=== PATIENT | female | born 1950 | race Caucasian/White ===

== ENCOUNTER → 2016-06-07 | Outpatient (REF) | payer MEDICAID ==
[~2016-06-07] MED LIST: ACCU40TA PO; ALBU17IN INH; CITA20TA4 PO; CITA40TA4 PO; Dulera INH; MEGE40TA PO; MONT10TA2 PO; MOTR200T44 PO; MULTCAP PO; SIMV40TA2 PO; THEO1CAP4 PO; VALI2TAB PO; VICO5TAB16 PO; albuterol sulfate NEB
[2016-06-07 18:20] LABS: ALBUMIN 3.8 GM/DL (3.2-5.2); ALBUMIN/GLOBULIN RATIO 1.23 (1.00-1.93); ALKALINE PHOSPHATASE 75 U/L (45-117); ALT/SGPT 24 U/L (12-78); ANION GAP 5 MEQ/L (8-16); AST/SGOT 16 U/L (15-37); BILIRUBIN,TOTAL 0.3 MG/DL (0.2-1.0); BLOOD UREA NITROGEN 14 MG/DL (7-18); CALCIUM LEVEL 9.6 MG/DL (8.8-10.2); CARBON DIOXIDE LEVEL 35 MEQ/L (21-32); CHLORIDE LEVEL 105 MEQ/L (98-107); CHOLESTEROL LEVEL 211 MG/DL (<200); CREATININE FOR GFR 0.91 MG/DL (0.55-1.02); GLOMERULAR FILTRATION RATE > 60.0 (>45); GLUCOSE, FASTING 103 MG/DL (80-110); POTASSIUM SERUM 4.5 MEQ/L (3.5-5.1); SODIUM LEVEL 145 MEQ/L (136-145); THEOPHYLLINE LEVEL 3.1 UG/ML (10.0-20.0); TOTAL PROTEIN 6.9 GM/DL (6.4-8.2); TRIGLYCERIDES LEVEL 190 MG/DL (<150)
[2016-06-07 19:03] LABS: BASO # 0.1 K/mm3 (0.0-0.2); EOS # 0.3 K/mm3 (0.0-0.50); EOS % 5.1 % (0.0-3.0); LARGE UNSTAINED CELL # 0.1 K/mm3 (0.0-0.4); LARGE UNSTAINED CELL % 2.1 % (0.0-4.0); LYMPH # 1.6 K/mm3 (1.5-4.5); LYMPH % 25.9 % (24.0-44.0); MEAN CORPUSCULAR HGB CONC 30.6 g/dl (32.0-36.5); MEAN CORPUSCULAR VOLUME 91.5 fl (80.0-96.0); MONO # 0.3 K/mm3 (0.0-0.8); MONO % 4.5 % (0.0-5.0); NEUTROPHILS # 3.7 K/mm3 (1.8-7.7); NEUTROPHILS % 61.4 % (36.0-66.0); PLATELET COUNT, AUTOMATED 232 k/mm3 (150-450); RED CELL DISTRIBUTION WIDTH 13.3 % (11.5-14.5)
== END ==
LOC: M LAB REF 16:41
PROVIDERS: ATTEND Nurse Practitioner Adult Health
DX: J45.909 Unspecified asthma, uncomplicated (principal); E78.00 Pure hypercholesterolemia, unspecified; E11.9 Type 2 diabetes mellitus without complications; I10 Essential (primary) hypertension

== ENCOUNTER → 2016-10-06 | Outpatient (REF) | payer MEDICARE, MEDICAID ==
[~2016-10-06] MED LIST changes: -MEGE40TA PO; +MEGE40TA18 PO
== END ==
LOC: M LAB REF 10:32
PROVIDERS: ATTEND Physician Assistant
DX: N39.0 Urinary tract infection, site not specified (principal)

== ENCOUNTER → 2017-04-07 | Outpatient (REF) | payer MEDICARE ==
[2017-04-07 15:44] LABS: THEOPHYLLINE LEVEL 13.3 UG/ML (10.0-20.0)
== END ==
LOC: M LAB REF 15:17
DX: J45.909 Unspecified asthma, uncomplicated (principal)
CPT/HCPCS: 80198

== ENCOUNTER 2017-10-07 11:36 | Emergency (ER) | payer MEDICARE, MEDICAID ==
[2017-10-07 15:05] LABS: BASO # 0.1 10^3/uL (0.0-0.2); BASO % 0.8 % (0.0-1.0); EOS # 0.3 10^3/uL (0.0-0.50); EOS % 4.9 % (0.0-3.0); HEMATOCRIT 39.9 % (36.0-47.0); HEMOGLOBIN 11.7 g/dl (12.0-15.5); IMMATURE GRANULOCYTE % 0.3 % (0-3.0); LYMPH # 1.4 10^3/uL (1.5-4.5); LYMPH % 22.5 % (24.0-44.0); MEAN CORPUSCULAR HGB CONC 29.3 g/dl (32.0-36.5); MEAN CORPUSCULAR VOLUME 88.7 fl (80.0-96.0); MONO # 0.6 10^3/uL (0.0-0.8); MONO % 9.5 % (0.0-5.0); NEUTROPHILS # 3.8 10^3/uL (1.8-7.7); PLATELET COUNT, AUTOMATED 245 10^3/uL (150-450); RED CELL DISTRIBUTION WIDTH 16.4 % (11.5-14.5); WHITE BLOOD COUNT 6.1 10^3/uL (4.0-10.0)
[2017-10-07 15:14] LABS: INR 0.98; PROTHROMBIN TIME 13.1 SECONDS (12.1-14.4)
[2017-10-07 15:15] LABS: PARTIAL THROMBOPLASTIN TIME 23.9 SECONDS (25.4-37.6)
[2017-10-07 15:22] LABS: ANION GAP 5 MEQ/L (8-16); BLOOD UREA NITROGEN 11 MG/DL (7-18); CALCIUM LEVEL 9.5 MG/DL (8.8-10.2); CARBON DIOXIDE LEVEL 32 MEQ/L (21-32); CHLORIDE LEVEL 107 MEQ/L (98-107); CREATININE FOR GFR 1.37 MG/DL (0.55-1.30); GLOMERULAR FILTRATION RATE 41.3 (>45); GLUCOSE, FASTING 83 MG/DL (70-100); POTASSIUM SERUM 3.7 MEQ/L (3.5-5.1); SODIUM LEVEL 144 MEQ/L (136-145)
[2017-10-07] MEDS: APIXABAN 5 MG TAB (ELIQUIS) PO (16:44)
== END 2017-10-07 16:46 | disposition home or self-care (01) ==
LOC: M ED 11:36
DX: I82.432 Acute embolism and thrombosis of left popliteal vein (principal); W10.8XXA Fall (on) (from) other stairs and steps, initial encounter; Y92.098 Other place in other non-institutional residence as the place of occurrence of the external cause; R51 Headache; M51.37 Other intervertebral disc degeneration, lumbosacral region; M16.11 Unilateral primary osteoarthritis, right hip; M85.851 Other specified disorders of bone density and structure, right thigh; I10 Essential (primary) hypertension; J45.909 Unspecified asthma, uncomplicated; E11.9 Type 2 diabetes mellitus without complications; H26.9 Unspecified cataract; F41.9 Anxiety disorder, unspecified; F32.9 Major depressive disorder, single episode, unspecified
CPT/HCPCS: 72110

== ENCOUNTER → 2018-02-01 | Outpatient (REF) | payer MEDICARE ==
[2018-02-01 18:36] LABS: THEOPHYLLINE LEVEL 14.4 UG/ML (10.0-20.0)
== END ==
LOC: M LAB REF 15:47
DX: J45.909 Unspecified asthma, uncomplicated (principal)
CPT/HCPCS: 80198

== ENCOUNTER → 2018-08-23 | Outpatient (REF) | payer OTHER ==
[~2018-08-23] MED LIST changes: +AMBI5TAB PO; -CITA20TA4 PO; +CITA20TA6 PO; +CLON0.5T8 PO; +ELIQ5TAB PO; +FURO40TA2 PO; +METO1TAB7 PO; +TRAM50TA2 PO; +TRAZ-163 PO; -VICO5TAB16 PO; +VICO5TAB17 PO; +VITA1TAB23 PO; +[UNRECOGNIZED DRUG - OTHER] PO
== END ==
LOC: M LAB REF 17:33
PROVIDERS: ATTEND Nurse Practitioner Adult Health
DX: J45.909 Unspecified asthma, uncomplicated (principal)

== ENCOUNTER → 2019-01-17 | Outpatient (REF) | payer OTHER ==
[2019-01-17 17:32] LABS: APPEARANCE, URINE CLOUDY (CLEAR); BACTERIA, URINE AUTO 1+ (NEGATIVE); BILIRUBIN, URINE AUTO NEGATIVE (NEGATIVE); BLOOD, URINE BLOOD 1+ (NEGATIVE); CALCIUM OXALATE CRYSTALS MODERATE; COLOR, URINE YELLOW (YELLOW); GLUCOSE, URINE (UA) AUTO NEGATIVE (NEGATIVE); KETONE, URINE AUTO NEGATIVE (NEGATIVE); LEUKOCYTE ESTERASE, URINE AUTO 3+ (NEGATIVE); NITRITE, URINE AUTO POSITIVE (NEGATIVE); PROTEIN, URINE AUTO 2+ mg/dL (NEGATIVE); RBC, URINE AUTO 38 /HPF (0-3); SPECIFIC GRAVITY URINE AUTO 1.015 (1.002-1.035); SQUAMOUS EPITHELIAL CELL UR AU 3 /HPF (0-6); UROBILINOGEN, URINE AUTO 0.2 mg/dL (0.0-2.0); WBC, URINE AUTO TNTC /HPF (0-3)
== END ==
LOC: M LAB REF 16:37
PROVIDERS: ATTEND Obstetrics & Gynecology
DX: B37.2 Candidiasis of skin and nail (principal); N32.81 Overactive bladder; N39.41 Urge incontinence

== ENCOUNTER → 2019-01-31 | Outpatient (REF) | payer OTHER, MEDICARE ==
[2019-01-31 13:40] LABS: THEOPHYLLINE LEVEL < 2.0 UG/ML (10.0-20.0)
[2019-01-31 14:06] LABS: ALBUMIN 3.4 GM/DL (3.2-5.2); ALT/SGPT 29 U/L (12-78); BILIRUBIN,TOTAL 0.3 MG/DL (0.2-1.0); BLOOD UREA NITROGEN 25 MG/DL (7-18); CALCIUM LEVEL 9.9 MG/DL (8.8-10.2); CARBON DIOXIDE LEVEL 34 MEQ/L (21-32); CHLORIDE LEVEL 106 MEQ/L (98-107); CHOLESTEROL LEVEL 187 MG/DL (<200); CHOLESTEROL RISK RATIO 3.596 (<5); CREATININE FOR GFR 1.41 MG/DL (0.55-1.30); GLOMERULAR FILTRATION RATE 39.7 (>45); GLUCOSE, FASTING 92 MG/DL (70-100); HDL CHOLESTEROL 52 MG/DL (>40); LDL CHOLESTEROL 83 MG/DL (<100); NON-HDL-C 135 MG/DL; SODIUM LEVEL 143 MEQ/L (136-145); TRIGLYCERIDES LEVEL 258 MG/DL (<150)
== END ==
LOC: M LAB REF 12:24
PROVIDERS: ATTEND Nurse Practitioner Adult Health
DX: J45.909 Unspecified asthma, uncomplicated (principal); E11.9 Type 2 diabetes mellitus without complications; E78.00 Pure hypercholesterolemia, unspecified; I10 Essential (primary) hypertension

== ENCOUNTER 2019-02-25 10:28 | Inpatient (IN) | payer MEDICARE ==
[~2019-02-25] VITALS: Ht 160 cm; Wt 115.9 kg
[~2019-02-25 10:28] MED LIST changes: +CLON0.5T2 PO; -CLON0.5T8 PO; -SIMV40TA2 PO; +SIMV40TA20 PO
[2019-02-25] MEDS ORDERED: ASPI81TA85 PO (10:53)
[2019-02-25] MEDS ORDERED: NS 1,000 ML IV ONE ×2 (11:15→13:00)
[2019-02-25] MEDS ORDERED: ONDANSETRON 4MG/2ML VIAL (J2405) IV ONE (11:15)
[2019-02-25 11:28] LABS: BASO % 0.1 % (0.0-1.0); EOS % 0.3 % (0.0-3.0); HEMATOCRIT 37.2 % (36.0-47.0); HEMOGLOBIN 11.5 g/dl (12.0-15.5); LYMPH # 0.3 10^3/uL (1.5-5.0); LYMPH % 3.9 % (24.0-44.0); MEAN CORPUSCULAR HEMOGLOBIN 27.1 pg (27.0-33.0); MEAN CORPUSCULAR HGB CONC 30.9 g/dl (32.0-36.5); MEAN CORPUSCULAR VOLUME 87.7 fl (80.0-96.0); MONO # 0.7 10^3/uL (0.0-0.8); MONO % 9.4 % (0.0-5.0); NEUTROPHILS # 5.9 10^3/uL (1.5-8.5); NEUTROPHILS % 85.7 % (36.0-66.0); PLATELET COUNT, AUTOMATED 160 10^3/uL (150-450); RED BLOOD COUNT 4.24 10^6/uL (4.00-5.40); WHITE BLOOD COUNT 6.9 10^3/uL (4.0-10.0)
[2019-02-25 12:04] LABS: ALBUMIN 2.4 GM/DL (3.2-5.2); BILIRUBIN,DIRECT 0.3 MG/DL (0.0-0.2); BILIRUBIN,TOTAL 0.6 MG/DL (0.2-1.0); CALCIUM LEVEL 9.1 MG/DL (8.8-10.2); CREATININE FOR GFR 7.33 MG/DL (0.55-1.30); GLOMERULAR FILTRATION RATE 5.9 (>45); POTASSIUM SERUM 4.9 MEQ/L (3.5-5.1); TOTAL PROTEIN 6.5 GM/DL (6.4-8.2)
[2019-02-25] MEDS ORDERED: MYRB25TA PO (12:45)
[2019-02-25] MEDS ORDERED: FLUO40CA PO (12:45)
[2019-02-25] MEDS ORDERED: ANOR1AER INH (12:45)
[2019-02-25] MEDS ORDERED: BUPR1TAB52 PO (12:45)
[2019-02-25] MEDS ORDERED: ALB2.5NEB INH (12:45)
[2019-02-25] MEDS ORDERED: VENTAER INH (12:45)
[2019-02-25 13:01] LABS: INR 1.24; PARTIAL THROMBOPLASTIN TIME 27.6 SECONDS (25.0-38.4); PROTHROMBIN TIME 15.3 SECONDS (11.8-14.0)
[2019-02-25] MEDS ORDERED: LIDOCAINE 2% 5ML JELLY UROJET TOP ONE (13:45)
[2019-02-25] MEDS ORDERED: cefTRIAXone SOD 1 GM in D5W MINI-BAG PLUS 50 ML IV ONE (13:45)
--- NOTE | 2019-02-25 14:03 | REP ---
REASON: Renal failure. The technique utilized in obtaining the radiograph has magnified the cardiac silhouette and accentuated the interstitial markings. There is cardiomegaly accentuated by technique. The lung deutsch are unchanged from 03/25/2014. No new abnormal opacities are suspected on this markedly limited portable examination. Electronically Signed by Melo Felix DO 02/25/2019 02:17 P
--- NOTE | 2019-02-25 14:07 | REP ---
REASON: Vomiting. Limited evaluation of the solid intra-abdominal organs show no gross abnormalities. Limited evaluation of the pancreas and adrenal glands show no gross abnormalities. There are surgical clips in the gallbladder fossa from previous cholecystectomy. There is mild right-sided hydronephrosis and periureteral edema. In the right renal collecting system at the UP junction, there is a 1.1 cm sized calculus. There is mild left-sided hydronephrosis and hydroureter. In the distal left ureter, there is a 9 mm sized calculus. There is a ventral hernia through which a loop of small bowel resides. There is no intestinal obstruction. There is no free fluid or free air in the abdomen or pelvis. There are no urinary bladder calcifications. There are chronic changes seen involving the imaged osseous structures. IMPRESSION: Bilateral collecting system calculi with resultant findings as described above. Small ventral hernia. Other findings as described above. Electronically Signed by Melo Felix DO 02/25/2019 02:17 P
[2019-02-25] MEDS ORDERED: ALBUTEROL SULFATE 2.5 MG/0.5 ML INH NEB SOLN INH PRN (14:45)
[2019-02-25] MEDS ORDERED: clonazePAM 0.5 MG TAB PO PRN (14:45)
--- NOTE | 2019-02-25 15:07 | HPEPDOC ---
[facility] Medical History & Physical Date of Admission Feb 25, 2019 Date of Service: Feb 25, 2019 Attending Physician: MARCO A LEON MD History and Physical CHIEF COMPLAINT: Vomiting and diarrhea HISTORY OF PRESENT ILLNESS: 68-year-old female with past medical history of asthma, hypertension and hyperlipidemia presents with vomiting, abdominal pain or diarrhea for the past 3 days. She reports feeling well up until the symptoms started 3 days ago with vomiting and diarrhea along with right and left flank pain. She also reports associated fever, chills or night sweats. She has never had similar symptoms in the past, denies any sick contacts. In the ED she was found to have acute kidney injury along with bilateral hydronephrosis with obstructive uropathy. Urology was consulted by emergency department, plan for possible surgical intervention later today/tomorrow. Patient denies any chest pain, shortness of breath, headache or joint pain at this time. 10 point review of system is negative except for above PAST MEDICAL HISTORY: 1. Asthma. 2. Hypertension. 3. Hyperlipidemia. PAST SURGICAL HISTORY: 1. 3. 2. Cholecystectomy. SOCIAL HISTORY: Never smoker. Social alcohol use. Denies drug use FAMILY HISTORY: Mother with ovarian cancer Father with [place] ALLERGIES: Please see below. HOME MEDICATIONS: Please see below. PHYSICAL EXAMINATION: VITAL SIGNS: Please see below. GENERAL: No distress HEENT: Normocephalic, atraumatic, moist mucous membranes NECK: Supple CARDIOVASCULAR EXAMINATION: S1, S2, no murmurs RESPIRATORY EXAMINATION: Diminished, Clear to auscultation, no wheezing ABDOMINAL EXAMINATION: Soft, mild tenderness palpation in the right and left lower quadrants, nondistended, positive bowel sounds EXTREMITIES: Range of motion intact SKIN: No rash NEUROLOGICAL EXAMINATION: Alert and oriented 3, no focal deficits PSYCHIATRIC EXAMINATION: Calm and cooperative LABORATORY DATA: See below. IMAGING: CT abdomen and pelvis with bilateral hydronephrosis with obstructive uropathy MICROBIOLOGY: Please see below. ASSESSMENT: 68 year old female with past medical history of asthma, hypertension, hyperlipidemia, peak admitted for acute kidney injury secondary to bilateral obstructive uropathy and hydronephrosis. PLAN: 1. Acute kidney injury. Creatinine greater than 7, was 1.5 one month ago, imaging with bilateral hydronephrosis and obstructive uropathy, urology consulted by emergency department, plan for possible surgical intervention later today/tomorrow. Patient is at low risk for this low to moderate risk procedure, medically cleared for surgery, no need for additional workup prior to surgery. UTI Ceftriaxone, IV fluids, urine and blood cultures pending, pain control. 2. Hypertension. Continue home metoprolol 3. Hyperlipidemia. Continue home simvastatin 4. Asthma. Stable, continue home Anoro Ellipta, Singulair and albuterol when necessary DVT prophylaxis: Heparin subcutaneous GI prophylaxis: Not needed Vital Signs Vital Signs Date Time Temp Pulse Resp B/P (MAP) Pulse Ox O2 Delivery O2 Flow Rate FiO2 02/25/19 13:03 64 18 136/63 (87) 97 Room Air 02/25/19 10:39 99.6 Laboratory Data Labs 24H Laboratory Tests 2 02/25/19 11:14: Immature Granulocyte % (Auto) 0.6, Neutrophils (%) (Auto) 85.7H, Lymphocytes (%) (Auto) 3.9L, Monocytes (%) (Auto) 9.4H, Eosinophils (%) (Auto) 0.3, Basophils (%) (Auto) 0.1, Neutrophils # (Auto) 5.9, Lymphocytes # (Auto) 0.3L, Monocytes # (Auto) 0.7, Eosinophils # (Auto) 0.0, Basophils # (Auto) 0.0, Nucleated Red Blood Cells % (auto) 0.0, Anion Gap 11, Glomerular Filtration Rate 5.9L, Lactic Acid Level 1.1, Calcium Level 9.1, Total Bilirubin 0.6, Direct Bilirubin 0.3H, Aspartate Amino Transf (AST/SGOT) 29, Alanine Aminotransferase (ALT/SGPT) 39, Alkaline Phosphatase 116, Total Protein 6.5, Albumin 2.4L, Albumin/Globulin Ratio 0.59L, Amylase Level 19L, Lipase 79 02/25/19 12:31: Prothrombin Time 15.3H, Prothromb Time International Ratio 1.24, Activated Partial Thromboplast Time 27.6 02/25/19 12:59: Urine Color YELLOW, Urine Appearance CLEAR, Urine pH 7.0, Urine Specific [place] 1.008, Urine Protein 1+H, Urine Glucose (UA) NEGATIVE, Urine Ketones NEGATIVE, Urine Blood 2+H, Urine Nitrite NEGATIVE, Urine Bilirubin NEGATIVE, Urine Urobilinogen 0.2, Urine Leukocyte Esterase 3+H, Urine WBC (Auto) 40H, Urine RBC (Auto) 4H, Urine Hyaline Casts (Auto) 0, Urine Bacteria (Auto) NEGATIVE, Urine Squamous Epithelial Cells 0, Urine Sperm (Auto) CBC/BMP Laboratory Tests 02/25/19 11:14 Microbiology Microbiology 02/25/19 Urine Culture, Received Pending 02/25/19 Blood Culture, Received Pending 02/25/19 Blood Culture, Received Pending Home Medications Scheduled Ascorbic Acid (Vitamin C) 250 Mg Tab, 250 MG PO DAILY Aspirin (Aspir 81) 81 Mg Tablet.dr, 81 MG PO DAILY Bupropion HCl (Bupropion HCl Sr) 100 Mg Tab.sr.12h, 100 MG PO BID Fluoxetine Hcl (Fluoxetine HCl) 40 Mg Capsule, 80 MG PO DAILY Metoprolol Succinate (Metoprolol Succinate) 50 Mg Tab, 50 MG PO DAILY Mirabegron (Myrbetriq) 25 Mg Tab.er.24h, 25 MG PO DAILY Montelukast Sodium (Montelukast Sodium) 10 Mg Tab, 10 MG PO QHS Multivitamin (Multivitamins) 1 Cap Cap, 1 CAP PO DAILY Simvastatin (Simvastatin) 40 Mg Tab, 40 MG PO QHS Theophylline Anhydrous (Elías-24) 300 Mg Cap, 300 MG PO BID Trazodone HCl (Trazodone HCl) 100 Mg Tab, 50 MG PO QPM Scheduled PRN Albuterol Sulfate (Albuterol Sulfate) 2.5 Mg/0.5 Ml Vial.neb, 2.5 MG INH Q4H PRN for SOB/WHEEZING Albuterol Sulfate (Ventolin Hfa) 18 Gm Hfa.aer.ad, 2 PUFF INH Q4-6HP PRN for wheezing Clonazepam (Clonazepam) 0.5 Mg Tab, 0.5 MG PO BID PRN for anxiety Tramadol HCl (Tramadol HCl) 50 Mg Tab, 50 MG PO TID PRN for pain Umeclidinium Brm/Vilanterol Tr (Anoro Ellipta 62.5-25 Mcg INH) 1 Each Blst.w.dev, 1 PUFF INH DAILY PRN for SHORTNESS OF BREATH Allergies Coded Allergies: No Known Drug Allergies (Verified Allergy, Unknown, 02/25/19) A-FIB/CHADSVASC A-FIB History Current/History of A-Fib/PAF?: No MARCO A LEON MD Feb 25, 2019 15:07
--- NOTE | 2019-02-25 15:59 | SMCUROLCON ---
Urology Consultation General Date of Consultation 02/25/19 Reason For Consultation This patient is seen for Acute Renal Failure Hydronephrititis Uti. History of Present Illness Patient is a 68-year-old female with past medical history of asthma, hypertension and hyperlipidemia presents with vomiting, abdominal pain or diarrhea for the past 3 days. She reports feeling well up until the symptoms started 3 days ago with vomiting and diarrhea along with right and left flank pain. She also reports associated fever, chills or night sweats. She has never had similar symptoms in the past, denies any sick contacts. In the ED she was found to have acute kidney injury along with bilateral hydronephrosis with obstructive uropathy. Patient denies any chest pain, shortness of breath, headache or joint pain at this time. Past Medical History Medical History Past history significant with asthma, hypertension and hyperlipidemia Surgical Hstory Past surgical history significant for 3 and cholecystectomy Social History * Smoker: non-smoker Alcohol: occationally Drugs: denies Medications Current Medications Current Medications Medications (Trade) Dose Ordered Sig/Kendal Route PRN Reason Start Time Stop Time Status Last Admin Dose Admin Albuterol Sulfate (Proventil Neb) 2.5 mg RQ4H PRN INH SOB/WHEEZING 02/25/19 14:45 Ascorbic Acid (Vitamin C) 250 mg DAILY PO 02/26/19 09:00 Aspirin (Ecotrin) 81 mg DAILY PO 02/26/19 09:00 Bupropion HCl (Wellbutrin Sr) 100 mg BID PO 02/25/19 21:00 Ceftriaxone Sodium 1 gm/ Dextrose 50 ml @ 100 mls/hr Q24H IV 02/26/19 14:00 Clonazepam (KlonoPIN) 0.5 mg BID PRN PO anxiety 02/25/19 14:45 Fluoxetine HCl (PROzac) 80 mg DAILY PO 02/26/19 09:00 Heparin Sodium (Porcine) (Heparin) 5,000 units Q8H SC 02/25/19 22:00 Hold Home Med (Med Rec Complete!) ASDIRECTED XX 02/25/19 13:00 02/25/19 12:51 DC Metoprolol Succinate (TopROL XL) 50 mg DAILY PO 02/26/19 09:00 Montelukast Sodium (Singulair) 10 mg QHS PO 02/25/19 21:00 Non-Formulary Medication 1 ea DAILY INH 02/26/19 09:00 UNV Patient Own Medication (Patient'S Own Med) Anoro Ellipta 62.5... DAILY INH 02/26/19 09:00 UNV Simvastatin (Zocor) 40 mg QHS PO 02/25/19 21:00 Sodium Chloride 1,000 ml @ 125 mls/hr Q8H IV 02/25/19 16:00 Theophylline (Elías-24) 300 mg BID PO 02/25/19 21:00 Tramadol HCl (Ultram) 50 mg TID PRN PO pain 02/25/19 14:45 Trazodone HCl (Desyrel) 50 mg QPM PO 02/25/19 21:00 Allergies Allergies: Coded Allergies: No Known Drug Allergies (Verified Allergy, Unknown, 02/25/19) Review of Systems General: Denies: ROS Unobtainable, Chills, Night Sweats, Fatigue, Malaise, Normal Appetite, Other Symptoms Constitutional: Reports: Chills; Denies: Fever, Sweats, Weakness, Malaise, Other Eyes: Denies: Pain, Vision change, Conjunctivae inflammation, Eyelid inflammation, Redness, Other ENT: Denies: Head Aches, Ear Pain, Dysphagia, Sinus Congestion, Post Nasal Drip, Sore Throat, Epistaxis, Other Symptoms Skin: Denies: Rash, Lesions, Jaundice, Bruising, Itching, Dry, Breakdown, Nail Changes, Other Pulmonary: Denies: Dyspnea, Cough, Pleuritic Chest Pain, Other Symptoms Cardiovascular: Denies Chest Pain, Denies Palpitations, Denies Orthopnea, Denies Paroxysmal Noc. Dyspnea, Denies Edema, Denies Lt Headedness, Denies Other Symptoms Gastrointestinal: Denies: Nausea, Vomiting, Abdominal Pain, Diarrhea, Constipation, Melena, Hematochezia, Other Symptoms Genitourinary: Reports: Incontinence, Other Symptoms (urgency and urge incontinence) Hematologic: Denies: Bruising, Bleeding Excessively, Petecchia, Purpura, Enlarged Lymph Nodes, Other Hematologic Endocrine: Denies: Polydipsia, Polyphagia, Polyuria, Heat Intolerance, Cold Intolerance, Other Endocrine Sx Musculoskeletal: Denies: Neck Pain, Back Pain, Shoulder Pain, Arm Pain, Hand Pain, Leg Pain, Foot Pain, Joint Pain, Muscle Pain, Spasms, Other Symptoms Neurological: Denies: Weakness, Numbness, Incoordination, Change in Speech, Confusion, Seizures, Other Symptoms Psych: Denies: Mood Normal, Anxiety, Depression, Memory Issues, Thoughts of Self Harm, Anger, Thoughts of harming Other, Other Psych Physical Examination General Exam: Cooperative, No Acute Distress EYE EXAM: PERRLA, Conjunctiva & lids normal, EOMI, Sclera icteric, Ptosis, Other Eye Symptoms ENT EXAM: No: Atraumatic, Mucous membr. moist/pink, Pharynx Normal, Tongue Midline, Pharyngeal Edema, Nares Patent, Tympanic Membranes Normal, Ext Auditory Canal Nml, Pinna Normal, Other ENT Neck Exam: No: Supple, JVD, thyromegaly, +2 carotid pulse wo bruit, Lymphadenopathy, Other Chest Exam: Clear to auscultation Heart Exam: Rate Normal Abdomen Exam: Normal Bowel Sounds Extremity Exam: No: Clubbing, Cyanosis, Edema, Normal Pulses, Tenderness, Swelling, Other Skin Exam: No: Nl turgor and temperature, Rash, Breakdown, Lesion, Pruritus, Other skin issue Neuro Exam: Normal Speech, Strength at 5/5 X4 ext Psych Exam: Mental status NL Vital Signs/I&O Vital Signs Date Time Temp Pulse Resp B/P (MAP) Pulse Ox O2 Delivery O2 Flow Rate FiO2 02/25/19 13:03 64 18 136/63 (87) 97 Room Air 02/25/19 10:39 99.6 Laboratory Data 24H Labs Laboratory Tests 2 02/25/19 11:14: Immature Granulocyte % (Auto) 0.6, Neutrophils (%) (Auto) 85.7H, Lymphocytes (%) (Auto) 3.9L, Monocytes (%) (Auto) 9.4H, Eosinophils (%) (Auto) 0.3, Basophils (%) (Auto) 0.1, Neutrophils # (Auto) 5.9, Lymphocytes # (Auto) 0.3L, Monocytes # (Auto) 0.7, Eosinophils # (Auto) 0.0, Basophils # (Auto) 0.0, Nucleated Red Blood Cells % (auto) 0.0, Anion Gap 11, Glomerular Filtration Rate 5.9L, Lactic Acid Level 1.1, Calcium Level 9.1, Total Bilirubin 0.6, Direct Bilirubin 0.3H, Aspartate Amino Transf (AST/SGOT) 29, Alanine Aminotransferase (ALT/SGPT) 39, Alkaline Phosphatase 116, Total Protein 6.5, Albumin 2.4L, Albumin/Globulin Ratio 0.59L, Amylase Level 19L, Lipase 79 02/25/19 12:31: Prothrombin Time 15.3H, Prothromb Time International Ratio 1.24, Activated Partial Thromboplast Time 27.6 02/25/19 12:59: Urine Color YELLOW, Urine Appearance CLEAR, Urine pH 7.0, Urine Specific [place] 1.008, Urine Protein 1+H, Urine Glucose (UA) NEGATIVE, Urine Ketones NEGATIVE, Urine Blood 2+H, Urine Nitrite NEGATIVE, Urine Bilirubin NEGATIVE, Urine Urobilinogen 0.2, Urine Leukocyte Esterase 3+H, Urine WBC (Auto) 40H, Urine RBC (Auto) 4H, Urine Hyaline Casts (Auto) 0, Urine Bacteria (Auto) NEGATIVE, Urine Squamous Epithelial Cells 0, Urine Sperm (Auto) CBC/BMP Laboratory Tests 02/25/19 11:14 Microbiology Microbiology 02/25/19 Urine Culture, Received Pending 02/25/19 Blood Culture, Received Pending 02/25/19 Blood Culture, Received Pending Assessment X-Ray obtained in the ED 02/25/2019: Patient with a chest x-ray obtained emergency room which states there is cardiomegaly accentuated by technique. Lung deutsch are unchanged from 03/25/2014. No new abnormal opacities are suspected on this markedly limited portable exam. CT scan obtained emergency room bilateral collecting system calculi with resultant finding of mild right hydronephrosis and periureteral edema. In the right renal collecting system at the UPJ there is a 1.1 cm size stone. There is mild left sided hydronephrosis with hydroureter. In the distal left ureter there is a 9 mm size calculus. Patient was significantly elevated BUN/creatinine associated with bilateral renal calculus. Most likely elevated BUN/creatinine is prerenal secondary to days of GI symptoms. However, bilateral obstruction in this patient is concerning she will need surgical intervention. Plan Operating room has been contacted and patient has been made nothing by mouth. Procedure bilateral ureteral stent placement with retrograde pyelograms were discussed with the patient and significant other. All questions were answered to their satisfaction. Time Spent on Consult: Time Spent / Consult (Minutes): 40 CRISTINA TAPIA MD Feb 25, 2019 15:59
[2019-02-25] MEDS: NS 1,000 ML IV SCH ×2 (16:27→23:47)
[2019-02-25] MEDS ORDERED: CONRAY-60 60% 50ML VIAL (Q9961) As Ordered ONE (18:05)
[2019-02-25] MEDS ORDERED: PROPOFOL 200 MG/20 ML VIAL As Ordered ONE ×2 (18:16→19:12)
[2019-02-25] MEDS ORDERED: LIDOCAINE 2% INJ 100 MG/5 ML SDV (FOR ANES.) As Ordered ONE (18:16)
[2019-02-25] MEDS ORDERED: fentaNYL 100 MCG/2 ML INJECTION (J3010) As Ordered ONE (18:16)
[2019-02-25] MEDS ORDERED: MIDAZOLAM INJ 2 MG/2 ML VIAL (J2250) As Ordered ONE (18:17)
[2019-02-25] MEDS ORDERED: LIDOCAINE 2% 5ML JELLY UROJET As Ordered ONE (18:48)
[2019-02-25] MEDS ORDERED: KETAMINE HCL 200 MG/20 ML VIAL As Ordered ONE (18:53)
--- NOTE | 2019-02-25 19:18 | ECGEPIP ---
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
[2019-02-25] MEDS ORDERED: LR 1,000 ML IV SCH (20:15)
[2019-02-25] MEDS ORDERED: METOCLOPRAMIDE INJ 10MG/2ML VIAL (J2765) IV PRN (20:15)
[2019-02-25] MEDS ORDERED: ONDANSETRON 4MG/2ML VIAL (J2405) IV PRN (20:15)
[2019-02-25] MEDS ORDERED: fentaNYL 100 MCG/2 ML INJECTION (J3010) IV PRN (20:15)
[2019-02-25 20:34] VITALS: BP 106/57
[2019-02-25 21:04] VITALS: BP 110/59
[2019-02-25] MEDS: MONTELUKAST 10 MG TAB PO SCH (22:04)
[2019-02-25] MEDS: SIMVASTATIN 40 MG TAB PO SCH (22:04)
[2019-02-25] MEDS: THEOPHYLLINE (THEO-24) 100MG SR **CAPSULE PO SCH (22:04)
[2019-02-25] MEDS: buPROPion (WELLBUTRIN SR) 100 MG SR TAB PO SCH (22:04)
[2019-02-25] MEDS: traZODone 50 MG TAB PO SCH (22:05)
[2019-02-25] MEDS: traMADol 50 MG TAB PO PRN (22:06)
[2019-02-25 22:34] VITALS: BP 108/59
[2019-02-25 23:34] VITALS: BP 112/58
[2019-02-26] VITALS (8 sets, daily range): BP systolic 101–150; BP diastolic 57–65
[2019-02-26] MEDS ORDERED: traMADol 50 MG TAB PO ONE (04:15)
[2019-02-26] MEDS: HEPARIN SOD (PORCINE) 5000 UNITS/ML VIAL SC SCH ×3 (05:45→22:01)
[2019-02-26 08:06] LABS: ALBUMIN 2.1 GM/DL (3.2-5.2); BILIRUBIN,TOTAL 0.4 MG/DL (0.2-1.0); CALCIUM LEVEL 8.8 MG/DL (8.8-10.2); CREATININE FOR GFR 5.9 MG/DL (0.55-1.30); GLOMERULAR FILTRATION RATE 7.6 (>45); POTASSIUM SERUM 4.6 MEQ/L (3.5-5.1); TOTAL PROTEIN 5.8 GM/DL (6.4-8.2)
[2019-02-26] MEDS: ASPIRIN 81 MG ENTERIC TAB PO SCH (08:32)
[2019-02-26] MEDS: METOPROLOL SUCC (TopROL XL) 50MG **XL** TAB PO SCH (08:33)
[2019-02-26] MEDS: buPROPion (WELLBUTRIN SR) 100 MG SR TAB PO SCH ×2 (08:33→22:02)
[2019-02-26] MEDS: FLUoxetine 20 MG CAP PO SCH (08:33)
[2019-02-26] MEDS: ASCORBIC ACID 250 MG TAB PO SCH (08:33)
[2019-02-26] MEDS: NS 1,000 ML IV SCH ×2 (08:37→18:48)
[2019-02-26 08:55] LABS: HEMATOCRIT 33.9 % (36.0-47.0); HEMOGLOBIN 10.2 g/dl (12.0-15.5); MEAN CORPUSCULAR HEMOGLOBIN 26.8 pg (27.0-33.0); MEAN CORPUSCULAR HGB CONC 30.1 g/dl (32.0-36.5); MEAN CORPUSCULAR VOLUME 89.2 fl (80.0-96.0); PLATELET COUNT, AUTOMATED 164 10^3/uL (150-450); WHITE BLOOD COUNT 5.5 10^3/uL (4.0-10.0)
[2019-02-26] MEDS ORDERED: ANORO ELLIPTA (PATIENT'S OWN MED) INH SCH (09:00)
[2019-02-26] MEDS ORDERED: NON-FORMULARY 1 EA EA INH SCH (09:00)
--- NOTE | 2019-02-26 09:43 | REP ---
RETROGRADE URETEROGRAM: THREE VIEWS. HISTORY: Bilateral retrogrades. 38 seconds of fluoroscopy time is reported. FINDINGS: A sequence of three last image hold fluoroscopically obtained spot radiographs of the abdomen document bilateral ureteral cannulation, contrast injection, and stent positioning. Electronically Signed by Mac Lofton MD 02/26/2019 09:55 A
[2019-02-26] MEDS: THEOPHYLLINE (THEO-24) 100MG SR **CAPSULE PO SCH ×2 (11:27→22:01)
[2019-02-26] MEDS: cefTRIAXone SOD 1 GM in D5W MINI-BAG PLUS 50 ML IV SCH (13:33)
--- NOTE | 2019-02-26 21:09 | ECGEPIP ---
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
--- NOTE | 2019-02-26 21:38 | IPNPDOC ---
Subjective Review oF Systems Chief Complaint The patient is a 68-year-old female admitted with a reason for visit of Acute Renal Failure Hydronephrititis Uti. General: Denies: ROS Unobtainable, Chills, Night Sweats, Fatigue, Malaise, Normal Appetite, Other Symptoms Constitutional: Denies: Fever, Chills, Sweats, Weakness, Malaise, Other Eyes: Denies: Pain, Vision change, Conjunctivae inflammation, Eyelid inflammation, Redness, Other ENT: Denies: Head Aches, Ear Pain, Dysphagia, Sinus Congestion, Post Nasal Drip, Sore Throat, Epistaxis, Other Symptoms Skin: Denies: Rash, Lesions, Jaundice, Bruising, Itching, Dry, Breakdown, Nail Changes, Other Pulmonary: Denies: Dyspnea, Cough, Pleuritic Chest Pain, Other Symptoms Cardiovascular: Denies Chest Pain, Denies Palpitations, Denies Orthopnea, Baltazar es Paroxysmal Noc. Dyspnea, Denies Edema, Denies Lt Headedness, Denies Other Symptoms Gastrointestinal: Denies: Nausea, Vomiting, Abdominal Pain, Diarrhea, Constipation, Melena, Hematochezia, Other Symptoms Genitourinary: Denies: Dysuria, Frequency, Incontinence, Hematuria, Retention, Other Symptoms Hematologic: Denies: Bruising, Bleeding Excessively, Petecchia, Purpura, Enlarged Lymph Nodes, Other Hematologic Endocrine: Denies: Polydipsia, Polyphagia, Polyuria, Heat Intolerance, Cold Intolerance, Other Endocrine Sx Musculoskeletal: Denies: Neck Pain, Back Pain, Shoulder Pain, Arm Pain, Hand Pain, Leg Pain, Foot Pain, Joint Pain, Muscle Pain, Spasms, Other Symptoms Neurological: Denies: Weakness, Numbness, Incoordination, Change in Speech, Confusion, Seizures, Other Symptoms Psych: Denies: Mood Normal, Anxiety, Depression, Memory Issues, Thoughts of Self Harm, Anger, Thoughts of harming Other, Other Psych Objective Physical Examination General Exam: Cooperative, No Acute Distress Eye Exam: PERRLA, Conjunctiva & lids normal ABDOMEN EXAM: Normal bowel sounds, Soft; No: BS Hyperactive, BS Hypoactive, Tenderness, Hepatospenomegaly, Mass, He rnia, Other Extremity Exam: No: Clubbing, Cyanosis, Edema, Normal pulses, Tenderness, Swelling, Other Skin Exam: No: Nl turgor and temperature, Rash, Breakdown, Lesion, Pruritus, Other skin issue Psych Exam: Mental status NL, Mood NL, Oriented x 3; No: Anxiety, Memory Intact, Other Vital Signs/I&O Vital Signs Date Time Temp Pulse Resp B/P (MAP) Pulse Ox O2 Delivery O2 Flow Rate FiO2 02/26/19 18:00 98.0 65 19 150/65 (93) 98 Room Air I&O- Last 24 Hours up to 6 AM 02/26/19 06:00 Intake Total 3000 ml Output Total 2125 ml Balance 875 ml Laboratory Data Labs 24H Laboratory Tests 2 02/26/19 06:11: Nucleated Red Blood Cells % (auto) 0.0, Anion Gap 11, Glomerular Filtration Rate 7.6L, Calcium Level 8.8, Magnesium Level 2.0, Total Bilirubin 0.4, Aspartate Amino Transf (AST/SGOT) 88H, Alanine Aminotransferase (ALT/SGPT) 79H, Alkaline Phosphatase 207H, Total Protein 5.8L, Albumin 2.1L, Albumin/Globulin Ratio 0.57L CBC/BMP Laboratory Tests 02/26/19 06:11 Microbiology Microbiology 02/25/19 Urine Culture, Received Pending 02/25/19 Urine Culture, Received Pending 02/25/19 Urine Culture, Received Pending 02/25/19 Blood Culture - Preliminary, Resulted No growth after 24 hours . All specim... 02/25/19 Blood Culture - Preliminary, Resulted No growth after 24 hours . All specim... Assessment/Plan Date Seen The patient was seen on 02/26/19. Patient Summary Patient stable. Afebrile being a creatinine decreased slightly. Patient has good urinary output and urine is clear Plan/VTE VTE Prophylaxis Ordered?: Yes Plan/Urinary Catheter Urinary Catheter: D/C Dupree Plan Continue to monitor patient be renal renal function. Dupree catheter able to be DC'd if no longer needed by the medicine team. Patient be discharged per the medicine team when they feel that the renal function is stabilized. Follow-up with Dr. Mccullough's office to manage renal stones. CRISTINA TAPIA MD Feb 26, 2019 21:38
--- NOTE | 2019-02-26 21:50 | ROOPDOC ---
[facility] [place] Report of Operation DATE OF PROCEDURE: 02/25/19 PREPROCEDURE DIAGNOSES: Bilateral obstructing renal calculus. POSTPROCEDURE DIAGNOSES: Same. PROCEDURE: Cystoscopy, retrograde pyelogram, bilateral ureteral stent placement. SURGEON: MD Reno PURCHASING ENGINEER: MD Ame ANESTHESIA: Mac. ESTIMATED BLOOD LOSS: Approximately minimal mL. COMPLICATIONS: None. REMARKS: . PROCEDURE NOTE: Patient 70-year-old female who was evaluated emergency room to have bilateral renal BUNs 78, creatinine 7.53. DESCRIPTION OF PROCEDURE: Risks, benefits and Complications were discussed with the patient prior to procedure. Procedure was discussed in detail patient signed the consent to approve the procedure. Patient was brought in the operating room, given Mac anesthesia. Wrapped and draped in a standard surgical fashion place in lithotomy position. 21 Hungarian cystoscope was placed in the urethra. Bladder was inspected. No abnormalities were noted. The left ureteral orifice identified FlexTip wire was used to cannulate the ureter. A Pollack catheter was placed over the wire. Wire was removed. Retrograde pyelogram was performed. Distal ureter obstruction was noted on the left side. Wire was placed through the Pollack catheter and was able to be cannulated up to the renal pelvis. Pollack catheter was then placed over the wire into the renal collecting system. Retrograde pyelogram was performed. Wire was replaced. Pollack catheter was removed. A 7 Hungarian ureteral stent was placed over the wire and under direct vision urine fluoroscopic guidance and cystoscopic guidance. The stent was passed into the renal collecting system and approximately end coiled in the collecting system. The kidney was immediately draining. Prior to placing the stent while the Pollack catheter is in place. A urine sample was obtained on the left side. We then turned to the right side process was repeated a UPJ stone was noted. Purulent urine immediately drained from the right collecting system. A sample was obtained and sent for culture. A quick retrograde pyelogram was obtained to identify the renal collecting system and assure proper stent placement. A 7 Hungarian double-J stent was placed over the wire into the renal collecting system under fluoroscopic and cystoscopic guidance. At the procedure. Both stents were coiled in the renal collecting systems and the bladder and we draining appropriately. Bladder was drained and refilled and irrigated. Dupree catheter was placed into the bladder and was draining appropriately and the balloon was inflated to 10 mL patient was awakened from anesthesia properly washed off, taken to recovery room and tolerated procedure CRISTINA Hill MD Feb 26, 2019 21:50
[2019-02-26] MEDS: traZODone 50 MG TAB PO SCH (22:01)
[2019-02-26] MEDS: SIMVASTATIN 40 MG TAB PO SCH (22:01)
[2019-02-26] MEDS: MONTELUKAST 10 MG TAB PO SCH (22:02)
[2019-02-26] MEDS: traMADol 50 MG TAB PO PRN (22:43)
[2019-02-27] MEDS: NS 1,000 ML IV SCH ×3 (04:30→13:59)
[2019-02-27] MEDS: HEPARIN SOD (PORCINE) 5000 UNITS/ML VIAL SC SCH ×3 (05:09→21:19)
[2019-02-27 06:00] VITALS: BP 140/55
[2019-02-27 06:27] LABS: HEMATOCRIT 34.9 % (36.0-47.0); HEMOGLOBIN 10.3 g/dl (12.0-15.5); MEAN CORPUSCULAR HEMOGLOBIN 26.6 pg (27.0-33.0); MEAN CORPUSCULAR HGB CONC 29.5 g/dl (32.0-36.5); MEAN CORPUSCULAR VOLUME 90.2 fl (80.0-96.0); PLATELET COUNT, AUTOMATED 191 10^3/uL (150-450); RED BLOOD COUNT 3.87 10^6/uL (4.00-5.40); WHITE BLOOD COUNT 5.6 10^3/uL (4.0-10.0)
[2019-02-27 06:50] LABS: BILIRUBIN,TOTAL 0.2 MG/DL (0.2-1.0); CALCIUM LEVEL 8.9 MG/DL (8.8-10.2); CREATININE FOR GFR 4.02 MG/DL (0.55-1.30); GLOMERULAR FILTRATION RATE 11.9 (>45); MAGNESIUM LEVEL 1.9 MG/DL (1.8-2.4); PHOSPHORUS LEVEL 3.2 MG/DL (2.5-4.9); POTASSIUM SERUM 4.5 MEQ/L (3.5-5.1); TOTAL PROTEIN 6.1 GM/DL (6.4-8.2)
--- NOTE | 2019-02-27 08:00 | IPNPDOC ---
Date Seen The patient was seen on 02/26/19. Progress Note HISTORY OF PRESENT ILLNESS: 68-year-old female with past medical history of asthma, hypertension and hyperlipidemia presents with vomiting, abdominal pain or diarrhea for the past 3 days. She reports feeling well up until the symptoms started 3 days ago with vomiting and diarrhea along with right and left flank pain. She also reports associated fever, chills or night sweats. She has never had similar symptoms in the past, denies any sick contacts. In the ED she was found to have acute kidney injury along with bilateral hydronephrosis with obstructive uropathy. Urology was consulted by emergency department, plan for possible surgical intervention later today/tomorrow. Patient denies any chest pain, shortness of breath, headache or joint pain at this time. 02/26/2019 Patient without complaints, underwent bilateral ureteral stent placement by urology, renal function improving, good urine output, tolerating diet. 10 point review of system is negative except for above HOME MEDICATIONS: Please see below. PHYSICAL EXAMINATION: VITAL SIGNS: Please see below. GENERAL: No distress HEENT: Normocephalic, atraumatic, moist mucous membranes NECK: Supple CARDIOVASCULAR EXAMINATION: S1, S2, no murmurs RESPIRATORY EXAMINATION: Diminished, Clear to auscultation, no wheezing ABDOMINAL EXAMINATION: Soft, nontender, nondistended, positive bowel sounds EXTREMITIES: Range of motion intact SKIN: No rash NEUROLOGICAL EXAMINATION: Alert and oriented 3, no focal deficits PSYCHIATRIC EXAMINATION: Calm and cooperative LABORATORY DATA: See below. IMAGING: CT abdomen and pelvis with bilateral hydronephrosis with obstructive uropathy MICROBIOLOGY: Please see below. ASSESSMENT: 68 year old female with past medical history of asthma, hypertension, hyperlipidemia, peak admitted for acute kidney injury secondary to bilateral obstructive uropathy and hydronephrosis. PLAN: 1. Acute kidney injury. Secondary to bilateral hydronephrosis due to obstructive uropathy, status post bilateral ureteral stent placement, renal function improving, continue IV hydration, good urine output, tolerating oral intake. UTI Ceftriaxone, Intra-Op cultures pending. 2. Hypertension. Continue home metoprolol 3. Hyperlipidemia. Continue home simvastatin 4. Asthma. Stable, continue home Anoro Ellipta, Singulair and albuterol when necessary DVT prophylaxis: Heparin subcutaneous GI prophylaxis: Not needed VS, I&O, 24H, Fishbone Vital Signs/I&O Vital Signs Date Time Temp Pulse Resp B/P (MAP) Pulse Ox O2 Delivery O2 Flow Rate FiO2 02/26/19 18:00 98.0 65 19 150/65 (93) 98 Room Air I&O- Last 24 Hours up to 6 AM 02/26/19 06:00 Intake Total 3000 ml Output Total 2125 ml Balance 875 ml Laboratory Data 24H LABS Laboratory Tests 2 02/26/19 06:11: Nucleated Red Blood Cells % (auto) 0.0, Anion Gap 11, Glomerular Filtration Rate 7.6L, Calcium Level 8.8, Magnesium Level 2.0, Total Bilirubin 0.4, Aspartate Amino Transf (AST/SGOT) 88H, Alanine Aminotransferase (ALT/SGPT) 79H, Alkaline Phosphatase 207H, Total Protein 5.8L, Albumin 2.1L, Albumin/Globulin Ratio 0.57L CBC/BMP Laboratory Tests 02/26/19 06:11 Microbiology Microbiology 02/25/19 Urine Culture, Received Pending 02/25/19 Urine Culture, Received Pending 02/25/19 Urine Culture, Received Pending 02/25/19 Blood Culture - Preliminary, Resulted No growth after 24 hours . All specim... 02/25/19 Blood Culture - Preliminary, Resulted No growth after 24 hours . All specim... MARCO A LEON MD Feb 26, 2019 20:39
[2019-02-27] MEDS: ASCORBIC ACID 250 MG TAB PO SCH (08:20)
[2019-02-27] MEDS: ASPIRIN 81 MG ENTERIC TAB PO SCH (08:20)
[2019-02-27] MEDS: buPROPion (WELLBUTRIN SR) 100 MG SR TAB PO SCH ×2 (08:21→21:19)
[2019-02-27] MEDS: FLUoxetine 20 MG CAP PO SCH (08:21)
[2019-02-27] MEDS: THEOPHYLLINE (THEO-24) 100MG SR **CAPSULE PO SCH ×2 (08:21→21:18)
[2019-02-27] MEDS: METOPROLOL SUCC (TopROL XL) 50MG **XL** TAB PO SCH (08:21)
[2019-02-27] MEDS: cefTRIAXone SOD 1 GM in D5W MINI-BAG PLUS 50 ML IV SCH (13:59)
[2019-02-27 14:00] VITALS: BP 135/54
[2019-02-27] MEDS ORDERED: PANTOPRAZOLE 40MG TAB (PROTONIX) PO ONE (17:00)
[2019-02-27] MEDS: traMADol 50 MG TAB PO PRN (17:18)
--- NOTE | 2019-02-27 19:00 | IPNPDOC ---
Date Seen The patient was seen on 02/27/19. Progress Note HISTORY OF PRESENT ILLNESS: 68-year-old female with past medical history of asthma, hypertension and hyperlipidemia presents with vomiting, abdominal pain or diarrhea for the past 3 days. She reports feeling well up until the symptoms started 3 days ago with vomiting and diarrhea along with right and left flank pain. She also reports associated fever, chills or night sweats. She has never had similar symptoms in the past, denies any sick contacts. In the ED she was found to have acute kidney injury along with bilateral hydronephrosis with obstructive uropathy. Urology was consulted by emergency department, plan for possible surgical intervention later today/tomorrow. Patient denies any chest pain, shortness of breath, headache or joint pain at this time. 02/26/2019 Patient without complaints, underwent bilateral ureteral stent placement by urology, renal function improving, good urine output, tolerating diet. 02/27/2019 Patient seen in the morning, comfortable in chair, reports improvement in abdominal/flank pain, tolerating diet, no other complaints at this time. 10 point review of system is negative except for above HOME MEDICATIONS: Please see below. PHYSICAL EXAMINATION: VITAL SIGNS: Please see below. GENERAL: No distress HEENT: Normocephalic, atraumatic, moist mucous membranes NECK: Supple CARDIOVASCULAR EXAMINATION: S1, S2, no murmurs RESPIRATORY EXAMINATION: Diminished, Clear to auscultation, no wheezing ABDOMINAL EXAMINATION: Soft, nontender, nondistended, positive bowel sounds EXTREMITIES: Range of motion intact SKIN: No rash NEUROLOGICAL EXAMINATION: Alert and oriented 3, no focal deficits PSYCHIATRIC EXAMINATION: Calm and cooperative LABORATORY DATA: See below. IMAGING: CT abdomen and pelvis with bilateral hydronephrosis with obstructive uropathy MICROBIOLOGY: Please see below. ASSESSMENT: 68 year old female with past medical history of asthma, hypertension, hyperlipidemia, peak admitted for acute kidney injury secondary to bilateral obstructive uropathy and hydronephrosis. PLAN: 1. Acute kidney injury. Secondary to bilateral hydronephrosis due to obstructive uropathy, status post bilateral ureteral stent placement, renal function improving, continue IV hydration, good urine output, tolerating oral intake. UTI Ceftriaxone, cultures grew pansensitive Escherichia coli. 2. Hypertension. Continue home metoprolol 3. Hyperlipidemia. Continue home simvastatin 4. Asthma. Stable, continue home Singulair and albuterol when necessary DVT prophylaxis: Heparin subcutaneous GI prophylaxis: Protonix VS, I&O, 24H, Fishbone Vital Signs/I&O Vital Signs Date Time Temp Pulse Resp B/P (MAP) Pulse Ox O2 Delivery O2 Flow Rate FiO2 02/27/19 18:37 18 02/27/19 14:00 97.8 63 135/54 (81) 98 Room Air I&O- Last 24 Hours up to 6 AM 02/27/19 06:00 Intake Total 4395 ml Output Total 5050 ml Balance -655 ml Laboratory Data 24H LABS Laboratory Tests 2 02/27/19 05:28: Nucleated Red Blood Cells % (auto) 0.0, Anion Gap 7L, Glomerular Filtration Rate 11.9L, Calcium Level 8.9, Phosphorus Level 3.2, Magnesium Level 1.9, Total Bilirubin 0.2, Aspartate Amino Transf (AST/SGOT) 28, Alanine Aminotransferase (ALT/SGPT) 58, Alkaline Phosphatase 186H, Total Protein 6.1L, Albumin 2.0L, Albumin/Globulin Ratio 0.49L CBC/BMP Laboratory Tests 02/27/19 05:28 Microbiology Microbiology 02/25/19 Urine Culture - Final, Complete Escherichia Coli 02/25/19 Urine Culture - Final, Complete 02/25/19 Urine Culture - Final, Complete Escherichia Coli 02/25/19 Blood Culture - Preliminary, Resulted No Growth after 48 hours. All Specime... 02/25/19 Blood Culture - Preliminary, Resulted No Growth after 48 hours. All Specime... MARCO A LEON MD Feb 27, 2019 19:00
[2019-02-27] MEDS: SIMVASTATIN 40 MG TAB PO SCH (21:18)
[2019-02-27] MEDS: traZODone 50 MG TAB PO SCH (21:18)
[2019-02-27] MEDS: MONTELUKAST 10 MG TAB PO SCH (21:18)
[2019-02-27 22:00] VITALS: BP 146/60
[2019-02-28] MEDS ORDERED: ACETAMINOPHEN TAB 650MG DOSE (2X325MG) PO PRN (01:00)
[2019-02-28] MEDS: traMADol 50 MG TAB PO PRN ×2 (01:29→16:38)
[2019-02-28] MEDS: NS 1,000 ML IV SCH (02:47)
[2019-02-28 05:37] LABS: HEMATOCRIT 34.6 % (36.0-47.0); HEMOGLOBIN 10.4 g/dl (12.0-15.5); MEAN CORPUSCULAR HEMOGLOBIN 27.1 pg (27.0-33.0); MEAN CORPUSCULAR HGB CONC 30.1 g/dl (32.0-36.5); MEAN CORPUSCULAR VOLUME 90.1 fl (80.0-96.0); PLATELET COUNT, AUTOMATED 215 10^3/uL (150-450); RED BLOOD COUNT 3.84 10^6/uL (4.00-5.40); WHITE BLOOD COUNT 6.2 10^3/uL (4.0-10.0)
[2019-02-28] MEDS: HEPARIN SOD (PORCINE) 5000 UNITS/ML VIAL SC SCH ×3 (05:59→21:07)
[2019-02-28 06:00] VITALS: BP 129/63
[2019-02-28 06:09] LABS: ALBUMIN 2.1 GM/DL (3.2-5.2); BILIRUBIN,TOTAL 0.2 MG/DL (0.2-1.0); CALCIUM LEVEL 8.7 MG/DL (8.8-10.2); CREATININE FOR GFR 2.62 MG/DL (0.55-1.30); GLOMERULAR FILTRATION RATE 19.4 (>45); MAGNESIUM LEVEL 1.6 MG/DL (1.8-2.4); PHOSPHORUS LEVEL 2.9 MG/DL (2.5-4.9); POTASSIUM SERUM 4.9 MEQ/L (3.5-5.1); TOTAL PROTEIN 5.9 GM/DL (6.4-8.2)
[2019-02-28] MEDS: PANTOPRAZOLE 40MG INJ (PROTONIX) (C9113) IV SCH (09:52)
[2019-02-28] MEDS: THEOPHYLLINE (THEO-24) 100MG SR **CAPSULE PO SCH ×2 (09:53→21:07)
[2019-02-28] MEDS: FLUoxetine 20 MG CAP PO SCH (09:53)
[2019-02-28] MEDS: buPROPion (WELLBUTRIN SR) 100 MG SR TAB PO SCH ×2 (09:53→21:07)
[2019-02-28] MEDS: ASCORBIC ACID 250 MG TAB PO SCH (09:54)
[2019-02-28] MEDS: METOPROLOL SUCC (TopROL XL) 50MG **XL** TAB PO SCH (09:54)
[2019-02-28] MEDS: ASPIRIN 81 MG ENTERIC TAB PO SCH (09:54)
[2019-02-28] MEDS: MAG SULF 1GM/100ML (MAG RUN) 1 GM in IV 1 EA IV SCH ×4 (09:55→15:09)
[2019-02-28 14:00] VITALS: BP 162/66
--- NOTE | 2019-02-28 14:31 | IPNPDOC ---
Date Seen The patient was seen on 02/28/19. Progress Note HISTORY OF PRESENT ILLNESS: 68-year-old female with past medical history of asthma, hypertension and hyperlipidemia presents with vomiting, abdominal pain or diarrhea for the past 3 days. She reports feeling well up until the symptoms started 3 days ago with vomiting and diarrhea along with right and left flank pain. She also reports associated fever, chills or night sweats. She has never had similar symptoms in the past, denies any sick contacts. In the ED she was found to have acute kidney injury along with bilateral hydronephrosis with obstructive uropathy. Urology was consulted by emergency department, plan for possible surgical intervention later today/tomorrow. Patient denies any chest pain, shortness of breath, headache or joint pain at this time. 02/26/2019 Patient without complaints, underwent bilateral ureteral stent placement by urology, renal function improving, good urine output, tolerating diet. 02/27/2019 Patient seen in the morning, comfortable in chair, reports improvement in abdominal/flank pain, tolerating diet, no other complaints at this time. 02/28/2019 Patient comfortable in chair, reports slight pain/discomfort with urination, likely related to trauma from pulling out Dupree, no other complaints. 10 point review of system is negative except for above HOME MEDICATIONS: Please see below. PHYSICAL EXAMINATION: VITAL SIGNS: Please see below. GENERAL: No distress HEENT: Normocephalic, atraumatic, moist mucous membranes NECK: Supple CARDIOVASCULAR EXAMINATION: S1, S2, no murmurs RESPIRATORY EXAMINATION: Diminished, Clear to auscultation, no wheezing ABDOMINAL EXAMINATION: Soft, nontender, nondistended, positive bowel sounds EXTREMITIES: Range of motion intact SKIN: No rash NEUROLOGICAL EXAMINATION: Alert and oriented 3, no focal deficits PSYCHIATRIC EXAMINATION: Calm and cooperative LABORATORY DATA: See below. IMAGING: CT abdomen and pelvis with bilateral hydronephrosis with obstructive uropathy MICROBIOLOGY: Please see below. ASSESSMENT: 68 year old female with past medical history of asthma, hypertension, hyperlipidemia, peak admitted for acute kidney injury secondary to bilateral obstructive uropathy and hydronephrosis. PLAN: 1. Acute kidney injury. Secondary to bilateral hydronephrosis due to obstructive uropathy, status post bilateral ureteral stent placement, renal function improving, discontinued IV fluids, good urine output, tolerating oral intake. UTI Ceftriaxone, cultures grew pansensitive Escherichia coli. 2. Hypertension. Continue home metoprolol 3. Hyperlipidemia. Continue home simvastatin 4. Asthma. Stable, continue home Singulair and albuterol when necessary DVT prophylaxis: Heparin subcutaneous GI prophylaxis: Protonix VS, I&O, 24H, Fishbone Vital Signs/I&O Vital Signs Date Time Temp Pulse Resp B/P (MAP) Pulse Ox O2 Delivery O2 Flow Rate FiO2 02/28/19 06:00 98.1 61 18 129/63 (85) 99 Room Air I&O- Last 24 Hours up to 6 AM 02/28/19 06:00 Intake Total 3450 ml Output Total 2725 ml Balance 725 ml Laboratory Data 24H LABS Laboratory Tests 2 02/28/19 05:15: Nucleated Red Blood Cells % (auto) 0.0, Anion Gap 3L, Glomerular Filtration Rate 19.4L, Calcium Level 8.7L, Phosphorus Level 2.9, Magnesium Level 1.6L, Total Bilirubin 0.2, Aspartate Amino Transf (AST/SGOT) 20, Alanine Aminotransferase (ALT/SGPT) 43, Alkaline Phosphatase 141H, Total Protein 5.9L, Albumin 2.1L, Albumin/Globulin Ratio 0.55L CBC/BMP Laboratory Tests 02/28/19 05:15 Microbiology Microbiology 02/25/19 Urine Culture - Final, Complete Escherichia Coli 02/25/19 Urine Culture - Final, Complete 02/25/19 Urine Culture - Final, Complete Escherichia Coli 02/25/19 Blood Culture - Preliminary, Resulted No Growth after 72 hours. All specime... 02/25/19 Blood Culture - Preliminary, Resulted No Growth after 72 hours. All specime... MRACO A LEON MD Feb 28, 2019 14:31
[2019-02-28] MEDS: cefTRIAXone SOD 1 GM in D5W MINI-BAG PLUS 50 ML IV SCH (16:24)
[2019-02-28] MEDS: traZODone 50 MG TAB PO SCH (21:07)
[2019-02-28] MEDS: SIMVASTATIN 40 MG TAB PO SCH (21:07)
[2019-02-28] MEDS: MONTELUKAST 10 MG TAB PO SCH (21:07)
[2019-02-28 22:00] VITALS: BP 115/64
[2019-03-01] MEDS: HEPARIN SOD (PORCINE) 5000 UNITS/ML VIAL SC SCH ×3 (05:51→20:44)
[2019-03-01 06:00] VITALS: BP 135/80
[2019-03-01 06:17] LABS: HEMATOCRIT 35.5 % (36.0-47.0); HEMOGLOBIN 10.6 g/dl (12.0-15.5); MEAN CORPUSCULAR HEMOGLOBIN 27.1 pg (27.0-33.0); MEAN CORPUSCULAR HGB CONC 29.9 g/dl (32.0-36.5); MEAN CORPUSCULAR VOLUME 90.8 fl (80.0-96.0); PLATELET COUNT, AUTOMATED 273 10^3/uL (150-450); RED BLOOD COUNT 3.91 10^6/uL (4.00-5.40); WHITE BLOOD COUNT 7.4 10^3/uL (4.0-10.0)
[2019-03-01 06:42] LABS: CALCIUM LEVEL 9.1 MG/DL (8.8-10.2); CREATININE FOR GFR 2.08 MG/DL (0.55-1.30); GLOMERULAR FILTRATION RATE 25.4 (>45); MAGNESIUM LEVEL 2.2 MG/DL (1.8-2.4); POTASSIUM SERUM 4.7 MEQ/L (3.5-5.1)
[2019-03-01] MEDS: FLUoxetine 20 MG CAP PO SCH (09:24)
[2019-03-01] MEDS: ASPIRIN 81 MG ENTERIC TAB PO SCH (09:24)
[2019-03-01] MEDS: PANTOPRAZOLE 40MG INJ (PROTONIX) (C9113) IV SCH (09:24)
[2019-03-01] MEDS: ASCORBIC ACID 250 MG TAB PO SCH (09:24)
[2019-03-01] MEDS: THEOPHYLLINE (THEO-24) 100MG SR **CAPSULE PO SCH ×2 (09:24→20:39)
[2019-03-01] MEDS: buPROPion (WELLBUTRIN SR) 100 MG SR TAB PO SCH ×2 (09:24→20:44)
[2019-03-01] MEDS: METOPROLOL SUCC (TopROL XL) 50MG **XL** TAB PO SCH (09:28)
[2019-03-01] MEDS: traMADol 50 MG TAB PO PRN ×2 (09:35→20:40)
--- NOTE | 2019-03-01 09:41 | IPNPDOC ---
Date Seen The patient was seen on 03/01/19. Progress Note HISTORY OF PRESENT ILLNESS: 68-year-old female with past medical history of asthma, hypertension and hyperlipidemia presents with vomiting, abdominal pain or diarrhea for the past 3 days. She reports feeling well up until the symptoms started 3 days ago with vomiting and diarrhea along with right and left flank pain. She also reports associated fever, chills or night sweats. She has never had similar symptoms in the past, denies any sick contacts. In the ED she was found to have acute kidney injury along with bilateral hydronephrosis with obstructive uropathy. Urology was consulted by emergency department, plan for possible surgical intervention later today/tomorrow. Patient denies any chest pain, shortness of breath, headache or joint pain at this time. 02/26/2019 Patient without complaints, underwent bilateral ureteral stent placement by urology, renal function improving, good urine output, tolerating diet. 02/27/2019 Patient seen in the morning, comfortable in chair, reports improvement in abdominal/flank pain, tolerating diet, no other complaints at this time. 02/28/2019 Patient comfortable in chair, reports slight pain/discomfort with urination, likely related to trauma from pulling out Dupree, no other complaints. 03/01/2019 Patient comfortable in chair, without any complains, reports that she has 12 stairs at her daughter's home and is not comfortable with her ability to perform that at this time. She was able to do 6 stairs with physical therapy yesterday, advised to continue working with physical therapy and ambulate with nursing/aide. 10 point review of system is negative except for above HOME MEDICATIONS: Please see below. PHYSICAL EXAMINATION: VITAL SIGNS: Please see below. GENERAL: No distress HEENT: Normocephalic, atraumatic, moist mucous membranes NECK: Supple CARDIOVASCULAR EXAMINATION: S1, S2, no murmurs RESPIRATORY EXAMINATION: Diminished, Clear to auscultation, no wheezing ABDOMINAL EXAMINATION: Soft, nontender, nondistended, positive bowel sounds EXTREMITIES: Range of motion intact SKIN: No rash NEUROLOGICAL EXAMINATION: Alert and oriented 3, no focal deficits PSYCHIATRIC EXAMINATION: Calm and cooperative LABORATORY DATA: See below. IMAGING: CT abdomen and pelvis with bilateral hydronephrosis with obstructive uropathy MICROBIOLOGY: Please see below. ASSESSMENT: 68 year old female with past medical history of asthma, hyp ertension, hyperlipidemia, peak admitted for acute kidney injury secondary to bilateral obstructive uropathy and hydronephrosis. PLAN: 1. Acute kidney injury. Secondary to bilateral hydronephrosis due to obstructive uropathy, status post bilateral ureteral stent placement, renal function improving, discontinued IV fluids, good urine output, tolerating oral intake. UTI Ceftriaxone, cultures grew pansensitive Escherichia coli. Plan for discharge tomorrow 2. Hypertension. Continue home metoprolol 3. Hyperlipidemia. Continue home simvastatin 4. Asthma. Stable, continue home Singulair and albuterol when necessary DVT prophylaxis: Heparin subcutaneous GI prophylaxis: Protonix VS, I&O, 24H, Fishbone Vital Signs/I&O Vital Signs Date Time Temp Pulse Resp B/P (MAP) Pulse Ox O2 Delivery O2 Flow Rate FiO2 03/01/19 09:35 18 03/01/19 09:28 63 154/57 03/01/19 06:00 97.3 94 Room Air I&O- Last 24 Hours up to 6 AM 03/01/19 06:00 Intake Total 1690 ml Output Total 2100 ml Balance -410 ml Laboratory Data 24H LABS Laboratory Tests 2 03/01/19 05:21: Nucleated Red Blood Cells % (auto) 0.0, Anion Gap 5L, Glomerular Filtration Rate 25.4L, Calcium Level 9.1, Phosphorus Level 3.0, Magnesium Level 2.2 CBC/BMP Laboratory Tests 03/01/19 05:21 Microbiology Microbiology 02/25/19 Urine Culture - Final, Complete Escherichia Coli 02/25/19 Urine Culture - Final, Complete 02/25/19 Urine Culture - Final, Complete Escherichia Coli 02/25/19 Blood Culture - Preliminary, Resulted No Growth after 72 hours. All specime... 02/25/19 Blood Culture - Preliminary, Resulted No Growth after 72 hours. All specime... MARCO A LEON MD Mar 01, 2019 09:41
[2019-03-01 14:00] VITALS: BP 130/80
[2019-03-01] MEDS: cefTRIAXone SOD 1 GM in D5W MINI-BAG PLUS 50 ML IV SCH (14:17)
[2019-03-01] MEDS: MONTELUKAST 10 MG TAB PO SCH (20:39)
[2019-03-01] MEDS: traZODone 50 MG TAB PO SCH (20:40)
[2019-03-01] MEDS: SIMVASTATIN 40 MG TAB PO SCH (20:40)
[2019-03-01 22:00] VITALS: BP 160/64
[2019-03-02 06:00] VITALS: BP 114/41
[2019-03-02 06:37] LABS: CALCIUM LEVEL 9.6 MG/DL (8.8-10.2); CREATININE FOR GFR 1.98 MG/DL (0.55-1.30); GLOMERULAR FILTRATION RATE 26.8 (>45); MAGNESIUM LEVEL 1.9 MG/DL (1.8-2.4); PHOSPHORUS LEVEL 3.5 MG/DL (2.5-4.9)
[2019-03-02] MEDS: HEPARIN SOD (PORCINE) 5000 UNITS/ML VIAL SC SCH (06:39)
[2019-03-02] MEDS: ASCORBIC ACID 250 MG TAB PO SCH (09:31)
[2019-03-02] MEDS: THEOPHYLLINE (THEO-24) 100MG SR **CAPSULE PO SCH (09:31)
[2019-03-02] MEDS: FLUoxetine 20 MG CAP PO SCH (09:31)
[2019-03-02] MEDS: PANTOPRAZOLE 40MG INJ (PROTONIX) (C9113) IV SCH (09:31)
[2019-03-02] MEDS: buPROPion (WELLBUTRIN SR) 100 MG SR TAB PO SCH (09:31)
[2019-03-02] MEDS: ASPIRIN 81 MG ENTERIC TAB PO SCH (09:31)
[2019-03-02 09:34] VITALS: BP 118/68
[2019-03-02] MEDS: METOPROLOL SUCC (TopROL XL) 50MG **XL** TAB PO SCH (09:34)
[2019-03-02] MEDS: traMADol 50 MG TAB PO PRN (09:46)
--- NOTE | 2019-03-02 10:02 | DS.PDOC ---
Discharge Summary General Date of Admission Feb 25, 2019 at 14:45 Date of Discharge 03/02/2019 Attending Physician: MARCO A LEON MD Discharge Summary PROCEDURES PERFORMED DURING STAY: None. ADMITTING DIAGNOSES: 1. Acute renal failure, obstructive uropathy. DISCHARGE DIAGNOSES: 1. Acute renal failure, obstructive uropathy, UTI. COMPLICATIONS/CHIEF COMPLAINT: Acute Renal Failure Hydronephrititis Uti. HISTORY OF PRESENT ILLNESS: 68-year-old female with past medical history hypertension, asthma and hyperlipidemia was admitted for acute kidney injury secondary to obstructive uropathy and UTI. Patient underwent bilateral stent placement by urology with subsequent improvement in renal function along with aggressive IV hydration and antibiotics. Patient has had daily improvement in renal function and urine output, has been off of IV fluids for over 48 hours with continued improvement of renal function, tolerating oral intake, treated with ceftriaxone for UTI. Patient currently without any complaints, clinic then he would be stable for discharge with outpatient follow-up with urology, nephrology and PCP. HOSPITAL COURSE: As above. DISCHARGE MEDICATIONS: Please see below. ALLERGIES: Please see below. PHYSICAL EXAMINATION: VITAL SIGNS: Please see below. GENERAL: No distress HEENT: Normocephalic, atraumatic, moist mucous membranes NECK: Supple CARDIOVASCULAR EXAMINATION: S1, S2, no murmurs RESPIRATORY EXAMINATION: Diminished, Clear to auscultation, no wheezing ABDOMINAL EXAMINATION: Soft, nontender, nondistended, positive bowel sounds EXTREMITIES: Range of motion intact SKIN: No rash NEUROLOGICAL EXAMINATION: Alert and oriented 3, no focal deficits PSYCHIATRIC EXAMINATION: Calm and cooperative LABORATORY DATA: Please see below. IMAGING: Bilateral hydronephrosis with obstructive uropathy PROGNOSIS: Fair ACTIVITY: As tolerated. DIET: Cardiac DISCHARGE PLAN: Patient will follow up with urology, nephrology and PCP in 1-2 weeks DISPOSITION: Home. DISCHARGE INSTRUCTIONS: 1. As above. DISCHARGE CONDITION: Stable. TIME SPENT ON DISCHARGE: Greater than 34 minutes. Vital Signs/I&Os Vital Signs Date Time Temp Pulse Resp B/P (MAP) Pulse Ox O2 Delivery O2 Flow Rate FiO2 03/02/19 09:46 18 03/02/19 09:34 64 118/68 03/02/19 06:00 98.0 96 Room Air I&O- Last 24 Hours up to 6 AM 03/02/19 06:00 Intake Total 2380 ml Output Total 3600 ml Balance -1220 ml Laboratory Data Labs 24H Laboratory Tests 2 03/02/19 06:01: Anion Gap 4L, Glomerular Filtration Rate 26.8L, Calcium Level 9.6, Phosphorus Level 3.5, Magnesium Level 1.9 CBC/BMP Laboratory Tests 03/02/19 06:01 Microbiology Microbiology 02/25/19 Urine Culture - Final, Complete Escherichia Coli 02/25/19 Urine Culture - Final, Complete 02/25/19 Urine Culture - Final, Complete Escherichia Coli 02/25/19 Blood Culture - Preliminary, Resulted No Growth after 72 hours. All specime... 02/25/19 Blood Culture - Preliminary, Resulted No Growth after 72 hours. All specime... Discharge Medications Scheduled Ascorbic Acid (Vitamin C) 250 Mg Tab, 250 MG PO DAILY, (Reported) Aspirin (Aspir 81) 81 Mg Tablet.dr, 81 MG PO DAILY, (Reported) Bupropion HCl (Bupropion HCl Sr) 100 Mg Tab.sr.12h, 100 MG PO BID, (Reported) Fluoxetine Hcl (Fluoxetine HCl) 40 Mg Capsule, 80 MG PO DAILY, (Reported) Metoprolol Succinate (Metoprolol Succinate) 50 Mg Tab, 50 MG PO DAILY, (Reported) Mirabegron (Myrbetriq) 25 Mg Tab.er.24h, 25 MG PO DAILY, (Reported) Montelukast Sodium (Montelukast Sodium) 10 Mg Tab, 10 MG PO QHS, (Reported) Multivitamin (Multivitamins) 1 Cap Cap, 1 CAP PO DAILY, (Reported) Simvastatin (Simvastatin) 40 Mg Tab, 40 MG PO QHS, (Reported) Theophylline Anhydrous (Elías-24) 300 Mg Cap, 300 MG PO BID, (Reported) Trazodone HCl (Trazodone HCl) 100 Mg Tab, 50 MG PO QPM, (Reported) Scheduled PRN Albuterol Sulfate (Albuterol Sulfate) 2.5 Mg/0.5 Ml Vial.neb, 2.5 MG INH Q4H PRN for SOB/WHEEZING, (Reported) Albuterol Sulfate (Ventolin Hfa) 18 Gm Hfa.aer.ad, 2 PUFF INH Q4-6HP PRN for wheezing, (Reported) Clonazepam (Clonazepam) 0.5 Mg Tab, 0.5 MG PO BID PRN for anxiety, (Reported) Tramadol HCl (Tramadol HCl) 50 Mg Tab, 50 MG PO TID PRN for pain, (Reported) Umeclidinium Brm/Vilanterol Tr (Anoro Ellipta 62.5-25 Mcg INH) 1 Each Blst.w.dev, 1 PUFF INH DAILY PRN for SHORTNESS OF BREATH, (Reported) Allergies Coded Allergies: No Known Drug Allergies (Verified Allergy, Unknown, 02/25/19) MARCO A LEON MD Mar 02, 2019 10:02
--- NOTE | 2019-03-05 15:09 | RO ---
DATE OF PROCEDURE: 02/25/2019 PREOPERATIVE DIAGNOSIS: Bilateral ureteral stones associated with obstruction. POSTOPERATIVE DIAGNOSIS: Bilateral ureteral stones associated with obstruction. PROCEDURE DONE: Cystoscopy with bilateral retrograde pyelograms and bilateral ureteral stent placement, #7-Tajik placed stent bilaterally. SURGEON: Norbert Bojorquez MD BUS INSPECTOR: ANESTHESIA: Monitored anesthesia care (MAC). COMPLICATIONS: None. FINDINGS: Right system with cloudy urine, significant obstruction. INDICATIONS FOR PROCEDURE: Patient is a 68-year-old female who had history for several days of diarrhea, nausea and vomiting, poor food intake with some fluid intake. Having gotten better last night, this morning though has fever, chills, and abdominal discomfort, she was brought to the emergency room. Received a CT scan, noted to have bilateral ureteral stones, right side 1.1 cm at the ureteropelvic junction (UPJ). On the left side, a distal 9 mm stone. Patient was admitted, evaluated by me. Treatment options were discussed with the patient. Opted for a bilateral ureteral stent placement. DESCRIPTION OF PROCEDURE: Patient was identified. Self consent forms were signed after she fully understood the risks and benefits of the procedure. Patient was brought into the operating room. Prior to giving anesthesia, she went though the phase one check. Patient was given anesthesia, then she went through a second phase check, identified as self, and discussed the procedure. The patient was then placed in lithotomy position, Dupree catheter was removed and properly washed off. Rigid cystoscope, #21-Tajik, was placed through the urethra. Bladder was inspected, all four quadrants, and there were no abnormalities noted. Bilateral ureteral orifices were identified. . A wire was used to cannulate the left side collecting system first. Wire could not pass beyond the distal ureter. Pollack catheter was placed. Contrast was injected. Obstructed system was noted at the distal ureter as the ureter entered into the bladder. Wire was used to navigate around the stone. Pollack catheter was then placed over the flex tip wire and contrast was sent. Retrograde pyelogram was obtained. Wire was placed back in with the tip in the kidney. Pollack catheter was removed. #7-Tajik ureteral stent was placed over wire under direct vision, coiled into the renal collecting system on the left side, fluoroscopy guidance. Wire was then removed. Stent was noted to have coiled in the bladder and in the kidney and was draining. We then drained the bladder and then turned to the right side. Procedure was repeated. Wire was placed, flex tip wire into the kidney. Pollack catheter was placed over the wire. Wire was removed. Contrast was injected. When the wire was replaced, copious amount of cloudy urine came out. Pollack catheter was placed in quick. Contrast was placed in the system to evaluate the system and also to note where the renal pelvis was to ensure that the stent was in the renal pelvis. Wire was placed through the Pollack catheter. Catheter was removed. #7-Tajik ureteral catheter was placed over the wire after being placed in mineral oil. Under direct vision, fluoroscopic guidance, and cystoscopic guidance, the #7-Tajik ureteral catheter was placed and coiled into the kidney. The wire was removed. Ureteral stent noted to have coiled in the collecting system and in the bladder. It was draining a great deal of urine, copious cloudy urine. Bilaterally when the Pollack catheter was replaced in the renal pelvis, urine samples were obtained and sent to the lab. Several pictures using fluoroscopy were obtained. Final film was obtained. Bladder was irrigated a few times with the cystoscope. A #16-Tajik Dupree catheter was placed in the urethra to drain it. 10 mL was placed in the balloon and was placed to the gravity bag. Patient was awakened from anesthesia, properly washed off, taken out of lithotomy position, placed in the supine position, placed back on a hospital bed after she was awake, and then taken to recovery room without complication. KERRY
== END 2019-03-02 11:07 | disposition home or self-care (01) | DRG 661 ==
LOC: EDBD 10:28 → M ED 10:28 → M ED INP 14:45 → M MSPAV 16:55
PROVIDERS: ADMIT Internal Medicine; ATTEND Internal Medicine
PROC: 0T788DZ Dilation of Bilateral Ureters with Intraluminal Device, Via Natural or Artificial Opening Endoscopic (ICD-10-PCS; principal; 2019-02-25 16:00)
DX: N13.1 Hydronephrosis with ureteral stricture, not elsewhere classified (principal); N17.9 Acute kidney failure, unspecified; N39.0 Urinary tract infection, site not specified; I10 Essential (primary) hypertension; J45.909 Unspecified asthma, uncomplicated; E78.5 Hyperlipidemia, unspecified; Z79.899 Other long term (current) drug therapy; Z79.82 Long term (current) use of aspirin

== ENCOUNTER → 2019-03-16 | Outpatient (REF) | payer MEDICARE, MEDICAID ==
[~2019-03-16] MED LIST changes: +ALB2.5NEB INH; +ANOR1AER INH; +ASPI81TA85 PO; +BUPR1TAB52 PO; +FLUO40CA PO; +MYRB25TA PO; -TRAZ-163 PO; +TRAZ-257 PO; +VENTAER INH
[2019-03-17 17:49] LABS: APPEARANCE, URINE CLOUDY (CLEAR); BACTERIA, URINE AUTO 2+ (NEGATIVE); BILIRUBIN, URINE AUTO NEGATIVE (NEGATIVE); BLOOD, URINE BLOOD 2+ (NEGATIVE); COLOR, URINE YELLOW (YELLOW); GLUCOSE, URINE (UA) AUTO NEGATIVE (NEGATIVE); KETONE, URINE AUTO NEGATIVE (NEGATIVE); LEUKOCYTE ESTERASE, URINE AUTO 3+ (NEGATIVE); NITRITE, URINE AUTO POSITIVE (NEGATIVE); PROTEIN, URINE AUTO 1+ mg/dL (NEGATIVE); RBC, URINE AUTO 16 /HPF (0-3); SPECIFIC GRAVITY URINE AUTO 1.008 (1.002-1.035); SQUAMOUS EPITHELIAL CELL UR AU 1 /HPF (0-6); TRANSITIONAL EPITHELIAL AUTO <1 /HPF; UROBILINOGEN, URINE AUTO 0.2 mg/dL (0.0-2.0); WBC, URINE AUTO TNTC /HPF (0-3)
== END ==
LOC: M SFHCADAM 15:51
PROVIDERS: ATTEND Nurse Practitioner Family
DX: N20.0 Calculus of kidney (principal)

== ENCOUNTER → 2019-04-06 | Outpatient (REF) | payer MEDICARE, MEDICAID ==
[~2019-04-06] MED LIST changes: +TRAZ-163 PO; -TRAZ-257 PO
[2019-04-06 19:36] LABS: CALCIUM LEVEL 9.4 MG/DL (8.8-10.2); CREATININE FOR GFR 1.63 MG/DL (0.55-1.30); GLOMERULAR FILTRATION RATE 33.6 (>45); POTASSIUM SERUM 4.1 MEQ/L (3.5-5.1)
[2019-04-06 19:46] LABS: HEMATOCRIT 45.8 % (36.0-47.0); HEMOGLOBIN 13.1 g/dl (12.0-15.5); MEAN CORPUSCULAR HEMOGLOBIN 27.1 pg (27.0-33.0); MEAN CORPUSCULAR HGB CONC 28.6 g/dl (32.0-36.5); MEAN CORPUSCULAR VOLUME 94.8 fl (80.0-96.0); PLATELET COUNT, AUTOMATED 242 10^3/uL (150-450); RED BLOOD COUNT 4.83 10^6/uL (4.00-5.40)
[2019-04-06 19:51] LABS: APPEARANCE, URINE HAZY (CLEAR); BACTERIA, URINE AUTO NEGATIVE (NEGATIVE); BILIRUBIN, URINE AUTO NEGATIVE (NEGATIVE); BLOOD, URINE BLOOD 2+ (NEGATIVE); COLOR, URINE YELLOW (YELLOW); GLUCOSE, URINE (UA) AUTO NEGATIVE (NEGATIVE); KETONE, URINE AUTO NEGATIVE (NEGATIVE); LEUKOCYTE ESTERASE, URINE AUTO 3+ (NEGATIVE); MUCUS, URINE SMALL (NEGATIVE); NITRITE, URINE AUTO NEGATIVE (NEGATIVE); PROTEIN, URINE AUTO 1+ mg/dL (NEGATIVE); RBC, URINE AUTO 21 /HPF (0-3); SPECIFIC GRAVITY URINE AUTO 1.011 (1.002-1.035); SQUAMOUS EPITHELIAL CELL UR AU 1 /HPF (0-6); UROBILINOGEN, URINE AUTO 0.2 mg/dL (0.0-2.0); WBC, URINE AUTO 58 /HPF (0-3)
[2019-04-06 19:56] LABS: INR 0.99; PROTHROMBIN TIME 12.8 SECONDS (11.8-14.0)
[2019-04-06 19:57] LABS: PARTIAL THROMBOPLASTIN TIME 25.6 SECONDS (25.0-38.4)
== END ==
LOC: M LABSMT 13:29
PROVIDERS: ATTEND Nurse Practitioner Family
DX: Z01.818 Encounter for other preprocedural examination (principal); N20.0 Calculus of kidney

== ENCOUNTER → 2019-04-12 | Outpatient (REF) | payer MEDICARE, MEDICAID | LOC: M LAB REF 14:19 | PROVIDERS: ATTEND Internal Medicine | DX: N13.2 Hydronephrosis with renal and ureteral calculous obstruction (principal); I82.402 Acute embolism and thrombosis of unspecified deep veins of left lower extremity ==

== ENCOUNTER 2019-04-27 10:04 | Day surgery (SDC) | payer MEDICAID, MEDICARE ==
[~2019-04-27] VITALS: Ht 162.6 cm; Wt 121.0 kg
[~2019-04-27 10:04] MED LIST changes: +LR 1,000 ML IV ONE; +LevoFLOXacin IV 500 MG in IV 1 EA IV ONE; -TRAZ-163 PO; +TRAZ-257 PO
[2019-04-27] MEDS ORDERED: propofoL 200 MG/20 ML VIAL As Ordered ONE (10:41)
[2019-04-27] MEDS ORDERED: ACETAMINOPHEN 1000MG 100ML IV BTL (OFIRMEV) (J0131 PER 10MG) As Ordered ONE (10:41)
[2019-04-27] MEDS ORDERED: ONDANSETRON 4MG/2ML VIAL (J2405) As Ordered ONE (10:41)
[2019-04-27] MEDS ORDERED: fentaNYL 100 MCG/2 ML INJECTION (J3010) As Ordered ONE ×2 (10:41→13:19)
[2019-04-27] MEDS ORDERED: dexameTHASONE 4 MG/ML 1ML VIAL (J1100) As Ordered ONE (10:41)
[2019-04-27] MEDS ORDERED: MIDAZOLAM INJ 2 MG/2 ML VIAL (J2250) As Ordered ONE (10:41)
[2019-04-27] MEDS ORDERED: LIDOCAINE 2% INJ 100 MG/5 ML SDV (FOR ANES.) As Ordered ONE (10:47)
[2019-04-27] MEDS ORDERED: CONRAY-60 60% 50ML VIAL (Q9961) As Ordered ONE (11:25)
[2019-04-27] MEDS ORDERED: ePHEDrine SULFATE 25 MG/5 ML(5MG/ML) SYRINGE As Ordered ONE (11:55)
[2019-04-27] MEDS ORDERED: GLYCOPYRROLATE INJ 0.2 MG/ML 2 ML VIAL As Ordered ONE (11:55)
[2019-04-27] MEDS ORDERED: SUGAMMADEX SODIUM 500 MG/5 ML VIAL (BRIDION) As Ordered ONE (12:12)
[2019-04-27] MEDS ORDERED: ROCURONIUM BROMIDE 50 MG/5 ML VIAL As Ordered ONE (12:13)
[2019-04-27] MEDS ORDERED: oxyCODONE 5MG TAB As Ordered ONE (13:19)
[2019-04-27] MEDS: fentaNYL 100 MCG/2 ML INJECTION (J3010) IV PRN ×2 (13:20→13:35)
--- NOTE | 2019-04-27 13:23 | REP ---
Retrograde pyelogram: A series of three intraoperative fluoroscopic views are performed during the bilateral ureteral stent placement: The final film demonstrates the proximal and distal stent pigtails to be in satisfactory locations. Fluoroscopic exposure time is 27 seconds. Electronically Signed by Cristopher Bailey MD 04/27/2019 01:15 P
[2019-04-27] MEDS ORDERED: PERCOCET 5MG/325MG TAB PO PRN ×2 (13:45→17:45)
[2019-04-27] MEDS ORDERED: LR 1,000 ML IV SCH (13:45)
[2019-04-27] MEDS ORDERED: oxyCODONE 5MG TAB PO PRN (13:45)
[2019-04-27] MEDS ORDERED: ONDANSETRON 4MG/2ML VIAL (J2405) IV PRN ×2 (13:45→15:45)
[2019-04-27] MEDS ORDERED: ACETAMINOPHEN TAB 650MG DOSE (2X325MG) PO PRN (15:45)
[2019-04-27] MEDS ORDERED: clonazePAM 0.5 MG TAB PO PRN (15:45)
[2019-04-27] MEDS ORDERED: ALBUTEROL 90 MCG/ACT 8GM HFA INHALER INH PRN (15:45)
[2019-04-27] MEDS ORDERED: ALBUTEROL SULFATE 2.5 MG/0.5 ML INH NEB SOLN NEB PRN (15:45)
[2019-04-27 17:00] VITALS: BP 133/65
[2019-04-27] MEDS ORDERED: SIMVASTATIN 40 MG TAB PO SCH (21:00)
[2019-04-27] MEDS ORDERED: traZODone 50 MG TAB PO SCH (21:00)
[2019-04-27] MEDS ORDERED: MONTELUKAST 10 MG TAB PO SCH (21:00)
[2019-04-27] MEDS: THEOPHYLLINE (THEO-24) 100MG SR **CAPSULE PO SCH (21:29)
[2019-04-27] MEDS: buPROPion (WELLBUTRIN SR) 100 MG SR TAB PO SCH (21:29)
[2019-04-27 22:00] VITALS: BP 132/57
[2019-04-28 02:00] VITALS: BP 138/60
[2019-04-28 06:00] VITALS: BP 115/53
[2019-04-28 08:33] VITALS: BP 127/59
[2019-04-28] MEDS: buPROPion (WELLBUTRIN SR) 100 MG SR TAB PO SCH (08:33)
[2019-04-28] MEDS: THEOPHYLLINE (THEO-24) 100MG SR **CAPSULE PO SCH (08:34)
[2019-04-28] MEDS ORDERED: ASPIRIN 81 MG ENTERIC TAB PO SCH (09:00)
[2019-04-28] MEDS ORDERED: FLUoxetine 20 MG CAP PO SCH (09:00)
[2019-04-28] MEDS ORDERED: METOPROLOL SUCC (TopROL XL) 50MG **XL** TAB PO SCH (09:00)
[2019-04-28 10:00] VITALS: BP 134/96
--- NOTE | 2019-04-28 10:45 | IPNPDOC ---
Subjective Review oF Systems Chief Complaint The patient is a 68-year-old female admitted with a reason for visit of Nephrolithiasis. Events since Last Encounter No acute events o/n. Patient has mild discomfort from the stents. No SOB or chest pain. No n/v. No f/c/ns. Objective Physical Examination General Exam: Alert, Cooperative ABDOMEN EXAM: Soft; No: Tenderness Neuro Exam: Normal Speech Psych Exam: Mental status NL, Mood NL Vital Signs/I&O Vital Signs Date Time Temp Pulse Resp B/P (MAP) Pulse Ox O2 Delivery O2 Flow Rate FiO2 04/28/19 08:33 60 127/59 04/28/19 06:00 98.2 18 96 Nasal Cannula 1.0 I&O- Last 24 Hours up to 6 AM 04/28/19 05:59 Intake Total 1830 ml Output Total 400 ml Balance 1430 ml Assessment/Plan Date Seen The patient was seen on 04/28/19. Patient Summary This is a 68 y/o F POD1 s/p cysto, b/l ureteroscopy w/ laser lithotripsy and basket extraction of stones, and b/l ureteral stent exchange, kept o/n for MARLENE monitoring. She is doing well. No SOB off of O2 this morning. Plan/VTE VTE Prophylaxis Ordered?: Yes VTE Exclusion Mechanical Proph: N/A:VTE Prophy Ordered Plan - cont home meds - SCDs when in bed - ambulate - regular diet - discharge home today LUCILA HENAO MD Apr 28, 2019 10:45
--- NOTE | 2019-04-28 11:07 | RO ---
DATE OF PROCEDURE: 04/27/2019 PREPROCEDURE DIAGNOSIS: Bilateral kidney and ureteral stones. POSTPROCEDURE DIAGNOSIS: Bilateral kidney and ureteral stones. PROCEDURE: Cystoscopy, bilateral ureteroscopy with laser lithotripsy and basket extraction of stones, bilateral retrograde pyelograms with intraoperative interpreted images, bilateral ureteral stent exchange. SURGEON: Dr. Ruddy Mccullough. [employer]TER: None. ANESTHESIA: General. OPERATIVE INDICATIONS: This is a 68-year-old female who was found to have bilateral obstructing stones with an approximately 8 mm stone in the distal ureter on the left and an approximately 1 cm stone in the proximal ureter on the right. This was found a little over a month ago and she also had a urinary tract infection at the time. She had bilateral ureteral stents placed and is brought back to the operating room today for definitive management of her stones. DESCRIPTION OF PROCEDURE: The patient was brought to the operating room and general anesthesia was induced. Culture specific antibiotics were infused. She was then placed in the dorsal lithotomy position and prepped and draped in the usual sterile fashion. A rigid cystoscope was inserted through the urethral meatus and advanced to the bladder. The previously placed stents were seen. The left ureteral stent was grasped and withdrawn to the distal end of the urethral meatus. I then advanced a guidewire up the stent on the left side and did remove the stent intact. I then went up the left collecting system with a short semirigid ureteroscope and within the distal ureter an 8 mm stone was found to be impacted. There was a lot of tissue around the stone. I was able to loosen the stone and then fragment the stone into smaller pieces with a 200 micron laser fiber. All the fragments were then removed using a basket. I examined the proximal ureter and no additional stones were seen. A retrograde pyelogram was performed and was notable for moderate left hydroureteronephrosis with no extravasation. I then removed the ureteroscope and utilized the wire to advance a 6-Chadian x 22-32 cm JJ ureteral stent into the left collecting system. The wire was removed and there was adequate curl of the stent in the left renal pelvis and in the bladder. At this point, I grasp the right ureteral stent and withdrew it until the distal end was retrieved in the urethral meatus. I advanced a guidewire up the stent on the right side. The stent was then removed intact. I then advanced the ureteral access sheath up the right collecting system. I went up the access sheath with the proximal ureteroscope and within a lower pole jayesh a 1 cm stone was seen. The stone was fragmented into smaller pieces using a laser then all the fragments were removed using a basket. Once done, only very tiny stone fragments remained. A retrograde pyelogram was then performed and notable for mild hydronephrosis and no extravasation. I then removed the ureteroscope and went up the access sheath and no distal stones were seen within the ureter. I then utilized the wire to advanced a 6-Chadian x 22-32 cm JJ ureteral stent into the right collecting system. The wire was removed and there were adequate curls of the stent in the right renal pelvis and in the bladder. The bladder was emptied of all fluids. This marked the conclusion of the procedure. T he patient was taken out of dorsal lithotomy position, awakened from anesthesia and transported to the recovery room in stable condition. ESTIMATED BLOOD LOSS: 5 mL. COMPLICATIONS: None. SPECIMENS: Kidney stone fragments. PLAN: I will leave the patient's stents in for approximately 3-4 weeks specifically given the amount of tissue edema in the left ureter. She will then be brought to the office for stent removal. KERRY
== END 2019-04-28 13:28 | disposition home or self-care (01) ==
LOC: M SDC 10:04 → M MSPAV 16:55 → M SDC 04-28 13:28
PROVIDERS: ATTEND Urology
DX: N20.2 Calculus of kidney with calculus of ureter (principal); I10 Essential (primary) hypertension; E78.5 Hyperlipidemia, unspecified; K21.9 Gastro-esophageal reflux disease without esophagitis; F32.9 Major depressive disorder, single episode, unspecified; F41.9 Anxiety disorder, unspecified; J45.909 Unspecified asthma, uncomplicated; G47.30 Sleep apnea, unspecified; Z79.899 Other long term (current) drug therapy
CPT/HCPCS: 52356; 74420; 82360; 88300; C1769; C2617; J0131; J1100; J1956; J2250; J2405; J3010; Q9961

== ENCOUNTER → 2019-06-04 | Outpatient (REF) | payer MEDICARE ==
[~2019-06-04] MED LIST changes: -LR 1,000 ML IV ONE; -LevoFLOXacin IV 500 MG in IV 1 EA IV ONE; -MONT10TA2 PO; +MONT10TA4 PO
== END ==
LOC: M LAB REF 16:20
PROVIDERS: ATTEND Nurse Practitioner Adult Health
DX: N13.2 Hydronephrosis with renal and ureteral calculous obstruction (principal)

== ENCOUNTER 2020-05-31 18:38 | Emergency (ER) | payer MEDICARE ==
[~2020-05-31] VITALS: Ht 160 cm; Wt 127.3 kg
[~2020-05-31 18:38] MED LIST changes: -ASPI81TA85 PO; +ASPI81TA86 PO; +MONT10TA10 PO; -MONT10TA4 PO; -VITA1TAB23 PO; +VITA250T20 PO
[2020-05-31] MEDS ORDERED: FAMOTIDINE 20 MG TAB PO ONE (19:30)
[2020-05-31] MEDS ORDERED: CYCLOBENZAPRINE 5MG TABLET PO ONE (19:30)
[2020-05-31] MEDS ORDERED: IBUPROFEN 800 MG TAB PO ONE (19:30)
[2020-05-31] MEDS ORDERED: ACETAMINOPHEN TAB 650MG DOSE (2X325MG) PO ONE (19:30)
--- NOTE | 2020-05-31 20:07 | REPVR ---
PROCEDURE INFORMATION: Exam: CT Head Without Contrast Exam date and time: 05/31/2020 7:38 PM Age: 69 years old Clinical indication: Injury or trauma; Fall; Blunt trauma (contusions or hematomas); Additional info: Fall + head trauma TECHNIQUE: Imaging protocol: Computed tomography of the head without contrast. Radiation optimization: All CT scans at this facility use at least one of these dose optimization techniques: automated exposure control; mA and/or kV adjustment per patient size (includes targeted exams where dose is matched to clinical indication); or iterative reconstruction. COMPARISON: CT Head without contrast 10/07/2017 2:26 PM FINDINGS: Brain: There is no CT evidence for an acute large vessel territorial infarct. No acute intracranial hemorrhage is seen. No mass, mass effect, midline shift, or herniation is noted. The cortical gyration pattern, basal ganglia, thalami, brainstem, and cerebellum are normal in appearance. Cerebral ventricles: Normal. No hydrocephalus. Bones/joints: The skull is intact. No suspicious osteolytic or osteoblastic lesion. Incidental note is made of hyperostosis frontalis interna, which is symmetric thickening of the inner table of the frontal bone, which is similar in appearance compared to the prior CT head on 10/07/2017. Paranasal sinuses: The imaged portions of the sinuses are well-aerated. No air-fluid levels are noted in the sinuses. Mastoid air cells: Clear. Clear. Vasculature: There are atherosclerotic calcifications of the intracranial portion of the vertebral arteries and internal carotid arteries. Soft tissues: Unremarkable. IMPRESSION: Intact skull. No acute intracranial hemorrhage or acute intracranial abnormality. Electronically signed by: Zeferino Hernandez On 05/31/2020 20:07:55 PM
--- NOTE | 2020-05-31 20:31 | REPVR ---
PROCEDURE INFORMATION: Exam: XR Left Ribs with PA Chest Exam date and time: 05/31/2020 8:06 PM Age: 69 years old Clinical indication: Injury or trauma; Fall; Rib area, left side; Sprain or strain; Additional info: S/P fall TECHNIQUE: Imaging protocol: XR Left ribs with PA chest. Views: 3 views COMPARISON: 1. CR Chest, 1 view 02/25/2019 1:[address] ANGIO CHEST 03/25/2014 8:03:20 PM FINDINGS: Lungs: Unremarkable. No consolidation. No pulmonary edema. Pleural spaces: Unremarkable. No pleural effusion. No pneumothorax. Heart/Mediastinum: Unremarkable. No cardiomegaly. Vasculature: There are atherosclerotic calcifications of the aorta. Bones/joints: There is no fracture or dislocation of the left ribs. There is ymbm-rp-smdstwfb osteoarthritis of the left acromioclavicular joint. Other findings: There are surgical clips projecting over the right upper quadrant and left side of the abdomen. IMPRESSION: 1. No fracture or dislocation of the left ribs. 2. No radiographic evidence for an acute cardiopulmonary process. Electronically signed by: Zeferino Hernandez On 05/31/2020 20:31:49 PM
--- NOTE | 2020-05-31 20:31 | REPVR ---
PROCEDURE INFORMATION: Exam: XR Left Shoulder Exam date and time: 05/31/2020 8:06 PM Age: 69 years old Clinical indication: Injury or trauma; Fall; Sprain or strain; Arm, upper; Left; Additional info: S/P fall TECHNIQUE: Imaging protocol: XR Left shoulder. Views: 2 or more views. COMPARISON: No relevant prior studies available. FINDINGS: Bones/joints: There is no fracture or dislocation of the left shoulder. The left glenohumeral alignment is maintained. There is [id number]-[id number] osteoarthritis of the left acromioclavicular joint. No widening of the left acromioclavicular joint space or left coracoclavicular space is noted to suggest a left acromioclavicular separation injury. Soft tissues: Unremarkable. No calcific densities are seen in the rotator cuff or subacromial subdeltoid bursa to suggest calcific tendinitis or calcific subacromial subdeltoid bursitis. IMPRESSION: 1. No fracture or dislocation of the left shoulder. 2. Ecfh-qv-[id number] osteoarthritis of the left acromioclavicular joint. Electronically signed by: Zeferino Hernandez On 05/31/2020 20:31:42 PM
--- NOTE | 2020-05-31 20:34 | REPVR ---
PROCEDURE INFORMATION: Exam: XR Left Hip with Pelvis when Performed Exam date and time: 05/31/2020 8:06 PM Age: 69 years old Clinical indication: Injury or trauma; Fall; Sprain or strain; Left; Hip; Additional info: S/P fall TECHNIQUE: Imaging protocol: XR Left hip with pelvis when performed. Views: 2 or 3 views. COMPARISON: CT ABD PELVIS W/O CONTRAST 02/25/2019 1:08 PM FINDINGS: Bones/joints: There is no fracture or dislocation of the bony pelvis or left hip. There is mild osteoarthritis of both hip joints. There are degenerative changes of the lower lumbar spine and both sacroiliac joints. Soft tissues: Unremarkable. Intraperitoneal space: There is a surgical clip in the left lower quadrant of the abdomen. IMPRESSION: No fracture or dislocation of the bony pelvis or left hip. Electronically signed by: Zeferino Hernandez On 05/31/2020 20:35:03 PM
[2020-05-31] MEDS ORDERED: CYCL5TAB PO (22:11)
[2020-05-31] MEDS ORDERED: TYLE650T38 PO (22:11)
[2020-05-31] MEDS ORDERED: CEPH500T PO (22:23)
[2020-05-31 22:25] VITALS: BP 142/92
== END 2020-05-31 22:32 | disposition home or self-care (01) ==
LOC: M ED 18:38
DX: S43.402A Unspecified sprain of left shoulder joint, initial encounter (principal); S09.90XA Unspecified injury of head, initial encounter; S20.212A Contusion of left front wall of thorax, initial encounter; M25.552 Pain in left hip; W07.XXXA Fall from chair, initial encounter; Y92.019 Unspecified place in single-family (private) house as the place of occurrence of the external cause; Y93.9 Activity, unspecified; Y99.9 Unspecified external cause status; M19.012 Primary osteoarthritis, left shoulder; N39.0 Urinary tract infection, site not specified; I10 Essential (primary) hypertension; Z79.899 Other long term (current) drug therapy

== ENCOUNTER → 2020-06-09 | Outpatient (REF) | payer MEDICARE ==
[~2020-06-09] MED LIST changes: +CEPH500T PO; +CYCL5TAB PO; +TYLE650T38 PO
== END ==
LOC: M LAB REF 13:18
PROVIDERS: ATTEND Nurse Practitioner Adult Health
DX: J45.20 Mild intermittent asthma, uncomplicated (principal)

== ENCOUNTER → 2021-02-17 | Outpatient (REF) | payer MEDICARE ==
[~2021-02-17] MED LIST changes: +ACET650T15 PO; +BAYE81TA10 PO; +FLUO20CA20 PO; +FLUO20CA22 PO; +GLIM2TAB4 PO; +ROSU20TA5 PO; +VITMTA PO
== END ==
LOC: M LAB REF 16:25
PROVIDERS: ATTEND Nurse Practitioner Adult Health
DX: N39.46 Mixed incontinence (principal)

== ENCOUNTER 2021-02-24 17:21 | Inpatient (IN) | payer MEDICARE ==
[~2021-02-24] VITALS: Ht 160 cm; Wt 138.0 kg
[~2021-02-24 17:21] MED LIST changes: -ACET650T15 PO; -BAYE81TA10 PO; -CITA40TA4 PO; +CITA40TA7 PO; -FLUO20CA20 PO; -FLUO20CA22 PO; -GLIM2TAB4 PO; -MONT10TA10 PO; +MONT10TA97 PO; -ROSU20TA5 PO; -VITMTA PO
[2021-02-24] MEDS ORDERED: CHARCOAL ACTIVATED LIQUID 25 GM/120 ML BTL PO ONE (17:40)
[2021-02-24] MEDS ORDERED: LABETALOL 100MG/20ML VIAL IV STA (17:49)
[2021-02-24] MEDS ORDERED: METOPROLOL TART 25 MG TABLET PO ONE (17:50)
[2021-02-24 17:59] LABS: BASO # 0.1 10^3/uL (0.0-0.2); BASO % 0.9 % (0.0-1.0); EOS # 0.3 10^3/uL (0.0-0.5); EOS % 4.9 % (0.0-3.0); HEMATOCRIT 49.6 % (36.0-47.0); HEMOGLOBIN 14.7 g/dl (12.0-15.5); LYMPH # 1.7 10^3/uL (1.5-5.0); LYMPH % 26.1 % (24.0-44.0); MEAN CORPUSCULAR HGB CONC 29.6 g/dl (32.0-36.5); MONO # 0.5 10^3/uL (0.0-0.8); MONO % 7.5 % (2.0-8.0); NEUTROPHILS % 60.4 % (36.0-66.0); PLATELET COUNT, AUTOMATED 219 10^3/uL (150-450); RED BLOOD COUNT 5.45 10^6/uL (4.00-5.40); WHITE BLOOD COUNT 6.6 10^3/uL (4.0-10.0)
[2021-02-24] MEDS ORDERED: ROSU20TA5 PO ×2 (18:06→19:27)
[2021-02-24] MEDS ORDERED: FLUO20CA22 PO (18:06)
[2021-02-24 18:29] LABS: ACETAMINOPHEN LEVEL < 2.0 UG/ML (10.0-30.0); ALBUMIN 3.5 GM/DL (3.2-5.2); ALT/SGPT 70 U/L (12-78); BILIRUBIN,DIRECT < 0.1 MG/DL (0.0-0.2); BILIRUBIN,TOTAL 0.4 MG/DL (0.2-1.0); BLOOD UREA NITROGEN 24 MG/DL (7-18); CALCIUM LEVEL 10.1 MG/DL (8.8-10.2); CARBON DIOXIDE LEVEL 30 MEQ/L (21-32); CHLORIDE LEVEL 106 MEQ/L (98-107); CREATININE FOR GFR 1.36 MG/DL (0.55-1.30); ETHYL ALCOHOL (ETHANOL) 0.026 % (0.000-0.010); GLOMERULAR FILTRATION RATE 41.2 (>45); GLUCOSE, FASTING 80 MG/DL (70-100); POTASSIUM SERUM 4.1 MEQ/L (3.5-5.1); SALICYLATE LEVEL < 1.7 MG/DL (5.0-30.0); SODIUM LEVEL 141 MEQ/L (136-145); TOTAL PROTEIN 6.9 GM/DL (6.4-8.2)
[2021-02-24 18:31] LABS: AMPHETAMINES LEVEL URINE NEGATIVE (NEGATIVE); BARBITURATES URINE NEGATIVE (NEGATIVE); BENZODIAZEPINES URINE NEGATIVE (NEGATIVE); CANNABINOIDS URINE NEGATIVE (NEGATIVE); COCAINE METABOLITE URINE NEGATIVE (NEGATIVE); METHADONE URINE NEGATIVE (NEGATIVE); OPIATES URINE NEGATIVE (NEGATIVE); PHENCYCLIDINE URINE NEGATIVE (NEGATIVE)
[2021-02-24 19:17] LABS: RSV AMPLIFICATION NEGATIVE (NEGATIVE)
[2021-02-24] MEDS ORDERED: ACET650T15 PO (19:20)
[2021-02-24] MEDS ORDERED: VITMTA PO (19:25)
[2021-02-24] MEDS ORDERED: FLUO-96 PO (19:25)
[2021-02-24] MEDS ORDERED: MONT10TA97 PO (19:25)
[2021-02-24] MEDS ORDERED: BAYE81TA10 PO (19:25)
[2021-02-24] MEDS ORDERED: GLIM2TAB4 PO (19:27)
[2021-02-24] MEDS ORDERED: THEO1CAP4 PO (19:27)
[2021-02-24] MEDS ORDERED: HOME MED LIST COMPLETE! XX SCH (19:30)
[2021-02-24] MEDS ORDERED: DEXTROSE 50% 50 ML SYRINGE IV PRN (19:35)
[2021-02-24] MEDS ORDERED: LORazepam 2 MG TAB PO PRN (19:35)
[2021-02-24] MEDS ORDERED: GLUCAGON INJ 1MG VIAL SC PRN (19:35)
[2021-02-24] MEDS ORDERED: GLUCOSE 4GM CHEW TABLET PO PRN (19:35)
[2021-02-24 19:39] LABS: THEOPHYLLINE LEVEL 2.8 UG/ML (10.0-20.0)
[2021-02-24] MEDS ORDERED: ALBUTEROL 90 MCG/ACT 8GM HFA INHALER INH PRN (20:20)
[2021-02-24] MEDS ORDERED: ALBUTEROL SULFATE 2.5 MG/0.5 ML INH NEB SOLN INH PRN (20:20)
[2021-02-24] MEDS ORDERED: MOM 30ML SUSPENSION UDC PO PRN (20:20)
[2021-02-24] MEDS: HumaLOG INSULIN (NovoLOG) PER UNIT SC SCH (21:00)
[2021-02-24] MEDS: THIAMINE 100 MG TAB PO SCH (21:10)
[2021-02-24 22:08] LABS: ALBUMIN 3.1 GM/DL (3.2-5.2); BILIRUBIN,TOTAL 0.2 MG/DL (0.2-1.0); CALCIUM LEVEL 9.5 MG/DL (8.8-10.2); CREATININE FOR GFR 1.36 MG/DL (0.55-1.30); GLOMERULAR FILTRATION RATE 41.2 (>45); POTASSIUM SERUM 4.4 MEQ/L (3.5-5.1); THEOPHYLLINE LEVEL 2.2 UG/ML (10.0-20.0); TOTAL PROTEIN 6.2 GM/DL (6.4-8.2)
[2021-02-24 22:14] LABS: HEMOGLOBIN A1c 5.7 %
[2021-02-25] VITALS: BP 126/59
[2021-02-25 02:11] LABS: ALBUMIN 3.1 GM/DL (3.2-5.2); ALT/SGPT 56 U/L (12-78); BILIRUBIN,TOTAL 0.2 MG/DL (0.2-1.0); BLOOD UREA NITROGEN 25 MG/DL (7-18); CALCIUM LEVEL 9.8 MG/DL (8.8-10.2); CARBON DIOXIDE LEVEL 36 MEQ/L (21-32); CHLORIDE LEVEL 106 MEQ/L (98-107); CREATININE FOR GFR 1.33 MG/DL (0.55-1.30); GLOMERULAR FILTRATION RATE 42.2 (>45); GLUCOSE, FASTING 105 MG/DL (70-100); POTASSIUM SERUM 4.8 MEQ/L (3.5-5.1); SODIUM LEVEL 143 MEQ/L (136-145); THEOPHYLLINE LEVEL < 2.0 UG/ML (10.0-20.0); TOTAL PROTEIN 6.1 GM/DL (6.4-8.2)
[2021-02-25 04:00] VITALS: BP 136/60
[2021-02-25 06:03] LABS: HEMATOCRIT 45.9 % (36.0-47.0); HEMOGLOBIN 13.7 g/dl (12.0-15.5); MEAN CORPUSCULAR HEMOGLOBIN 27.1 pg (27.0-33.0); MEAN CORPUSCULAR HGB CONC 29.8 g/dl (32.0-36.5); MEAN CORPUSCULAR VOLUME 90.9 fl (80.0-96.0); PLATELET COUNT, AUTOMATED 186 10^3/uL (150-450); RED BLOOD COUNT 5.05 10^6/uL (4.00-5.40); WHITE BLOOD COUNT 6.9 10^3/uL (4.0-10.0)
[2021-02-25 06:22] LABS: HEMOGLOBIN A1c 5.7 %
[2021-02-25 06:32] LABS: CALCIUM LEVEL 9.4 MG/DL (8.8-10.2); CREATININE FOR GFR 1.28 MG/DL (0.55-1.30); GLOMERULAR FILTRATION RATE 44.1 (>45); POTASSIUM SERUM 4.6 MEQ/L (3.5-5.1)
[2021-02-25 06:38] LABS: ALBUMIN 3.1 GM/DL (3.2-5.2); BILIRUBIN,TOTAL 0.3 MG/DL (0.2-1.0); CREATININE FOR GFR 1.28 MG/DL (0.55-1.30); GLOMERULAR FILTRATION RATE 44.1 (>45); POTASSIUM SERUM 4.5 MEQ/L (3.5-5.1); TOTAL PROTEIN 6.1 GM/DL (6.4-8.2)
[2021-02-25] MEDS: HumaLOG INSULIN (NovoLOG) PER UNIT SC SCH ×4 (07:30→20:13)
[2021-02-25 08:00] VITALS: BP 166/62
[2021-02-25] MEDS: METOPROLOL SUCC (TopROL XL) 50MG **XL** TAB PO SCH (09:00)
[2021-02-25] MEDS: MULTIVITAMINS/MINERALS THERAP 1 TAB PO SCH (10:11)
[2021-02-25] MEDS: FOLIC ACID 1 MG TAB PO SCH (10:11)
[2021-02-25] MEDS: ASPIRIN 81MG ENTERIC TABLET PO SCH (10:11)
[2021-02-25] MEDS: MONTELUKAST 10 MG TAB PO SCH (10:11)
[2021-02-25] MEDS: THIAMINE 100 MG TAB PO SCH ×2 (10:11→20:12)
[2021-02-25] MEDS: ENOXAPARIN 40MG/0.4ML SYRINGE (J1650 PER 10MG) SC SCH (10:11)
[2021-02-25 11:07] LABS: BILIRUBIN,TOTAL 0.4 MG/DL (0.2-1.0); CALCIUM LEVEL 9.7 MG/DL (8.8-10.2); CREATININE FOR GFR 1.39 MG/DL (0.55-1.30); GLOMERULAR FILTRATION RATE 40.1 (>45); POTASSIUM SERUM 4.5 MEQ/L (3.5-5.1)
[2021-02-25 12:00] VITALS: BP 154/72
[2021-02-25 14:21] LABS: ALBUMIN 3.2 GM/DL (3.2-5.2); BILIRUBIN,TOTAL 0.3 MG/DL (0.2-1.0); CALCIUM LEVEL 10.1 MG/DL (8.8-10.2); CREATININE FOR GFR 1.23 MG/DL (0.55-1.30); GLOMERULAR FILTRATION RATE 46.2 (>45); POTASSIUM SERUM 4.8 MEQ/L (3.5-5.1); TOTAL PROTEIN 6.2 GM/DL (6.4-8.2)
[2021-02-25 16:00] VITALS: BP 160/72
[2021-02-25] MEDS ORDERED: CHLORTHALIDONE 25 MG TAB PO ONE (18:00)
[2021-02-25 20:00] VITALS: BP 127/57
[2021-02-26] VITALS: BP 141/63
[2021-02-26] MEDS ORDERED: ACETAMINOPHEN TAB 650MG DOSE (2X325MG) PO PRN (01:50)
[2021-02-26 04:00] VITALS: BP 131/61
[2021-02-26 06:07] LABS: HEMOGLOBIN 13.5 g/dl (12.0-15.5); MEAN CORPUSCULAR HEMOGLOBIN 26.9 pg (27.0-33.0); MEAN CORPUSCULAR HGB CONC 29.3 g/dl (32.0-36.5); MEAN CORPUSCULAR VOLUME 91.8 fl (80.0-96.0); PLATELET COUNT, AUTOMATED 173 10^3/uL (150-450); RED BLOOD COUNT 5.01 10^6/uL (4.00-5.40); WHITE BLOOD COUNT 7.2 10^3/uL (4.0-10.0)
[2021-02-26 06:30] LABS: CALCIUM LEVEL 9.2 MG/DL (8.8-10.2); CREATININE FOR GFR 1.27 MG/DL (0.55-1.30); GLOMERULAR FILTRATION RATE 44.5 (>45); MAGNESIUM LEVEL 2.1 MG/DL (1.8-2.4); POTASSIUM SERUM 4.2 MEQ/L (3.5-5.1)
[2021-02-26 08:00] VITALS: BP 181/73
[2021-02-26] MEDS: HumaLOG INSULIN (NovoLOG) PER UNIT SC SCH ×2 (08:34→12:35)
[2021-02-26] MEDS: ENOXAPARIN 40MG/0.4ML SYRINGE (J1650 PER 10MG) SC SCH (08:34)
[2021-02-26 08:36] VITALS: BP 181/73
[2021-02-26] MEDS: ASPIRIN 81MG ENTERIC TABLET PO SCH (08:36)
[2021-02-26] MEDS: METOPROLOL SUCC (TopROL XL) 50MG **XL** TAB PO SCH (08:36)
[2021-02-26] MEDS: MONTELUKAST 10 MG TAB PO SCH (08:36)
[2021-02-26] MEDS: MULTIVITAMINS/MINERALS THERAP 1 TAB PO SCH (08:36)
[2021-02-26] MEDS: THIAMINE 100 MG TAB PO SCH (08:36)
[2021-02-26] MEDS: FOLIC ACID 1 MG TAB PO SCH (08:36)
[2021-02-26 10:51] VITALS: BP 135/60
== END 2021-02-26 15:20 | DRG 918 ==
LOC: M ED 17:21 → EDBD 17:21 → M ED INP 20:20 → M PCU 02-25 00:15 → M PSY 02-26 15:27 → M PCU 02-26 15:27
PROVIDERS: ADMIT Internal Medicine; ATTEND Family Medicine
DX: T42.4X2A Poisoning by benzodiazepines, intentional self-harm, initial encounter (principal); Z68.43 Body mass index [BMI] 50.0-59.9, adult; E87.1 Hypo-osmolality and hyponatremia; J45.909 Unspecified asthma, uncomplicated; E66.9 Obesity, unspecified; I10 Essential (primary) hypertension; E11.9 Type 2 diabetes mellitus without complications; Z79.82 Long term (current) use of aspirin; Z79.899 Other long term (current) drug therapy; F10.10 Alcohol abuse, uncomplicated; F41.9 Anxiety disorder, unspecified; F32.9 Major depressive disorder, single episode, unspecified

== ENCOUNTER 2021-02-26 09:26 | Inpatient (IN) | payer MEDICARE ==
[~2021-02-26] VITALS: Ht 160 cm; Wt 137.9 kg
[~2021-02-26 09:26] MED LIST changes: +ACET650T15 PO; +BAYE81TA10 PO; +CITA40TA4 PO; -CITA40TA7 PO; +FLUO20CA20 PO; +FLUO20CA22 PO; +GLIM2TAB4 PO; +MONT10TA10 PO; -MONT10TA97 PO; +ROSU20TA5 PO; +VITMTA PO
[2021-02-26] MEDS ORDERED: MAALOX 30 ML SUSP *UDC PO PRN (09:45)
[2021-02-26] MEDS ORDERED: traZODone 50 MG TAB PO PRN (09:45)
[2021-02-26] MEDS ORDERED: MOM 30ML SUSPENSION UDC PO PRN (09:45)
[2021-02-26] MEDS ORDERED: HOME MED LIST COMPLETE! XX SCH (15:45)
[2021-02-26] MEDS: ACETAMINOPHEN TAB 650MG DOSE (2X325MG) PO PRN (16:18)
[2021-02-26] MEDS: LORazepam 0.5 MG TAB PO PRN (20:03)
[2021-02-26] MEDS ORDERED: DEXTROSE 50% 50 ML SYRINGE IV PRN (20:50)
[2021-02-26] MEDS ORDERED: GLUCOSE 4GM CHEW TABLET PO PRN (20:50)
[2021-02-26] MEDS ORDERED: GLUCAGON INJ 1MG VIAL SC PRN (20:50)
[2021-02-26] MEDS: HumaLOG INSULIN (NovoLOG) PER UNIT SC SCH (21:00)
[2021-02-26] MEDS: buPROPion (WELLBUTRIN SR) 100 MG SR TAB PO SCH (21:07)
[2021-02-26] MEDS ORDERED: MONTELUKAST 10 MG TAB PO STA (21:20)
[2021-02-26] MEDS: ROSUVASTATIN 10 MG TAB (CRESTOR) PO SCH (22:16)
[2021-02-26] MEDS: THEOPHYLLINE (THEO-24) 100MG SR **CAPSULE PO SCH (22:17)
[2021-02-26] MEDS: ALBUTEROL 90 MCG/ACT 8GM HFA INHALER INH PRN (22:21)
[2021-02-27 06:27] VITALS: BP 190/84
[2021-02-27] MEDS: HumaLOG INSULIN (NovoLOG) PER UNIT SC SCH ×4 (06:51→20:28)
[2021-02-27] MEDS ORDERED: METOPROLOL SUCC (TopROL XL) 50MG **XL** TAB PO ONE (08:00)
[2021-02-27] MEDS: ASPIRIN 81MG ENTERIC TABLET PO SCH (08:48)
[2021-02-27] MEDS: buPROPion (WELLBUTRIN SR) 100 MG SR TAB PO SCH ×2 (08:48→20:32)
[2021-02-27] MEDS: MONTELUKAST 10 MG TAB PO SCH (08:49)
[2021-02-27] MEDS: amLODIPine 5 MG TAB PO SCH (08:50)
[2021-02-27] MEDS: LORazepam 0.5 MG TAB PO PRN (08:52)
[2021-02-27] MEDS: ACETAMINOPHEN TAB 650MG DOSE (2X325MG) PO PRN ×2 (08:54→20:31)
[2021-02-27] MEDS ORDERED: METOPROLOL SUCC (TopROL XL) 50MG **XL** TAB PO SCH (09:00)
[2021-02-27] MEDS ORDERED: buPROPion **XL** TABLET 150MG (WELLBUTRIN XL) PO SCH (09:00)
[2021-02-27 09:24] LABS: BASO # 0.1 10^3/uL (0.0-0.2); BASO % 0.8 % (0.0-1.0); EOS # 0.4 10^3/uL (0.0-0.5); EOS % 5.4 % (0.0-3.0); HEMATOCRIT 48.4 % (36.0-47.0); HEMOGLOBIN 14.3 g/dl (12.0-15.5); LYMPH # 1.7 10^3/uL (1.5-5.0); LYMPH % 20.9 % (24.0-44.0); MEAN CORPUSCULAR HEMOGLOBIN 27.2 pg (27.0-33.0); MEAN CORPUSCULAR HGB CONC 29.5 g/dl (32.0-36.5); MEAN CORPUSCULAR VOLUME 92.2 fl (80.0-96.0); MONO # 0.6 10^3/uL (0.0-0.8); MONO % 7.4 % (2.0-8.0); NEUTROPHILS # 5.2 10^3/uL (1.5-8.5); NEUTROPHILS % 65.2 % (36.0-66.0); PLATELET COUNT, AUTOMATED 226 10^3/uL (150-450); RED BLOOD COUNT 5.25 10^6/uL (4.00-5.40)
[2021-02-27] MEDS ORDERED: LORazepam 2 MG TAB PO PRN (09:25)
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
[2021-02-27 09:43] LABS: CALCIUM LEVEL 9.3 MG/DL (8.8-10.2); CREATININE FOR GFR 1.42 MG/DL (0.55-1.30); GLOMERULAR FILTRATION RATE 39.2 (>45); POTASSIUM SERUM 4.5 MEQ/L (3.5-5.1)
[2021-02-27] MEDS: FLUoxetine 20 MG CAP PO SCH (09:59)
[2021-02-27] MEDS: MULTIVITAMINS/MINERALS THERAP 1 TAB PO SCH (09:59)
[2021-02-27] MEDS: FOLIC ACID 1 MG TAB PO SCH (09:59)
[2021-02-27] MEDS: THIAMINE 100 MG TAB PO SCH ×2 (09:59→20:32)
[2021-02-27 16:13] VITALS: BP 135/63
--- NOTE | 2021-02-27 17:11 | HPEPDOC ---
[facility] Medical History & Physical Date of Admission Feb 26, 2021 Date of Service: Feb 27, 2021 Other Provider Kt Dallas MD psychiatry Attending Physician: FRANCISCO JAVIER MCMILLAN DO History and Physical CHIEF COMPLAINT: Intentional overdose HISTORY OF PRESENT ILLNESS: Patient is a 70-year-old female who presented to the medical floor on 02/24/2021 after taking 4-5 of her 0.5 mg clonazepam pills around 5 PM on the day of admission and attempted suicide. Patient's apparently in November 2020 and since then she has been dealing with quite a bit of grief. Patient was cleared by poison control after 24 hours of telemetry and a bed was available in the inpatient mental health unit and the patient was discharged to the medical floor on 02/26/2021 admitted to the inpatient mental health unit. Patient states that she is feeling physically well today and does not have any other complaints at this time. PAST MEDICAL HISTORY: 1. Ydl-mdgbzxf-ptrzmzlnz diabetes. 2. Dyslipidemia. 3. Essential hypertension. 4. Class III obesity 5. Anxiety/depression PAST SURGICAL HISTORY: 1. Cholecystectomy. 2. Tonsillectomy. 3. C-sections x3. SOCIAL HISTORY: Patient denies smoking cigarettes drinks a wine cooler day and denies illicit drug use FAMILY HISTORY: Mother had ovarian cancer, father had [place] ALLERGIES: Please see below. REVIEW OF SYSTEMS: General: Patient denies fevers HEENT: Patient denies headaches Cardiovascular: Patient denies chest pain Respiratory: Patient denies shortness of breath, cough GI: Patient denies abdominal pain, nausea, vomiting, diarrhea : Patient denies increased frequency or pain with urination Extremities: Patient denies swelling or pain in extremities Neurological: Patient denies numbness or tingling in legs Skin: Patient denies any new rashes or lesions. Hematologic: Patient denies any easy bruising. Lymphatic: Patient denies any lumps lumps or bumps in neck, axilla, or groin HOME MEDICATIONS: Please see below. PHYSICAL EXAMINATION: VITAL SIGNS: Temperature 98.1, pulse 58, respiratory rate 16, blood pressure 135/631, pulse oximetry 100% on room air. General: Alert and oriented female patient who was sitting in the room when I walked in. Patient did not appear to be in any acute distress. HEENT: Normocephalic, atraumatic, moist mucous membranes. Neck: No lymphadenopathy or thyromegaly Cardiac: Regular rate and rhythm, no murmurs, normal S1, normal S2 Pulm: Clear to auscultation bilaterally. No wheezes, rhonchi, rales Abd: Nondistended, nontender to palpation, normal bowel sounds Ext: No edema bilateral lower extremities Neuro: Patient was able to move all 4 extremities on command and reported equal sensation light touch in all 4 extremities. Skin: Skin of the head, neck, upper and lower extremities was examined did not show any evidence of rash or wounds. LABORATORY DATA: See below. IMAGING: No imaging has been performed MICROBIOLOGY: Please see below. ASSESSMENT: 70-year-old female who initially presented to the medical floor with clonazepam overdose who was admitted to the inpatient mental health unit for ongoing care for suicidal attempt.. . PLAN: 1. Suicide attempt. Patient was cleared medically from poison control. Patient was admitted to inpatient mental health unit we will continue the care from psychiatry. 2. Hypertension. Patient takes metoprolol for hypertension outpatient however, patient's blood pressures have been elevated. Amlodipine 5 mg daily has been added with hold parameters. Patient will need to have her blood pressure closely monitored. 3. Yss-hrlarjn-uajrysdsy diabetes mellitus. Patient can be placed on sliding scale insulin with consistent carbohydrate diet. 4. Hyperlipidemia. Continue rosuvastatin. Disposition: Patient can be discharged from the inpatient mental health unit per psychiatry. Please reconsult hospitalist if the need arises. Thank you for this consult. Vital Signs Vital Signs Date Time Temp Pulse Resp B/P (MAP) Pulse Ox O2 Delivery O2 Flow Rate FiO2 02/27/21 16:13 98.1 58 16 135/63 (87) 100 Room Air Laboratory Data Labs 24H Laboratory Tests 2 02/26/21 21:57: Bedside Glucose (Misc Panel) 116H 02/27/21 06:47: Bedside Glucose (Misc Panel) 118H 02/27/21 08:42: Immature Granulocyte % (Auto) 0.3, Neutrophils (%) (Auto) 65.2, Lymphocytes (%) (Auto) 20.9L, Monocytes (%) (Auto) 7.4, Eosinophils (%) (Auto) 5.4H, Basophils (%) (Auto) 0.8, Neutrophils # (Auto) 5.2, Lymphocytes # (Auto) 1.7, Monocytes # (Auto) 0.6, Eosinophils # (Auto) 0.4, Basophils # (Auto) 0.1, Nucleated Red Blood Cells % (auto) 0.0, Anion Gap 6L, Glomerular Filtration Rate 39.2L, Calcium Level 9.3 02/27/21 12:02: Bedside Glucose (Misc Panel) 87 CBC/BMP Laboratory Tests 02/27/21 08:42 Home Medications Scheduled Aspirin (Low Dose Aspirin EC) 81 Mg Tablet.dr, 81 MG PO DAILY Bupropion HCl (Bupropion HCl Sr) 100 Mg Tab.sr.12h, 100 MG PO BID Glimepiride (Glimepiride) 2 Mg Tablet, 2 MG PO QAM Metoprolol Succinate (Metoprolol Succinate) 50 Mg Tab, 50 MG PO DAILY Montelukast Sodium (Montelukast Sodium) 10 Mg Tablet, 10 MG PO QAM Multivitamins (Thera M Plus Tablet) 1 Each Tablet, 1 TAB PO QAM Rosuvastatin Calcium (Rosuvastatin Calcium) 20 Mg Tablet, 20 MG PO QPM Theophylline Anhydrous (Elías-24) 300 Mg Cap.er.24h, 300 MG PO QHS Scheduled PRN Acetaminophen (Acetaminophen ER) 650 Mg Tablet.er, 650 MG PO Q8H PRN for MILD PAIN (PS 1-4) Albuterol Sulfate (Albuterol Sulfate) 2.5 Mg/0.5 Ml Vial.neb, 2.5 MG INH Q4H PRN for SOB/WHEEZING Albuterol Sulfate (Ventolin Hfa) 18 Gm Hfa.aer.ad, 2 PUFF INH Q4-6HP PRN for wh eezing Allergies Coded Allergies: ENVIRONMENTAL (Verified Allergy, Unknown, 04/27/19) A-FIB/CHADSVASC A-FIB History Current/History of A-Fib/PAF?: No Age/Risk Factor Scoring CHADSVASC: CHADSVASC Response (Comments) Value Age Risk Factor Age < 65 years old 0 Gender Risk Factor Female 1 Hx of CHF No 0 Hx of HTN Yes 1 Hx of Stroke/TIA/or VTE No 0 Hx of Diabetes Yes 1 Hx of Vascular Disease No 0 Total 3 FRANCISCO JAVIER MCMILLAN DO Feb 27, 2021 17:11
[2021-02-27] MEDS: THEOPHYLLINE (THEO-24) 100MG SR **CAPSULE PO SCH (20:31)
[2021-02-27] MEDS: ROSUVASTATIN 10 MG TAB (CRESTOR) PO SCH (20:32)
[2021-02-27 21:17] VITALS: BP 135/63
[2021-02-28 06:37] VITALS: BP 153/68
[2021-02-28] MEDS: HumaLOG INSULIN (NovoLOG) PER UNIT SC SCH ×4 (06:37→21:00)
[2021-02-28] MEDS: MULTIVITAMINS/MINERALS THERAP 1 TAB PO SCH (08:45)
[2021-02-28] MEDS: FOLIC ACID 1 MG TAB PO SCH (08:45)
[2021-02-28] MEDS: ASPIRIN 81MG ENTERIC TABLET PO SCH (08:45)
[2021-02-28] MEDS: THIAMINE 100 MG TAB PO SCH ×2 (08:45→21:34)
[2021-02-28] MEDS: FLUoxetine 20 MG CAP PO SCH (08:46)
[2021-02-28] MEDS: MONTELUKAST 10 MG TAB PO SCH (08:46)
[2021-02-28] MEDS: ACETAMINOPHEN TAB 650MG DOSE (2X325MG) PO PRN (08:46)
[2021-02-28] MEDS: buPROPion (WELLBUTRIN SR) 100 MG SR TAB PO SCH ×2 (08:46→21:34)
[2021-02-28] MEDS: amLODIPine 5 MG TAB PO SCH (08:49)
[2021-02-28] MEDS: METOPROLOL SUCC (TopROL XL) 50MG **XL** TAB PO SCH (08:49)
[2021-02-28] MEDS: ALBUTEROL 90 MCG/ACT 8GM HFA INHALER INH PRN (08:51)
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
[2021-02-28 14:00] VITALS: BP 160/82
[2021-02-28 16:19] VITALS: BP 154/74
[2021-02-28] MEDS: ROSUVASTATIN 10 MG TAB (CRESTOR) PO SCH (21:35)
[2021-02-28] MEDS: THEOPHYLLINE (THEO-24) 100MG SR **CAPSULE PO SCH (21:36)
[2021-02-28 21:44] VITALS: BP 150/74
[2021-03-01 06:23] VITALS: BP 152/70
[2021-03-01] MEDS: HumaLOG INSULIN (NovoLOG) PER UNIT SC SCH ×4 (06:34→21:00)
[2021-03-01] MEDS: ACETAMINOPHEN TAB 650MG DOSE (2X325MG) PO PRN ×2 (06:35→15:35)
[2021-03-01] MEDS: METOPROLOL SUCC (TopROL XL) 50MG **XL** TAB PO SCH (09:04)
[2021-03-01] MEDS: MULTIVITAMINS/MINERALS THERAP 1 TAB PO SCH (09:05)
[2021-03-01] MEDS: buPROPion (WELLBUTRIN SR) 100 MG SR TAB PO SCH ×2 (09:05→21:27)
[2021-03-01] MEDS: FLUoxetine 20 MG CAP PO SCH (09:05)
[2021-03-01] MEDS: ASPIRIN 81MG ENTERIC TABLET PO SCH (09:05)
[2021-03-01] MEDS: THIAMINE 100 MG TAB PO SCH ×2 (09:05→21:26)
[2021-03-01] MEDS: amLODIPine 5 MG TAB PO SCH (09:05)
[2021-03-01] MEDS: FOLIC ACID 1 MG TAB PO SCH (09:05)
[2021-03-01] MEDS: MONTELUKAST 10 MG TAB PO SCH (09:05)
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
[2021-03-01] MEDS: ALBUTEROL 90 MCG/ACT 8GM HFA INHALER INH PRN ×2 (13:56→21:34)
[2021-03-01 14:00] VITALS: BP 126/60
[2021-03-01 16:41] VITALS: BP 126/60
[2021-03-01] MEDS: ROSUVASTATIN 10 MG TAB (CRESTOR) PO SCH (21:26)
[2021-03-01] MEDS: THEOPHYLLINE (THEO-24) 100MG SR **CAPSULE PO SCH (21:26)
[2021-03-02 06:34] VITALS: BP 151/72
[2021-03-02] MEDS: HumaLOG INSULIN (NovoLOG) PER UNIT SC SCH ×2 (08:11→12:00)
[2021-03-02] MEDS: ALBUTEROL 90 MCG/ACT 8GM HFA INHALER INH PRN ×2 (08:38→20:40)
[2021-03-02] MEDS: buPROPion (WELLBUTRIN SR) 100 MG SR TAB PO SCH ×2 (08:40→20:41)
[2021-03-02] MEDS: METOPROLOL SUCC (TopROL XL) 50MG **XL** TAB PO SCH (08:40)
[2021-03-02] MEDS: amLODIPine 5 MG TAB PO SCH (08:41)
[2021-03-02] MEDS: FLUoxetine 20 MG CAP PO SCH (08:41)
[2021-03-02] MEDS: MONTELUKAST 10 MG TAB PO SCH (08:41)
[2021-03-02] MEDS: ASPIRIN 81MG ENTERIC TABLET PO SCH (08:42)
[2021-03-02] MEDS: FOLIC ACID 1 MG TAB PO SCH (08:42)
[2021-03-02] MEDS: MULTIVITAMINS/MINERALS THERAP 1 TAB PO SCH (08:42)
[2021-03-02] MEDS: ACETAMINOPHEN TAB 650MG DOSE (2X325MG) PO PRN ×2 (08:43→20:41)
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
[2021-03-02 17:53] VITALS: BP 138/76
[2021-03-02] MEDS: ROSUVASTATIN 10 MG TAB (CRESTOR) PO SCH (20:40)
[2021-03-02] MEDS: THEOPHYLLINE (THEO-24) 100MG SR **CAPSULE PO SCH (20:40)
[2021-03-03 06:48] VITALS: BP 145/78
[2021-03-03] MEDS: GLIMEPIRIDE 2 MG TAB PO SCH (08:37)
[2021-03-03] MEDS: MONTELUKAST 10 MG TAB PO SCH (08:55)
[2021-03-03] MEDS: ALBUTEROL 90 MCG/ACT 8GM HFA INHALER INH PRN ×2 (08:55→21:24)
[2021-03-03] MEDS: METOPROLOL SUCC (TopROL XL) 50MG **XL** TAB PO SCH (08:55)
[2021-03-03] MEDS: buPROPion (WELLBUTRIN SR) 100 MG SR TAB PO SCH ×2 (08:55→21:22)
[2021-03-03] MEDS: amLODIPine 5 MG TAB PO SCH (08:56)
[2021-03-03] MEDS: FLUoxetine 20 MG CAP PO SCH (08:56)
[2021-03-03] MEDS: MULTIVITAMINS/MINERALS THERAP 1 TAB PO SCH (08:56)
[2021-03-03] MEDS: FOLIC ACID 1 MG TAB PO SCH (08:56)
[2021-03-03] MEDS: ASPIRIN 81MG ENTERIC TABLET PO SCH (08:56)
[2021-03-03] MEDS: ACETAMINOPHEN TAB 650MG DOSE (2X325MG) PO PRN ×2 (09:01→21:22)
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
--- NOTE | 2021-03-03 17:41 | IPNPDOC ---
Text Note Date of Service The patient was seen on 03/03/21. NOTE Subjective: Patient is a 70-year-old female with a PMHx of HTN, NIDDM2, DLP, Anxiety / Depression, Obesity who presented to the ER on 02/24 after she attempted suicide. Patient was medically cleared and was transitioned inpatient mental health unit on 02/26. Medical team has provided initial consultation on 02/27. I was called to evaluate patient today because of reported cough, questionable bronchitis or pneumonia. Patient was seen and examined at the bedside. Patient denies any nausea, vomiting, abdominal pain, diarrhea, or urinary discomfort. Patient reports her cough has been going on for last few days. Patient reports 3 instances today where she had coughed up yellow sputum. She subjectively reports some shortness of breath. Objective: Vitals (See below) General: Lying in bed, no acute distress, comfortable, AAOx3 HEENT: NC, AT CVS: RRR, +S1S2 Lungs: Fair air entry b/l, -w/r/r Abdomen: Soft, ND, NT Extremities: - Edema, - Calf tenderness Imaging: None Assessment and plan: Reported cough / Hx of Asthma - Clinically patient has reported a cough and subjective shortness of breath - Patient is currently saturating at 94% on room air - Physical does not reveal any adventitious lung sounds - Will get CXR / Sputum cultures / Respiratory panel / Procalcitonin - c/w inhaled therapy as ordered HTN - BP well controlled - c/w Metoprolol / Amlodipine NIDDM2 - c/w Glimepiride DLP - c/w Rosuvastatin CKD3 - Cr baseline of ~1.4 Anxiety / Depression - Currently on Fluoxetine / Bupropion as per Psychiatry - Patient is currently admitted to the inpatient mental health unit under the care of psychiatry Obesity - Complicating medical care DVT prophylaxis - c/w early ambulation Female junior oracle dba was present for the duration of this history and physical examination Thank you for this consultation. Hospitalist service will now sign off; please reconsult as needed VS,Fishbone, I+O VS, Fishbone, I+O Vital Signs Date Time Temp Pulse Resp B/P (MAP) Pulse Ox O2 Delivery O2 Flow Rate FiO2 03/03/21 08:56 82 145/78 03/03/21 06:48 97.6 18 94 Room Air DOMINIQUE NASCIMENTO MD Mar 03, 2021 17:41
[2021-03-03 18:43] VITALS: BP 142/68
[2021-03-03 19:04] LABS: BASO # 0.1 10^3/uL (0.0-0.2); EOS # 0.3 10^3/uL (0.0-0.5); EOS % 3.4 % (0.0-3.0); HEMATOCRIT 48.4 % (36.0-47.0); HEMOGLOBIN 14.3 g/dl (12.0-15.5); LYMPH # 2.1 10^3/uL (1.5-5.0); LYMPH % 23.9 % (24.0-44.0); MEAN CORPUSCULAR HEMOGLOBIN 27.2 pg (27.0-33.0); MEAN CORPUSCULAR HGB CONC 29.5 g/dl (32.0-36.5); MONO # 0.7 10^3/uL (0.0-0.8); MONO % 8.5 % (2.0-8.0); NEUTROPHILS # 5.4 10^3/uL (1.5-8.5); PLATELET COUNT, AUTOMATED 240 10^3/uL (150-450); RED BLOOD COUNT 5.26 10^6/uL (4.00-5.40); WHITE BLOOD COUNT 8.6 10^3/uL (4.0-10.0)
[2021-03-03] MEDS: THEOPHYLLINE (THEO-24) 100MG SR **CAPSULE PO SCH (21:22)
[2021-03-03] MEDS: ROSUVASTATIN 10 MG TAB (CRESTOR) PO SCH (21:22)
--- NOTE | 2021-03-03 22:18 | REPVR ---
PROCEDURE INFORMATION: Exam: XR Chest Exam date and time: 03/03/21 (8:56pm) Age: 70 years old Clinical indication: Cough TECHNIQUE: Imaging protocol: XR of the chest Views: 2 views COMPARISON: Left ribs + CXR of 05/31/20 FINDINGS: Lungs: Unremarkable. No consolidation. Pleural spaces: Unremarkable. No pleural effusions. No pneumothorax. Heart/Mediastinum: Unremarkable. No cardiomegaly. Bones/joints: Unremarkable. Soft tissues: Prominent breast shadows. IMPRESSION: No acute findings. Lung deutsch remain clear. Electronically signed by: Maya Kay On 03/03/2021 22:18:14 PM
[2021-03-04 06:25] VITALS: BP 148/80
[2021-03-04] MEDS: GLIMEPIRIDE 2 MG TAB PO SCH (08:27)
[2021-03-04] MEDS: MULTIVITAMINS/MINERALS THERAP 1 TAB PO SCH (09:28)
[2021-03-04] MEDS: ASPIRIN 81MG ENTERIC TABLET PO SCH (09:28)
[2021-03-04] MEDS: buPROPion (WELLBUTRIN SR) 100 MG SR TAB PO SCH ×2 (09:28→21:10)
[2021-03-04] MEDS: MONTELUKAST 10 MG TAB PO SCH (09:29)
[2021-03-04] MEDS: amLODIPine 5 MG TAB PO SCH (09:29)
[2021-03-04] MEDS: FLUoxetine 20 MG CAP PO SCH (09:29)
[2021-03-04] MEDS: FOLIC ACID 1 MG TAB PO SCH (09:29)
[2021-03-04] MEDS: METOPROLOL SUCC (TopROL XL) 50MG **XL** TAB PO SCH (09:29)
[2021-03-04] MEDS: ALBUTEROL 90 MCG/ACT 8GM HFA INHALER INH PRN ×2 (13:54→21:15)
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
[2021-03-04 17:40] VITALS: BP 145/80
[2021-03-04] MEDS: ROSUVASTATIN 10 MG TAB (CRESTOR) PO SCH (21:10)
[2021-03-04] MEDS: THEOPHYLLINE (THEO-24) 100MG SR **CAPSULE PO SCH (21:10)
[2021-03-04] MEDS: ACETAMINOPHEN TAB 650MG DOSE (2X325MG) PO PRN (21:17)
[2021-03-05 06:20] VITALS: BP 156/72
[2021-03-05 07:24] LABS: INFLUENZA A AMPLIFICATION NEGATIVE (NEGATIVE); INFLUENZA B AMPLIFICATION NEGATIVE (NEGATIVE)
[2021-03-05] MEDS: ASPIRIN 81MG ENTERIC TABLET PO SCH (09:28)
[2021-03-05] MEDS: amLODIPine 5 MG TAB PO SCH (09:28)
[2021-03-05] MEDS: FOLIC ACID 1 MG TAB PO SCH (09:28)
[2021-03-05] MEDS: MONTELUKAST 10 MG TAB PO SCH (09:28)
[2021-03-05] MEDS: FLUoxetine 20 MG CAP PO SCH (09:28)
[2021-03-05] MEDS: MULTIVITAMINS/MINERALS THERAP 1 TAB PO SCH (09:29)
[2021-03-05] MEDS: METOPROLOL SUCC (TopROL XL) 50MG **XL** TAB PO SCH (09:29)
[2021-03-05] MEDS: ACETAMINOPHEN TAB 650MG DOSE (2X325MG) PO PRN ×2 (09:29→21:13)
[2021-03-05] MEDS: GLIMEPIRIDE 2 MG TAB PO SCH (09:29)
[2021-03-05] MEDS: buPROPion (WELLBUTRIN SR) 100 MG SR TAB PO SCH ×2 (09:29→21:11)
[2021-03-05] MEDS: ALBUTEROL SULFATE 2.5 MG/0.5 ML INH NEB SOLN INH PRN (09:44)
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
[2021-03-05] MEDS: ALBUTEROL 90 MCG/ACT 8GM HFA INHALER INH PRN (16:14)
[2021-03-05 18:36] VITALS: BP 150/76
[2021-03-05] MEDS: ROSUVASTATIN 10 MG TAB (CRESTOR) PO SCH (21:11)
[2021-03-05] MEDS: THEOPHYLLINE (THEO-24) 100MG SR **CAPSULE PO SCH (21:11)
[2021-03-06 07:38] VITALS: BP 139/63
[2021-03-06] MEDS: GLIMEPIRIDE 2 MG TAB PO SCH (08:13)
[2021-03-06] MEDS: MONTELUKAST 10 MG TAB PO SCH (09:55)
[2021-03-06] MEDS: METOPROLOL SUCC (TopROL XL) 50MG **XL** TAB PO SCH (09:55)
[2021-03-06] MEDS: buPROPion (WELLBUTRIN SR) 100 MG SR TAB PO SCH ×2 (09:55→21:26)
[2021-03-06] MEDS: FOLIC ACID 1 MG TAB PO SCH (09:56)
[2021-03-06] MEDS: amLODIPine 5 MG TAB PO SCH (09:56)
[2021-03-06] MEDS: FLUoxetine 20 MG CAP PO SCH (09:56)
[2021-03-06] MEDS: MULTIVITAMINS/MINERALS THERAP 1 TAB PO SCH (09:56)
[2021-03-06] MEDS: ASPIRIN 81MG ENTERIC TABLET PO SCH (09:56)
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
[2021-03-06] MEDS: ACETAMINOPHEN TAB 650MG DOSE (2X325MG) PO PRN ×2 (10:04→21:38)
[2021-03-06] MEDS: HYDROCORTISONE 1% CREAM 30 GM TOP SCH ×2 (10:16→21:26)
[2021-03-06 19:03] VITALS: BP 146/72
[2021-03-06] MEDS: ALBUTEROL SULFATE 2.5 MG/0.5 ML INH NEB SOLN INH PRN (19:47)
[2021-03-06] MEDS: ROSUVASTATIN 10 MG TAB (CRESTOR) PO SCH (21:26)
[2021-03-06] MEDS: THEOPHYLLINE (THEO-24) 100MG SR **CAPSULE PO SCH (21:26)
[2021-03-07 06:26] VITALS: BP 133/65
[2021-03-07] MEDS: GLIMEPIRIDE 2 MG TAB PO SCH (08:02)
[2021-03-07] MEDS: buPROPion (WELLBUTRIN SR) 100 MG SR TAB PO SCH ×2 (08:45→20:45)
[2021-03-07] MEDS: MONTELUKAST 10 MG TAB PO SCH (08:45)
[2021-03-07] MEDS: FLUoxetine 20 MG CAP PO SCH (08:45)
[2021-03-07] MEDS: FOLIC ACID 1 MG TAB PO SCH (08:45)
[2021-03-07] MEDS: ASPIRIN 81MG ENTERIC TABLET PO SCH (08:45)
[2021-03-07] MEDS: MULTIVITAMINS/MINERALS THERAP 1 TAB PO SCH (08:45)
[2021-03-07] MEDS: amLODIPine 5 MG TAB PO SCH (08:45)
[2021-03-07] MEDS: ACETAMINOPHEN TAB 650MG DOSE (2X325MG) PO PRN ×2 (08:46→16:49)
[2021-03-07] MEDS: METOPROLOL SUCC (TopROL XL) 50MG **XL** TAB PO SCH (08:46)
[2021-03-07] MEDS: HYDROCORTISONE 1% CREAM 30 GM TOP SCH ×2 (08:47→20:44)
[2021-03-07] MEDS: ALBUTEROL 90 MCG/ACT 8GM HFA INHALER INH PRN (08:51)
[2021-03-07 18:01] VITALS: BP 129/58
[2021-03-07] MEDS: ROSUVASTATIN 10 MG TAB (CRESTOR) PO SCH (20:45)
[2021-03-07] MEDS: THEOPHYLLINE (THEO-24) 100MG SR **CAPSULE PO SCH (20:45)
[2021-03-08] MEDS: ALBUTEROL 90 MCG/ACT 8GM HFA INHALER INH PRN ×2 (01:32→21:23)
[2021-03-08] MEDS: LORazepam 0.5 MG TAB PO PRN (01:32)
[2021-03-08 07:43] VITALS: BP 121/58
[2021-03-08] MEDS: GLIMEPIRIDE 2 MG TAB PO SCH (08:41)
[2021-03-08] MEDS: METOPROLOL SUCC (TopROL XL) 50MG **XL** TAB PO SCH (09:00)
[2021-03-08] MEDS: buPROPion (WELLBUTRIN SR) 100 MG SR TAB PO SCH ×2 (09:00→21:22)
[2021-03-08] MEDS: ASPIRIN 81MG ENTERIC TABLET PO SCH (09:01)
[2021-03-08] MEDS: MULTIVITAMINS/MINERALS THERAP 1 TAB PO SCH (09:01)
[2021-03-08] MEDS: FOLIC ACID 1 MG TAB PO SCH (09:01)
[2021-03-08] MEDS: MONTELUKAST 10 MG TAB PO SCH (09:01)
[2021-03-08] MEDS: FLUoxetine 20 MG CAP PO SCH (09:01)
[2021-03-08] MEDS: amLODIPine 5 MG TAB PO SCH (09:03)
[2021-03-08] MEDS: ACETAMINOPHEN TAB 650MG DOSE (2X325MG) PO PRN ×2 (09:03→21:22)
[2021-03-08] MEDS: HYDROCORTISONE 1% CREAM 30 GM TOP SCH ×2 (09:04→21:22)
--- NOTE | 2021-03-08 16:35 | REP ---
INDICATION: Fever. COMPARISON: Upright PA and lateral chest images 03/03/2021 TECHNIQUE: AP portable chest image was obtained. FINDINGS: The patient's chin obscures a small portion of the upper mediastinum and left lung apex. The lungs are clear. There is no lobar consolidation or pleural effusion. The heart size is normal. There is calcific vascular disease of the thoracic aorta. IMPRESSION: No evidence of acute cardiopulmonary pathology. <Electronically signed by Kin Collins > 03/08/21 [id number]
[2021-03-08] MEDS: CEPACOL LOZENGE PO PRN (16:45)
[2021-03-08] MEDS ORDERED: LevoFLOXacin 500 MG TABLET PO SCH (18:00)
[2021-03-08 18:11] LABS: BASO # 0.1 10^3/uL (0.0-0.2); BASO % 1.1 % (0.0-1.0); EOS # 0.3 10^3/uL (0.0-0.5); HEMOGLOBIN 13.7 g/dl (12.0-15.5); LYMPH # 2.1 10^3/uL (1.5-5.0); LYMPH % 25.4 % (24.0-44.0); MEAN CORPUSCULAR HGB CONC 29.1 g/dl (32.0-36.5); MEAN CORPUSCULAR VOLUME 92.5 fl (80.0-96.0); MONO # 0.6 10^3/uL (0.0-0.8); MONO % 7.7 % (2.0-8.0); NEUTROPHILS % 61.3 % (36.0-66.0); PLATELET COUNT, AUTOMATED 271 10^3/uL (150-450); RED BLOOD COUNT 5.08 10^6/uL (4.00-5.40); WHITE BLOOD COUNT 8.2 10^3/uL (4.0-10.0)
[2021-03-08 18:34] LABS: ALBUMIN 3.3 GM/DL (3.2-5.2); BILIRUBIN,TOTAL 0.2 MG/DL (0.2-1.0); C REACTIVE PROTEIN QUANTITATIV 0.5 MG/DL (0.00-0.30); CALCIUM LEVEL 9.7 MG/DL (8.8-10.2); CREATININE FOR GFR 1.34 MG/DL (0.55-1.30); GLOMERULAR FILTRATION RATE 41.9 (>45); MAGNESIUM LEVEL 2.1 MG/DL (1.8-2.4); POTASSIUM SERUM 4.2 MEQ/L (3.5-5.1); TOTAL PROTEIN 6.9 GM/DL (6.4-8.2)
[2021-03-08 19:20] VITALS: BP 138/70
[2021-03-08] MEDS: THEOPHYLLINE (THEO-24) 100MG SR **CAPSULE PO SCH (21:21)
[2021-03-08] MEDS: ROSUVASTATIN 10 MG TAB (CRESTOR) PO SCH (21:22)
[2021-03-09 06:38] VITALS: BP 136/63
[2021-03-09] MEDS: CEPACOL LOZENGE PO PRN (07:13)
[2021-03-09] MEDS: buPROPion (WELLBUTRIN SR) 100 MG SR TAB PO SCH ×2 (08:38→21:27)
[2021-03-09] MEDS: FLUoxetine 20 MG CAP PO SCH (08:38)
[2021-03-09] MEDS: HYDROCORTISONE 1% CREAM 30 GM TOP SCH ×2 (08:39→21:28)
[2021-03-09] MEDS: GLIMEPIRIDE 2 MG TAB PO SCH (08:39)
[2021-03-09] MEDS: MULTIVITAMINS/MINERALS THERAP 1 TAB PO SCH (08:39)
[2021-03-09] MEDS: MONTELUKAST 10 MG TAB PO SCH (08:39)
[2021-03-09] MEDS: FOLIC ACID 1 MG TAB PO SCH (08:39)
[2021-03-09] MEDS: ASPIRIN 81MG ENTERIC TABLET PO SCH (08:39)
[2021-03-09] MEDS: amLODIPine 5 MG TAB PO SCH (08:42)
[2021-03-09] MEDS: METOPROLOL SUCC (TopROL XL) 50MG **XL** TAB PO SCH (08:42)
[2021-03-09] MEDS: ALBUTEROL 90 MCG/ACT 8GM HFA INHALER INH PRN ×2 (09:59→21:31)
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
[2021-03-09] MEDS ORDERED: BUPR10TASR PO (14:02)
[2021-03-09] MEDS ORDERED: FOLI1TAB11 PO (14:02)
[2021-03-09] MEDS ORDERED: VITMTA PO (14:02)
[2021-03-09] MEDS ORDERED: FLUO20CA22 PO (14:02)
[2021-03-09 16:21] VITALS: BP 134/70
[2021-03-09] MEDS: ROSUVASTATIN 10 MG TAB (CRESTOR) PO SCH (21:27)
[2021-03-09] MEDS: THEOPHYLLINE (THEO-24) 100MG SR **CAPSULE PO SCH (21:27)
[2021-03-09] MEDS: ACETAMINOPHEN TAB 650MG DOSE (2X325MG) PO PRN (21:32)
[2021-03-10 07:01] VITALS: BP 145/61
[2021-03-10] MEDS: ALBUTEROL 90 MCG/ACT 8GM HFA INHALER INH PRN (08:06)
[2021-03-10] MEDS: HYDROCORTISONE 1% CREAM 30 GM TOP SCH (08:09)
[2021-03-10] MEDS: ASPIRIN 81MG ENTERIC TABLET PO SCH (08:10)
[2021-03-10] MEDS: GLIMEPIRIDE 2 MG TAB PO SCH (08:10)
[2021-03-10] MEDS: FLUoxetine 20 MG CAP PO SCH (08:10)
[2021-03-10] MEDS: MONTELUKAST 10 MG TAB PO SCH (08:10)
[2021-03-10] MEDS: ACETAMINOPHEN TAB 650MG DOSE (2X325MG) PO PRN (08:10)
[2021-03-10] MEDS: buPROPion (WELLBUTRIN SR) 100 MG SR TAB PO SCH (08:10)
[2021-03-10] MEDS: MULTIVITAMINS/MINERALS THERAP 1 TAB PO SCH (08:11)
[2021-03-10 08:14] VITALS: BP 138/76
[2021-03-10] MEDS: METOPROLOL SUCC (TopROL XL) 50MG **XL** TAB PO SCH (08:14)
[2021-03-10] MEDS: amLODIPine 5 MG TAB PO SCH (08:14)
[2021-03-10] MEDS: FOLIC ACID 1 MG TAB PO SCH (08:14)
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
== END 2021-03-10 13:04 | disposition home or self-care (01) | DRG 881 ==
LOC: M PSY 15:27
PROVIDERS: ADMIT Psychiatry & Neurology Psychiatry; ATTEND Psychiatry & Neurology Psychiatry
DX: F32.9 Major depressive disorder, single episode, unspecified (principal); F10.10 Alcohol abuse, uncomplicated; Z63.4 Disappearance and death of family member; F41.0 Panic disorder [episodic paroxysmal anxiety]; Z79.82 Long term (current) use of aspirin; Z79.899 Other long term (current) drug therapy; E11.9 Type 2 diabetes mellitus without complications; E66.9 Obesity, unspecified; E78.5 Hyperlipidemia, unspecified; I10 Essential (primary) hypertension

== ENCOUNTER 2021-09-06 07:12 | Observation (INO) | payer MEDICARE ==
[~2021-09-06] VITALS: Ht 160 cm; Wt 131.3 kg
[~2021-09-06 07:12] MED LIST changes: +BUPR10TASR PO; -CITA40TA4 PO; +CITA40TA7 PO; +FLUO-96 PO; -FLUO20CA20 PO; +FOLI1TAB11 PO; -MONT10TA10 PO; +MONT10TA97 PO
[2021-09-06] MEDS ORDERED: NS 500 ML IV ONE (07:30)
[2021-09-06] MEDS ORDERED: dexameTHASONE 4 MG/ML 1ML VIAL (J1100 PER 1MG) IV ONE (07:50)
[2021-09-06] MEDS: COMBIVENT RESPIMAT 100-20MCG INHALER 4GM INH SCH ×3 (08:07→08:30)
[2021-09-06 08:21] LABS: BASO % 0.7 % (0.0-1.0); EOS # 0.4 10^3/uL (0.0-0.5); HEMATOCRIT 41.8 % (36.0-47.0); HEMOGLOBIN 12.4 g/dl (12.0-15.5); LYMPH # 1.3 10^3/uL (1.5-5.0); LYMPH % 21.6 % (24.0-44.0); MEAN CORPUSCULAR HGB CONC 29.7 g/dl (32.0-36.5); MEAN CORPUSCULAR VOLUME 94.4 fl (80.0-96.0); MONO # 0.6 10^3/uL (0.0-0.8); MONO % 9.6 % (2.0-8.0); NEUTROPHILS # 3.7 10^3/uL (1.5-8.5); NEUTROPHILS % 60.8 % (36.0-66.0); PLATELET COUNT, AUTOMATED 184 10^3/uL (150-450); RED BLOOD COUNT 4.43 10^6/uL (4.00-5.40)
[2021-09-06 08:47] LABS: BILIRUBIN,DIRECT 0.1 MG/DL (0.0-0.2); BILIRUBIN,TOTAL 0.2 MG/DL (0.2-1.0); CALCIUM LEVEL 9.4 MG/DL (8.8-10.2); CREATININE FOR GFR 1.27 MG/DL (0.55-1.30); GLOMERULAR FILTRATION RATE 44.5 (>45); POTASSIUM SERUM 4.6 MEQ/L (3.5-5.1)
[2021-09-06] MEDS ORDERED: FUROSEMIDE 100MG/10ML VIAL (J1940) IV ONE (09:25)
[2021-09-06] MEDS ORDERED: ISOVUE-370 76% 100ML VIAL As Ordered ONE (10:05)
[2021-09-06 10:11] LABS: CK-MB VALUE MASS < 1.0 NG/ML (<3.6); CPK CREATINE PHOSPHOKINASE 51 U/L (26-192); MB/CK RELATIVE INDEX 1.96 (< OR =4)
[2021-09-06 11:31] LABS: CK-MB VALUE MASS 1.3 NG/ML (<3.6); MB/CK RELATIVE INDEX 2.41 (< OR =4)
[2021-09-06] MEDS ORDERED: METOPROLOL SUCC (TopROL XL) 50MG **XL** TAB PO ONE (12:20)
[2021-09-06 12:53] VITALS: O2SAT 90
[2021-09-06] MEDS ORDERED: ALBUTEROL SULFATE 2.5 MG/0.5 ML INH NEB SOLN NEB PRN ×2 (13:35)
[2021-09-06] MEDS ORDERED: FURO40TA2 PO (14:15)
[2021-09-06] MEDS ORDERED: ARIP1TAB4 PO (14:15)
[2021-09-06] MEDS ORDERED: TRAZ-252 PO (14:15)
[2021-09-06] MEDS ORDERED: FLUO-96 PO (15:08)
[2021-09-06] MEDS ORDERED: AMOX500C PO (15:08)
[2021-09-06] MEDS ORDERED: HOME MED LIST COMPLETE! XX SCH (15:10)
[2021-09-06] MEDS: FUROSEMIDE 100MG/10ML VIAL (J1940) IV SCH (17:00)
[2021-09-06] MEDS ORDERED: ACETAMINOPHEN TAB 650MG DOSE (2X325MG) PO PRN (17:10)
[2021-09-06 20:30] VITALS: BP 106/61
[2021-09-06] MEDS ORDERED: ARIPiprazole 2 MG TAB PO SCH (21:00)
[2021-09-06] MEDS ORDERED: traZODone 50 MG TAB PO SCH (21:00)
[2021-09-06] MEDS ORDERED: PANTOPRAZOLE 40MG TAB (PROTONIX) PO SCH (21:00)
[2021-09-06] MEDS ORDERED: ROSUVASTATIN 10 MG TAB (CRESTOR) PO SCH (21:00)
[2021-09-06] MEDS ORDERED: THEOPHYLLINE (THEO-24) 100MG SR **CAPSULE PO SCH (21:00)
[2021-09-06] MEDS ORDERED: PILL CUTTER 1 EACH XX PRN (21:15)
[2021-09-06] MEDS: AMOXICILLIN 500 MG CAP PO SCH (22:38)
[2021-09-07 05:49] LABS: BASO % 0.1 % (0.0-1.0); HEMATOCRIT 45.2 % (36.0-47.0); HEMOGLOBIN 13.3 g/dl (12.0-15.5); LYMPH # 0.8 10^3/uL (1.5-5.0); LYMPH % 9.7 % (24.0-44.0); MEAN CORPUSCULAR HEMOGLOBIN 27.3 pg (27.0-33.0); MEAN CORPUSCULAR HGB CONC 29.4 g/dl (32.0-36.5); MEAN CORPUSCULAR VOLUME 92.8 fl (80.0-96.0); MONO # 0.3 10^3/uL (0.0-0.8); MONO % 3.7 % (2.0-8.0); NEUTROPHILS # 6.8 10^3/uL (1.5-8.5); NEUTROPHILS % 85.7 % (36.0-66.0); PLATELET COUNT, AUTOMATED 213 10^3/uL (150-450); RED BLOOD COUNT 4.87 10^6/uL (4.00-5.40); WHITE BLOOD COUNT 7.9 10^3/uL (4.0-10.0)
[2021-09-07 06:00] VITALS: BP 158/78
[2021-09-07 06:15] LABS: CALCIUM LEVEL 9.7 MG/DL (8.8-10.2); CREATININE FOR GFR 1.58 MG/DL (0.55-1.30); GLOMERULAR FILTRATION RATE 34.6 (>45); POTASSIUM SERUM 4.1 MEQ/L (3.5-5.1)
[2021-09-07] MEDS ORDERED: E-Z-PAQUE 96% w/w SUSP 176GM BTL As Ordered ONE (08:29)
[2021-09-07] MEDS ORDERED: E-Z-HD 98% w/w 340GM SUSP BTL As Ordered ONE (08:30)
[2021-09-07] MEDS ORDERED: E-Z-GAS II EFFERVESCENT PACKET (SODIUM BICARB./CITRIC ACID/SIMETHICONE) As Ordered ONE (08:30)
[2021-09-07] MEDS ORDERED: METOPROLOL SUCC (TopROL XL) 50MG **XL** TAB PO SCH (09:00)
[2021-09-07] MEDS ORDERED: GLIMEPIRIDE 2 MG TAB PO SCH (09:00)
[2021-09-07] MEDS ORDERED: FLUoxetine 20MG CAP PO SCH (09:00)
[2021-09-07] MEDS ORDERED: ASPIRIN 81MG ENTERIC TABLET PO SCH (09:00)
[2021-09-07] MEDS ORDERED: MONTELUKAST 10 MG TAB PO SCH (09:00)
[2021-09-07] MEDS ORDERED: buPROPion (WELLBUTRIN SR) 100 MG SR TAB PO SCH (09:00)
[2021-09-07] MEDS: AMOXICILLIN 500 MG CAP PO SCH ×2 (10:45→17:02)
[2021-09-07] MEDS: FUROSEMIDE 100MG/10ML VIAL (J1940) IV SCH (10:46)
[2021-09-07 10:48] VITALS: BP 147/54
[2021-09-07] MEDS: FUROSEMIDE 20 MG TAB PO SCH ×2 (11:30→17:00)
[2021-09-07] MEDS ORDERED: FURO40TA2 PO (13:36)
[2021-09-07] MEDS ORDERED: PANT40TA29 PO (13:36)
== END 2021-09-07 17:20 | disposition home or self-care (01) ==
LOC: M ED 07:12 → M ED INP 07:13 → ENRESERV 19:08 → M MSPAV 20:26
PROVIDERS: ADMIT Internal Medicine Nephrology; ATTEND Internal Medicine Nephrology
DX: J45.901 Unspecified asthma with (acute) exacerbation (principal); E66.01 Morbid (severe) obesity due to excess calories; R53.1 Weakness; R11.0 Nausea; E78.5 Hyperlipidemia, unspecified; E11.9 Type 2 diabetes mellitus without complications; I12.9 Hypertensive chronic kidney disease with stage 1 through stage 4 chronic kidney disease, or unspecified chronic kidney disease; N18.30 Chronic kidney disease, stage 3 unspecified; F32.A Depression, unspecified; F41.9 Anxiety disorder, unspecified; N63.20 Unspecified lump in the left breast, unspecified quadrant; Z79.82 Long term (current) use of aspirin; Z79.899 Other long term (current) drug therapy; Z79.84 Long term (current) use of oral hypoglycemic drugs; Z79.51 Long term (current) use of inhaled steroids
CPT/HCPCS: 36415; 36600; 71045; 71275; 74220; 80048; 80076; 81001; 82150; 82550; 82553; 82803; 83605; 83690; 83880; 84484; 85025; 87040; 87088; 87186; 87486; 87581; 87633; 87798; 93005; 93041; 93306; 94640; 94664; 96374; 96375; 97161; 97530; 99285; G0378; J1100; J1940; Q9967

== ENCOUNTER → 2021-09-15 | Outpatient (CLI) | payer MEDICARE ==
[~2021-09-15] MED LIST changes: +AMOX500C PO; +ARIP1TAB4 PO; +PANT40TA29 PO; +TRAZ-252 PO
== END ==
LOC: M WHC 10:04
PROVIDERS: ATTEND Nurse Practitioner Adult Health
DX: N63.22 Unspecified lump in the left breast, upper inner quadrant (principal); Z12.31 Encounter for screening mammogram for malignant neoplasm of breast
CPT/HCPCS: 76642; 77066; G0279

== ENCOUNTER → 2021-09-16 | Outpatient (CLI) | payer MEDICARE | LOC: M RAD 10:39 | PROVIDERS: ATTEND Physician Assistant Medical | DX: R22.42 Localized swelling, mass and lump, left lower limb (principal) ==

== ENCOUNTER → 2021-10-01 | Outpatient (CLI) | payer MEDICARE ==
[~2021-10-01] MED LIST changes: +**SFHN** LIDOCAINE 1% MDV 20ML VIAL ONE; +**SFHN** SODIUM BICARBONATE 8.4% 10MEQ 10ML VIAL ONE
[2021-10-01 13:30] VITALS: BP 162/80
== END ==
LOC: M WHCPRO 12:12
PROVIDERS: ATTEND Nurse Practitioner Adult Health
DX: C50.212 Malignant neoplasm of upper-inner quadrant of left female breast (principal)

== ENCOUNTER → 2021-10-12 | Outpatient (CLI) | payer MEDICARE, MEDICAID ==
[~2021-10-12] MED LIST changes: -**SFHN** LIDOCAINE 1% MDV 20ML VIAL ONE; -**SFHN** SODIUM BICARBONATE 8.4% 10MEQ 10ML VIAL ONE
[2021-10-12 20:04] LABS: CALCIUM LEVEL 9.8 MG/DL (8.8-10.2); CREATININE FOR GFR 1.48 MG/DL (0.55-1.30); GLOMERULAR FILTRATION RATE 37.3 (>45); POTASSIUM SERUM 4.3 MEQ/L (3.5-5.1)
== END ==
LOC: M PLALAB 10:22
PROVIDERS: ATTEND Surgery
DX: C50.912 Malignant neoplasm of unspecified site of left female breast (principal)

== ENCOUNTER → 2021-10-20 | Outpatient (CLI) | payer MEDICARE ==
[~2021-10-20] MED LIST changes: +EQ A1CAP PO
== END ==
LOC: M LABSMTC 09:15
PROVIDERS: ATTEND Anesthesiology
DX: Z11.52 Encounter for screening for COVID-19 (principal)

== ENCOUNTER 2021-10-22 11:19 | Day surgery (SDC) | payer MEDICARE ==
[~2021-10-22] VITALS: Ht 160 cm; Wt 131.5 kg
[~2021-10-22 11:19] MED LIST changes: +NS 1,000 ML IV ONE
[2021-10-22] MEDS ORDERED: propofoL 200 MG/20 ML VIAL As Ordered ONE (13:07)
[2021-10-22 13:45] VITALS: BP 138/69
[2021-10-26] MEDS ORDERED: PROC10TA5 PO (10:24)
[2021-10-26] MEDS ORDERED: ONDA-84 PO (10:24)
== END 2021-10-22 14:11 | disposition home or self-care (01) ==
LOC: M OPP 11:19
PROVIDERS: ATTEND Surgery
DX: K21.00 Gastro-esophageal reflux disease with esophagitis, without bleeding (principal); K29.60 Other gastritis without bleeding; K44.9 Diaphragmatic hernia without obstruction or gangrene; R93.3 Abnormal findings on diagnostic imaging of other parts of digestive tract; I11.0 Hypertensive heart disease with heart failure; E11.9 Type 2 diabetes mellitus without complications; E78.00 Pure hypercholesterolemia, unspecified; J45.909 Unspecified asthma, uncomplicated; G47.9 Sleep disorder, unspecified; Z79.02 Long term (current) use of antithrombotics/antiplatelets; Z79.1 Long term (current) use of non-steroidal anti-inflammatories (NSAID); Z79.82 Long term (current) use of aspirin; Z79.84 Long term (current) use of oral hypoglycemic drugs; Z79.899 Other long term (current) drug therapy; Z91.048 Other nonmedicinal substance allergy status; Z85.820 Personal history of malignant melanoma of skin; Z85.3 Personal history of malignant neoplasm of breast; Z96.0 Presence of urogenital implants

== ENCOUNTER → 2021-10-28 | Outpatient (CLI) | payer MEDICARE ==
[~2021-10-28] MED LIST changes: -NS 1,000 ML IV ONE; +ONDA-84 PO; +PROC10TA5 PO
== END ==
LOC: M LABSMTC 11:11
PROVIDERS: ATTEND Anesthesiology
DX: Z01.812 Encounter for preprocedural laboratory examination (principal); Z20.822 Contact with and (suspected) exposure to COVID-19

== ENCOUNTER → 2021-11-02 | Outpatient (CLI) | payer MEDICARE ==
[~2021-11-02] MED LIST changes: +DEXA4TA PO; +LIDOCAINE 1% MDV 20ML VIAL As Ordered ONE; +LOMO2.5T PO; +MIDAZOLAM INJ 2MG/2ML VIAL (J2250 PER 1MG) As Ordered ONE; +NS 1,000 ML IV SCH; +ZITH500T PO; +ceFAZolin 2 GM/D5W 50 ML IV BAG (J0690 PER 500MG) As Ordered ONE; +ceFAZolin SOD 2 GM in IV 1 EA IV ONE; +diphenhydrAMINE 50MG/ML VIAL (J1200) As Ordered ONE; +fentaNYL 100 MCG/2 ML INJECTION As Ordered ONE
[2021-11-02 11:19] VITALS: BP 159/71
== END ==
LOC: M IRPRO 07:38
PROVIDERS: ATTEND Specialist
DX: C50.912 Malignant neoplasm of unspecified site of left female breast (principal); G47.33 Obstructive sleep apnea (adult) (pediatric); J30.89 Other allergic rhinitis; Z79.51 Long term (current) use of inhaled steroids; Z79.82 Long term (current) use of aspirin; Z79.899 Other long term (current) drug therapy
CPT/HCPCS: 36561; 99152; 99153; C1769; C1788; C1894; J0690; J1200; J1642; J1644; J2250; J3010

== ENCOUNTER 2021-11-08 11:41 | Emergency (ER) | payer MEDICAID, MEDICARE ==
[~2021-11-08] VITALS: Ht 160 cm; Wt 139.6 kg
[~2021-11-08 11:41] MED LIST changes: -LIDOCAINE 1% MDV 20ML VIAL As Ordered ONE; -MIDAZOLAM INJ 2MG/2ML VIAL (J2250 PER 1MG) As Ordered ONE; -NS 1,000 ML IV SCH; -ZITH500T PO; -ceFAZolin 2 GM/D5W 50 ML IV BAG (J0690 PER 500MG) As Ordered ONE; -ceFAZolin SOD 2 GM in IV 1 EA IV ONE; -diphenhydrAMINE 50MG/ML VIAL (J1200) As Ordered ONE; -fentaNYL 100 MCG/2 ML INJECTION As Ordered ONE
[2021-11-08] MEDS ORDERED: DICYCLOMINE 10 MG CAP PO ONE (14:25)
[2021-11-08] MEDS ORDERED: ONDANSETRON 4MG TAB PO ONE (14:25)
[2021-11-08 15:15] LABS: BASO # 0.1 10^3/uL (0.0-0.2); BASO % 1.5 % (0.0-1.0); EOS # 0.1 10^3/uL (0.0-0.5); EOS % 2.1 % (0.0-3.0); HEMATOCRIT 44.6 % (36.0-47.0); HEMOGLOBIN 13.3 g/dl (12.0-15.5); LYMPH # 0.6 10^3/uL (1.5-5.0); LYMPH % 17.1 % (24.0-44.0); MEAN CORPUSCULAR HEMOGLOBIN 27.5 pg (27.0-33.0); MEAN CORPUSCULAR HGB CONC 29.8 g/dl (32.0-36.5); MEAN CORPUSCULAR VOLUME 92.3 fl (80.0-96.0); MONO % 1.2 % (2.0-8.0); NEUTROPHILS % 62.2 % (36.0-66.0); PLATELET COUNT, AUTOMATED 112 10^3/uL (150-450); RED BLOOD COUNT 4.83 10^6/uL (4.00-5.40); WHITE BLOOD COUNT 3.3 10^3/uL (4.0-10.0)
[2021-11-08 16:20] VITALS: BP 160/62
[2021-11-08] MEDS ORDERED: AZITHROMYCIN 250MG TABLET PO ONE (17:00)
[2021-11-08] MEDS ORDERED: ZITH500T PO (17:08)
== END 2021-11-08 17:52 | disposition home or self-care (01) ==
LOC: M ED 11:41
DX: A04.0 Enteropathogenic Escherichia coli infection (principal); A09 Infectious gastroenteritis and colitis, unspecified; D89.9 Disorder involving the immune mechanism, unspecified; E11.9 Type 2 diabetes mellitus without complications; I10 Essential (primary) hypertension; E78.5 Hyperlipidemia, unspecified; Z86.79 Personal history of other diseases of the circulatory system; Z91.09 Other allergy status, other than to drugs and biological substances; Z79.51 Long term (current) use of inhaled steroids; Z79.899 Other long term (current) drug therapy; Z79.84 Long term (current) use of oral hypoglycemic drugs

== ENCOUNTER → 2022-01-12 | Outpatient (REF) | payer MEDICARE ==
[~2022-01-12] MED LIST changes: +CEPH500C PO; +SUCR1TA PO; +VITA100T59 PO; +ZITH500T PO
[2022-01-12 21:12] LABS: ATYPICAL LYMPH 5 % (0-5); BASOPHILS 8 % (0-1); EOSINOPHILS 9 % (0-3); LYMPHOCYTES 51 % (16-44); MONOCYTES 7 % (0-5); NEUTROPHILS 20 % (28-66)
[2022-01-12 21:15] LABS: PLATELET ESTIMATE DECREASED (NORMAL); ROULEAUX 1+
[2022-01-12 21:16] LABS: PLATELET CLUMPS SMALL AMT
== END ==
LOC: M LAB REF 15:59
PROVIDERS: ATTEND Internal Medicine
DX: C50.912 Malignant neoplasm of unspecified site of left female breast (principal); D72.9 Disorder of white blood cells, unspecified

== ENCOUNTER → 2022-01-12 | Outpatient (CLI) | payer MEDICAID, MEDICARE ==
[~2022-01-12] MED LIST changes: +ASCO500T PO; +OXYC-517 PO; +ROXI1TAB2 PO; +SUCR1TAB56 PO
== END ==
LOC: M ONCR 09:37
PROVIDERS: ATTEND Radiology Radiation Oncology
DX: C50.212 Malignant neoplasm of upper-inner quadrant of left female breast (principal); F32.A Depression, unspecified; I11.0 Hypertensive heart disease with heart failure; I50.9 Heart failure, unspecified; J30.89 Other allergic rhinitis; R73.03 Prediabetes; E78.00 Pure hypercholesterolemia, unspecified; Z79.51 Long term (current) use of inhaled steroids; Z79.52 Long term (current) use of systemic steroids; Z79.82 Long term (current) use of aspirin; Z79.84 Long term (current) use of oral hypoglycemic drugs; Z79.899 Other long term (current) drug therapy; Z80.49 Family history of malignant neoplasm of other genital organs; Z86.718 Personal history of other venous thrombosis and embolism; Z92.21 Personal history of antineoplastic chemotherapy
CPT/HCPCS: 85007; G0463

== ENCOUNTER → 2022-01-14 | Outpatient (CLI) | payer MEDICAID, MEDICARE ==
[~2022-01-14] MED LIST changes: -ASCO500T PO; -OXYC-517 PO; -ROXI1TAB2 PO; -SUCR1TAB56 PO
== END ==
LOC: M LABSMTC 10:17
PROVIDERS: ATTEND Anesthesiology
DX: Z01.812 Encounter for preprocedural laboratory examination (principal); Z20.822 Contact with and (suspected) exposure to COVID-19

== ENCOUNTER → 2022-01-14 | Outpatient (CLI) | payer MEDICAID, MEDICARE ==
[~2022-01-14] MED LIST changes: +ASCO500T PO; +ROXI1TAB2 PO
== END ==
LOC: M WHC 09:50
PROVIDERS: ATTEND Surgery
DX: Z01.812 Encounter for preprocedural laboratory examination (principal); Z20.822 Contact with and (suspected) exposure to COVID-19; C50.212 Malignant neoplasm of upper-inner quadrant of left female breast; Z92.21 Personal history of antineoplastic chemotherapy
CPT/HCPCS: 76642; 77065; 87635; G0279

== ENCOUNTER 2022-01-19 09:26 | Observation (INO) | payer MEDICAID, MEDICARE ==
[~2022-01-19] VITALS: Ht 160 cm; Wt 127.0 kg
[~2022-01-19 09:26] MED LIST changes: -ASCO500T PO; +HEPARIN SOD (PORCINE) 5000UNITS/ML 1ML VIAL/SYRINGE SQ ONE; -ROXI1TAB2 PO
[2022-01-19] MEDS ORDERED: LR 1,000 ML IV SCH ×3 (10:05→18:50)
[2022-01-19] MEDS ORDERED: ceFAZolin SOD 2 GM in IV 1 EA IV ONE (11:00)
[2022-01-19] MEDS ORDERED: ceFAZolin SOD 1 GM in D5W MINI-BAG PLUS 50 ML IV ONE (11:00)
[2022-01-19] MEDS ORDERED: propofoL 200 MG/20 ML VIAL As Ordered ONE (13:06)
[2022-01-19] MEDS ORDERED: LIDOCAINE 2% 100MG/5ML SDV (FOR ANES.) As Ordered ONE (13:06)
[2022-01-19] MEDS ORDERED: MIDAZOLAM INJ 2MG/2ML VIAL (J2250 PER 1MG) As Ordered ONE (13:06)
[2022-01-19] MEDS ORDERED: ROCURONIUM BROMIDE 50 MG/5 ML VIAL As Ordered ONE (13:06)
[2022-01-19] MEDS ORDERED: SUGAMMADEX SODIUM 500 MG/5 ML VIAL (BRIDION) As Ordered ONE (13:06)
[2022-01-19] MEDS ORDERED: ONDANSETRON 4MG 2ML VIAL As Ordered ONE (13:06)
[2022-01-19] MEDS ORDERED: dexameTHASONE 4 MG/ML 1ML VIAL (J1100 PER 1MG) As Ordered ONE (13:06)
[2022-01-19] MEDS ORDERED: fentaNYL 250 MCG/5 ML INJECTION As Ordered ONE (13:06)
[2022-01-19] MEDS ORDERED: METOCLOPRAMIDE INJ 10MG/2ML VIAL (J2765 PER 1) As Ordered ONE (13:06)
[2022-01-19] MEDS ORDERED: FURO40TA2 PO (14:05)
[2022-01-19] MEDS ORDERED: PANT40TA29 PO (14:05)
[2022-01-19] MEDS ORDERED: ASCO500T PO (14:05)
[2022-01-19] MEDS ORDERED: LOMO2.5T PO (14:11)
[2022-01-19] MEDS ORDERED: HOME MED LIST COMPLETE! XX SCH (14:15)
[2022-01-19] MEDS ORDERED: BUPIVACAINE HCL 0.25% 10ML VIAL As Ordered ONE (14:27)
[2022-01-19] MEDS ORDERED: BUPIVACAINE LIPOSOME/PF 1.3% 20ML VIAL (13.3MG/ML)(EXPAREL) As Ordered ONE (14:27)
[2022-01-19] MEDS ORDERED: LIDOCAINE 1% MDV 20ML VIAL As Ordered ONE (15:05)
[2022-01-19] MEDS ORDERED: ePHEDrine SULFATE 25 MG/5 ML(5MG/ML) SYRINGE As Ordered ONE (15:21)
[2022-01-19] MEDS ORDERED: VASOPRESSIN INJ 20 UNITS/ML VIAL As Ordered ONE (15:21)
[2022-01-19] MEDS ORDERED: ACETAMINOPHEN 1000MG 100ML IV BTL (OFIRMEV) (J0131 PER 10MG) As Ordered ONE (15:22)
[2022-01-19] MEDS ORDERED: METHYLENE BLUE 0.5% (5MG/ML) 10 ML AMP (PROVAYBLUE) As Ordered ONE (15:53)
[2022-01-19] MEDS ORDERED: PHENYLEPHRINE 10MG/ML 1ML VIAL (J2370 PER 1) As Ordered ONE (16:02)
[2022-01-19] MEDS ORDERED: GLYCOPYRROLATE INJ 0.2 MG/ML 2 ML VIAL As Ordered ONE (16:31)
[2022-01-19] MEDS ORDERED: MEPERIDINE INJ 25 MG/ML VIAL (J2175) IV PRN (17:50)
[2022-01-19] MEDS ORDERED: oxyCODONE 5MG TAB PO PRN ×2 (17:50→18:50)
[2022-01-19] MEDS ORDERED: ONDANSETRON 4MG 2ML VIAL IV PRN ×2 (17:50→18:50)
[2022-01-19] MEDS ORDERED: ceFAZolin SOD 3 GM in D5W MINI-BAG PLUS 50 ML IV SCH (18:50)
[2022-01-19] MEDS ORDERED: MORPHINE 2 MG/ML 1ML VIAL IV PRN (18:50)
[2022-01-19] MEDS: fentaNYL 100 MCG/2 ML INJECTION IV PRN ×4 (18:56→19:29)
[2022-01-19] MEDS ORDERED: GLUCAGON INJ 1MG VIAL SC PRN (19:35)
[2022-01-19] MEDS ORDERED: ALBUTEROL SULFATE 2.5 MG/0.5 ML INH NEB SOLN NEB PRN (19:35)
[2022-01-19] MEDS ORDERED: GLUCOSE 4GM CHEW TABLET PO PRN (19:35)
[2022-01-19] MEDS ORDERED: DEXTROSE 50% 50 ML SYRINGE IV PRN (19:35)
[2022-01-19] MEDS ORDERED: PILL CUTTER 1 EACH XX PRN (19:55)
[2022-01-19 20:00] VITALS: BP 108/48
[2022-01-19 20:30] VITALS: BP 103/49
[2022-01-19] MEDS ORDERED: INSULIN LISPRO (NovoLOG) PER UNIT SC SCH (21:00)
[2022-01-19] MEDS ORDERED: ARIPiprazole 2 MG TAB PO SCH (21:00)
[2022-01-19] MEDS ORDERED: traZODone 50 MG TAB PO SCH (21:00)
[2022-01-19] MEDS ORDERED: ROSUVASTATIN 10 MG TAB (CRESTOR) PO SCH (21:00)
[2022-01-19 21:30] VITALS: BP 106/49
[2022-01-19] MEDS: HEPARIN SOD (PORCINE) 5000UNITS/ML 1ML VIAL/SYRINGE SQ SCH (21:43)
[2022-01-19] MEDS: ACETAMINOPHEN TAB 650MG DOSE (2X325MG) PO PRN (21:44)
[2022-01-19 22:30] VITALS: BP 91/46
[2022-01-19] MEDS: ceFAZolin SOD 2 GM in IV 1 EA IV SCH (22:38)
[2022-01-19] MEDS: ceFAZolin SOD 1 GM in D5W MINI-BAG PLUS 50 ML IV SCH (22:38)
[2022-01-19 23:14] VITALS: O2SAT 94
[2022-01-19 23:30] VITALS: BP 134/63
[2022-01-20 00:30] VITALS: BP 132/60
[2022-01-20 02:00] VITALS: BP 134/61
[2022-01-20 06:00] VITALS: BP 156/70; O2SAT 88
[2022-01-20] MEDS: HEPARIN SOD (PORCINE) 5000UNITS/ML 1ML VIAL/SYRINGE SQ SCH ×2 (06:34→13:36)
[2022-01-20] MEDS: ceFAZolin SOD 1 GM in D5W MINI-BAG PLUS 50 ML IV SCH ×2 (06:34→14:15)
[2022-01-20 07:29] LABS: BASO % 0.3 % (0.0-1.0); HEMATOCRIT 31.9 % (36.0-47.0); HEMOGLOBIN 9.3 g/dl (12.0-15.5); LYMPH # 0.4 10^3/uL (1.5-5.0); LYMPH % 2.8 % (24.0-44.0); MEAN CORPUSCULAR HGB CONC 29.2 g/dl (32.0-36.5); MEAN CORPUSCULAR VOLUME 96.1 fl (80.0-96.0); MONO # 0.4 10^3/uL (0.0-0.8); MONO % 3.2 % (2.0-8.0); NEUTROPHILS # 12.1 10^3/uL (1.5-8.5); NEUTROPHILS % 91.7 % (36.0-66.0); PLATELET COUNT, AUTOMATED 151 10^3/uL (150-450); RED BLOOD COUNT 3.32 10^6/uL (4.00-5.40); WHITE BLOOD COUNT 13.2 10^3/uL (4.0-10.0)
[2022-01-20 07:53] LABS: HEMOGLOBIN A1c 6.2 %
[2022-01-20] MEDS ORDERED: ASPIRIN 81MG ENTERIC TABLET PO SCH (09:00)
[2022-01-20] MEDS ORDERED: buPROPion (WELLBUTRIN SR) 100 MG SR TAB PO SCH (09:00)
[2022-01-20] MEDS ORDERED: FLUoxetine 20MG CAP PO SCH (09:00)
[2022-01-20] MEDS ORDERED: ASCORBIC ACID 500 MG TAB PO SCH (09:00)
[2022-01-20] MEDS ORDERED: FUROSEMIDE 40 MG TAB PO SCH (09:00)
[2022-01-20] MEDS ORDERED: METOPROLOL SUCC (TopROL XL) 50MG **XL** TAB PO SCH (09:00)
[2022-01-20] MEDS ORDERED: MULTIVITAMINS/MINERALS THERAP 1 TAB PO SCH (09:00)
[2022-01-20] MEDS ORDERED: FUROSEMIDE 40MG/4ML VIAL (J1940) IV ONE (09:00)
[2022-01-20 09:05] LABS: BLOOD UREA NITROGEN 16 MG/DL (7-18); CALCIUM LEVEL 9.2 MG/DL (8.8-10.2); CARBON DIOXIDE LEVEL 30 MEQ/L (21-32); CHLORIDE LEVEL 106 MEQ/L (98-107); CREATININE FOR GFR 1.43 MG/DL (0.55-1.30); FERRITIN 253 NG/ML (8-252); GLOMERULAR FILTRATION RATE 38.7 (>45); GLUCOSE, FASTING 167 MG/DL (70-100); IRON (FE) 48 UG/DL (50-170); NT-PRO BNP 738 PG/ML (<125); PERCENT SATURATION 20.2 % (13.2-45.0); POTASSIUM SERUM 4.8 MEQ/L (3.5-5.1); SODIUM LEVEL 141 MEQ/L (136-145); TOTAL IRON BINDING CAPACITY 238 UG/DL (250-450)
[2022-01-20 09:47] LABS: VITAMIN B12 LEVEL > 2000 PG/ML (247-911)
[2022-01-20] MEDS: ACETAMINOPHEN TAB 650MG DOSE (2X325MG) PO PRN (09:57)
[2022-01-20] MEDS: ceFAZolin SOD 2 GM in IV 1 EA IV SCH ×2 (09:59→14:15)
[2022-01-20 10:00] VITALS: BP 147/63
[2022-01-20] MEDS: INSULIN LISPRO (NovoLOG) PER UNIT SC SCH ×2 (10:00→13:02)
[2022-01-20 10:01] VITALS: BP 156/70
[2022-01-20] MEDS ORDERED: ROXI1TAB2 PO (12:26)
[2022-01-20 14:00] VITALS: BP 142/65
[2022-01-20] MEDS ORDERED: traZODone 50 MG TAB PO SCH (21:00)
== END 2022-01-20 17:25 | disposition home or self-care (01) ==
LOC: M SDC 09:26 → M MS5PR 09:27 → M ED INP 19:51 → M MS5PR 19:59
PROVIDERS: ADMIT Surgery; ATTEND Surgery
DX: C50.912 Malignant neoplasm of unspecified site of left female breast (principal); I97.88 Other intraoperative complications of the circulatory system, not elsewhere classified; I95.9 Hypotension, unspecified; R60.0 Localized edema; E78.5 Hyperlipidemia, unspecified; I12.9 Hypertensive chronic kidney disease with stage 1 through stage 4 chronic kidney disease, or unspecified chronic kidney disease; N18.9 Chronic kidney disease, unspecified; J45.909 Unspecified asthma, uncomplicated; E66.9 Obesity, unspecified; Z85.828 Personal history of other malignant neoplasm of skin; D64.9 Anemia, unspecified; F32.A Depression, unspecified; Z79.84 Long term (current) use of oral hypoglycemic drugs; K21.9 Gastro-esophageal reflux disease without esophagitis; Z79.82 Long term (current) use of aspirin; Z79.899 Other long term (current) drug therapy; J30.2 Other seasonal allergic rhinitis
CPT/HCPCS: 19125; 36415; 38525; 71045; 76942; 78195; 80048; 82607; 82728; 82746; 83036; 83550; 83880; 84145; 85025; 86850; 86900; 86901; 88307; 93970; 96365; 96366; 96372; A4648; A9520; G0378; J0131; J0690; J1100; J1644; J1815; J1940; J2250; J2370; J2405; J2765; J3010; Q9968

== ENCOUNTER 2022-01-25 10:18 | Inpatient (IN) | payer MEDICARE ==
[~2022-01-25] VITALS: Ht 160 cm; Wt 129.7 kg
[~2022-01-25 10:18] MED LIST changes: +ASCO500T PO; -HEPARIN SOD (PORCINE) 5000UNITS/ML 1ML VIAL/SYRINGE SQ ONE; +ROXI1TAB2 PO
[2022-01-25] MEDS ORDERED: ONDANSETRON 4MG 2ML VIAL IV ONE (13:50)
[2022-01-25] MEDS ORDERED: KETOROLAC 30 MG/ML 1ML VIAL IV ONE (13:50)
[2022-01-25] MEDS ORDERED: NS 1,000 ML IV ONE ×2 (13:50→16:05)
[2022-01-25 14:20] LABS: BASO # 0.1 10^3/uL (0.0-0.2); BASO % 0.7 % (0.0-1.0); HEMATOCRIT 36.6 % (36.0-47.0); HEMOGLOBIN 10.6 g/dl (12.0-15.5); LYMPH # 0.6 10^3/uL (1.5-5.0); MEAN CORPUSCULAR HEMOGLOBIN 28.6 pg (27.0-33.0); MEAN CORPUSCULAR VOLUME 98.9 fl (80.0-96.0); MONO # 0.6 10^3/uL (0.0-0.8); MONO % 5.3 % (2.0-8.0); NEUTROPHILS # 9.4 10^3/uL (1.5-8.5); NEUTROPHILS % 87.6 % (36.0-66.0); PLATELET COUNT, AUTOMATED 210 10^3/uL (150-450); WHITE BLOOD COUNT 10.7 10^3/uL (4.0-10.0)
[2022-01-25] MEDS ORDERED: ISOVUE-370 76% 100ML VIAL As Ordered ONE (14:27)
[2022-01-25 14:58] LABS: RSV AMPLIFICATION NEGATIVE (NEGATIVE)
[2022-01-25 15:08] LABS: BILIRUBIN,DIRECT 0.2 MG/DL (0.0-0.2); BILIRUBIN,TOTAL 0.5 MG/DL (0.2-1.0); CALCIUM LEVEL 9.6 MG/DL (8.8-10.2); CREATININE FOR GFR 1.48 MG/DL (0.55-1.30); GLOMERULAR FILTRATION RATE 37.2 (>45); POTASSIUM SERUM 3.9 MEQ/L (3.5-5.1); TOTAL PROTEIN 5.6 GM/DL (6.4-8.2)
[2022-01-25] MEDS ORDERED: GLUCOSE 4GM CHEW TABLET PO PRN (18:05)
[2022-01-25] MEDS ORDERED: DEXTROSE 50% 50 ML SYRINGE IV PRN (18:05)
[2022-01-25] MEDS ORDERED: GLUCAGON INJ 1MG VIAL SC PRN (18:05)
[2022-01-25] MEDS ORDERED: SUCR1TAB56 PO (18:17)
[2022-01-25] MEDS ORDERED: ONDA-84 PO (18:17)
[2022-01-25] MEDS ORDERED: MONT10TA97 PO (18:17)
[2022-01-25] MEDS ORDERED: OXYC-517 PO (18:17)
[2022-01-25] MEDS ORDERED: HOME MED LIST COMPLETE! XX SCH (18:20)
[2022-01-25] MEDS: INSULIN LISPRO (NovoLOG) PER UNIT SC SCH (19:42)
[2022-01-25] MEDS: D5W/0.45% SODIUM CHLORIDE 1,000 ML IV SCH (19:55)
[2022-01-25] MEDS: ONDANSETRON 4MG 2ML VIAL IV SCH (20:55)
[2022-01-26] MEDS: HEPARIN SOD (PORCINE) 5000UNITS/ML 1ML VIAL/SYRINGE SC SCH ×4 (00:20→21:50)
[2022-01-26] MEDS: ONDANSETRON 4MG 2ML VIAL IV SCH ×2 (03:42→08:56)
[2022-01-26 04:00] VITALS: BP 121/59
[2022-01-26] MEDS: INSULIN LISPRO (NovoLOG) PER UNIT SC SCH ×5 (06:00→21:00)
[2022-01-26 07:10] LABS: HEMATOCRIT 31.8 % (36.0-47.0); HEMOGLOBIN 9.1 g/dl (12.0-15.5); MEAN CORPUSCULAR HEMOGLOBIN 28.2 pg (27.0-33.0); MEAN CORPUSCULAR HGB CONC 28.6 g/dl (32.0-36.5); MEAN CORPUSCULAR VOLUME 98.5 fl (80.0-96.0); PLATELET COUNT, AUTOMATED 191 10^3/uL (150-450); RED BLOOD COUNT 3.23 10^6/uL (4.00-5.40); WHITE BLOOD COUNT 7.7 10^3/uL (4.0-10.0)
[2022-01-26 07:45] LABS: CALCIUM LEVEL 8.6 MG/DL (8.8-10.2); CREATININE FOR GFR 1.33 MG/DL (0.55-1.30); GLOMERULAR FILTRATION RATE 42.1 (>45); MAGNESIUM LEVEL 2.1 MG/DL (1.8-2.4); PHOSPHORUS LEVEL 3.2 MG/DL (2.5-4.9); POTASSIUM SERUM 3.5 MEQ/L (3.5-5.1)
[2022-01-26 08:00] VITALS: BP 146/66
[2022-01-26] MEDS: D5W/0.45% SODIUM CHLORIDE 1,000 ML IV SCH (08:56)
[2022-01-26] MEDS ORDERED: ONDANSETRON 4MG 2ML VIAL IV PRN (10:45)
[2022-01-26 12:10] VITALS: BP 131/63
[2022-01-26 16:00] VITALS: BP 141/65
[2022-01-26] MEDS ORDERED: PILL CUTTER 1 EACH XX PRN (17:15)
[2022-01-26 20:00] VITALS: BP 131/61
[2022-01-26] MEDS: SUCRALFATE 1 GM TAB PO SCH (21:50)
[2022-01-26] MEDS: ARIPiprazole 2 MG TAB PO SCH (21:50)
[2022-01-26] MEDS: ROSUVASTATIN 10 MG TAB (CRESTOR) PO SCH (21:50)
[2022-01-26] MEDS: MONTELUKAST 10 MG TAB PO SCH (21:50)
[2022-01-27 04:00] VITALS: BP 167/72
[2022-01-27 06:07] LABS: BASO % 0.5 % (0.0-1.0); EOS % 0.2 % (0.0-3.0); HEMATOCRIT 32.7 % (36.0-47.0); HEMOGLOBIN 9.5 g/dl (12.0-15.5); LYMPH # 0.5 10^3/uL (1.5-5.0); LYMPH % 8.6 % (24.0-44.0); MEAN CORPUSCULAR HEMOGLOBIN 28.5 pg (27.0-33.0); MEAN CORPUSCULAR HGB CONC 29.1 g/dl (32.0-36.5); MEAN CORPUSCULAR VOLUME 98.2 fl (80.0-96.0); MONO # 0.5 10^3/uL (0.0-0.8); MONO % 8.5 % (2.0-8.0); NEUTROPHILS # 4.9 10^3/uL (1.5-8.5); NEUTROPHILS % 81.7 % (36.0-66.0); PLATELET COUNT, AUTOMATED 199 10^3/uL (150-450); RED BLOOD COUNT 3.33 10^6/uL (4.00-5.40)
[2022-01-27] MEDS: HEPARIN SOD (PORCINE) 5000UNITS/ML 1ML VIAL/SYRINGE SC SCH ×3 (06:25→22:06)
[2022-01-27 06:34] LABS: CALCIUM LEVEL 9.3 MG/DL (8.8-10.2); CREATININE FOR GFR 1.19 MG/DL (0.55-1.30); GLOMERULAR FILTRATION RATE 47.9 (>45); POTASSIUM SERUM 3.7 MEQ/L (3.5-5.1)
[2022-01-27] MEDS: INSULIN LISPRO (NovoLOG) PER UNIT SC SCH ×4 (07:30→20:36)
[2022-01-27 08:00] VITALS: BP 124/56
[2022-01-27] MEDS ORDERED: LOPERAMIDE 2 MG CAPLET PO PRN (09:00)
[2022-01-27] MEDS ORDERED: FUROSEMIDE 40 MG TAB PO SCH (09:00)
[2022-01-27] MEDS: buPROPion (WELLBUTRIN SR) 100 MG SR TAB PO SCH (09:28)
[2022-01-27] MEDS: MULTIVITAMINS/MINERALS THERAP 1 TAB PO SCH (09:28)
[2022-01-27] MEDS: SUCRALFATE 1 GM TAB PO SCH ×2 (09:29→20:35)
[2022-01-27] MEDS: METOPROLOL SUCC (TopROL XL) 50MG **XL** TAB PO SCH (09:29)
[2022-01-27] MEDS: ASPIRIN 81MG ENTERIC TABLET PO SCH (09:29)
[2022-01-27] MEDS: ASCORBIC ACID 500 MG TAB PO SCH (09:29)
[2022-01-27] MEDS: FLUoxetine 20MG CAP PO SCH (09:29)
[2022-01-27] MEDS ORDERED: ACETAMINOPHEN 325 MG TAB PO PRN (10:10)
[2022-01-27 12:55] VITALS: BP 126/58
[2022-01-27 19:41] VITALS: BP 127/60
[2022-01-27] MEDS: MONTELUKAST 10 MG TAB PO SCH (20:35)
[2022-01-27] MEDS: ROSUVASTATIN 10 MG TAB (CRESTOR) PO SCH (20:35)
[2022-01-27] MEDS: ARIPiprazole 2 MG TAB PO SCH (20:35)
[2022-01-28 03:58] VITALS: BP 154/68
[2022-01-28 05:38] LABS: HEMATOCRIT 31.9 % (36.0-47.0); HEMOGLOBIN 9.3 g/dl (12.0-15.5); MEAN CORPUSCULAR HEMOGLOBIN 28.3 pg (27.0-33.0); MEAN CORPUSCULAR HGB CONC 29.2 g/dl (32.0-36.5); PLATELET COUNT, AUTOMATED 216 10^3/uL (150-450); RED BLOOD COUNT 3.29 10^6/uL (4.00-5.40); WHITE BLOOD COUNT 6.7 10^3/uL (4.0-10.0)
[2022-01-28 06:11] LABS: CALCIUM LEVEL 9.3 MG/DL (8.8-10.2); CREATININE FOR GFR 1.22 MG/DL (0.55-1.30); GLOMERULAR FILTRATION RATE 46.5 (>45)
[2022-01-28] MEDS: HEPARIN SOD (PORCINE) 5000UNITS/ML 1ML VIAL/SYRINGE SC SCH ×2 (06:29→13:17)
[2022-01-28] MEDS: INSULIN LISPRO (NovoLOG) PER UNIT SC SCH ×2 (07:50→13:17)
[2022-01-28 08:00] VITALS: BP 138/63
[2022-01-28] MEDS ORDERED: FUROSEMIDE 40 MG TAB PO SCH (09:00)
[2022-01-28] MEDS: SUCRALFATE 1 GM TAB PO SCH (09:25)
[2022-01-28] MEDS: MULTIVITAMINS/MINERALS THERAP 1 TAB PO SCH (09:25)
[2022-01-28] MEDS: ASPIRIN 81MG ENTERIC TABLET PO SCH (09:26)
[2022-01-28] MEDS: ASCORBIC ACID 500 MG TAB PO SCH (09:26)
[2022-01-28] MEDS: buPROPion (WELLBUTRIN SR) 100 MG SR TAB PO SCH (09:26)
[2022-01-28] MEDS: METOPROLOL SUCC (TopROL XL) 50MG **XL** TAB PO SCH (09:27)
[2022-01-28] MEDS: FLUoxetine 20MG CAP PO SCH (09:27)
[2022-01-28] MEDS ORDERED: LOPE2CA PO (09:43)
== END 2022-01-28 16:13 | disposition home health service (06) | DRG 389 ==
LOC: M ED 10:18 → M ED INP 17:19 → M PCU 01-26 03:13 → M ED INP 01-27 16:49
PROVIDERS: ADMIT Internal Medicine; ATTEND Internal Medicine
DX: K56.7 Ileus, unspecified (principal); I50.32 Chronic diastolic (congestive) heart failure; I13.0 Hypertensive heart and chronic kidney disease with heart failure and stage 1 through stage 4 chronic kidney disease, or unspecified chronic kidney disease; Z68.42 Body mass index [BMI] 45.0-49.9, adult; E66.9 Obesity, unspecified; E11.649 Type 2 diabetes mellitus with hypoglycemia without coma; D63.1 Anemia in chronic kidney disease; E11.22 Type 2 diabetes mellitus with diabetic chronic kidney disease; N18.9 Chronic kidney disease, unspecified; K21.9 Gastro-esophageal reflux disease without esophagitis; E78.5 Hyperlipidemia, unspecified; R19.7 Diarrhea, unspecified; Z92.21 Personal history of antineoplastic chemotherapy; D72.829 Elevated white blood cell count, unspecified; Z85.3 Personal history of malignant neoplasm of breast; Z79.899 Other long term (current) drug therapy; Z79.82 Long term (current) use of aspirin; J45.909 Unspecified asthma, uncomplicated; F32.A Depression, unspecified; F41.9 Anxiety disorder, unspecified

== ENCOUNTER → 2022-02-02 | Outpatient (CLI) | payer MEDICARE ==
[~2022-02-02] MED LIST changes: +LOPE2CA PO; +OXYC-517 PO; +SUCR1TAB56 PO
== END ==
LOC: M ONCR 09:37
PROVIDERS: ATTEND General Practice
DX: C50.212 Malignant neoplasm of upper-inner quadrant of left female breast (principal)

== ENCOUNTER 2022-03-03 09:43 | Outpatient (RCR) | payer MEDICARE | END 2022-03-03 23:59 | disposition home or self-care (01) | LOC: M ONCR 09:43 | PROVIDERS: ATTEND General Practice | DX: C50.212 Malignant neoplasm of upper-inner quadrant of left female breast (principal) ==

== ENCOUNTER 2022-03-16 08:53 | Outpatient (RCR) | payer MEDICARE ==
[2022-04-07] MEDS ORDERED: ANAS1TAB2 PO (12:20)
== END 2022-04-03 ==
LOC: M ONCR 08:53
PROVIDERS: ATTEND General Practice
DX: C50.212 Malignant neoplasm of upper-inner quadrant of left female breast (principal)

== ENCOUNTER → 2022-04-26 | Outpatient (CLI) | payer MEDICAID, MEDICARE ==
[~2022-04-26] MED LIST changes: +ANAS1TAB2 PO
== END ==
LOC: M WHC 10:40
PROVIDERS: ATTEND Specialist
DX: M85.851 Other specified disorders of bone density and structure, right thigh (principal); M81.0 Age-related osteoporosis without current pathological fracture; C50.919 Malignant neoplasm of unspecified site of unspecified female breast

== ENCOUNTER → 2022-06-01 | Outpatient (POV) | payer MEDICARE, MEDICAID ==
[~2022-06-01] VITALS: Ht 162.6 cm; Wt 120.4 kg
[2022-06-01 09:35] VITALS: BP 175/77
== END ==
LOC: M IRPOV 08:57
PROVIDERS: ATTEND Radiology Diagnostic Radiology
DX: T82.598A Other mechanical complication of other cardiac and vascular devices and implants, initial encounter (principal); J30.89 Other allergic rhinitis; Z91.048 Other nonmedicinal substance allergy status

== ENCOUNTER 2022-06-03 10:53 | Outpatient (CLI) | payer MEDICARE, MEDICAID ==
[~2022-06-03] VITALS: Ht 160 cm; Wt 130.0 kg
[~2022-06-03 10:53] MED LIST changes: +SODIUM CHLORIDE 0.9% INJ 10 ML SYR IV PRN; +SODIUM CHLORIDE 0.9% INJ 10 ML SYR IV SCH
[2022-06-03] MEDS ORDERED: ALTEPLASE 2MG/2ML VIAL XX PRN (11:00)
[2022-06-03 11:06] VITALS: BP 155/64
[2022-06-03 12:42] VITALS: BP 138/63
== END 2022-06-03 12:45 | disposition home or self-care (01) ==
LOC: M INFU 10:53
PROVIDERS: ATTEND Radiology Diagnostic Radiology
DX: T82.868A Thrombosis due to vascular prosthetic devices, implants and grafts, initial encounter (principal)
CPT/HCPCS: 36593; 96372; J2997

== ENCOUNTER → 2022-07-22 | Outpatient (REF) | payer MEDICARE, MEDICAID, OTHER ==
[~2022-07-22] MED LIST changes: -SODIUM CHLORIDE 0.9% INJ 10 ML SYR IV PRN; -SODIUM CHLORIDE 0.9% INJ 10 ML SYR IV SCH
== END ==
LOC: M LAB REF 16:28
PROVIDERS: ATTEND Nurse Practitioner Adult Health
DX: N39.0 Urinary tract infection, site not specified (principal)

== ENCOUNTER → 2022-09-13 | Outpatient (CLI) | payer OTHER, MEDICAID ==
[~2022-09-13] VITALS: Ht 160 cm; Wt 122.5 kg
[~2022-09-13] MED LIST changes: +GABA-282 PO; +LIDOCAINE 1% MDV 20ML VIAL As Ordered ONE; +MIDAZOLAM INJ 2MG/2ML VIAL As Ordered ONE; +NS 1,000 ML IV SCH; +PROT1TAB2 PO; -ROSU20TA5 PO; +ROSU20TA61 PO; +ceFAZolin 2 GM/D5W 50 ML IV BAG As Ordered ONE; +ceFAZolin SOD 2 GM in IV 1 EA IV ONE; +diphenhydrAMINE 50MG/ML VIAL As Ordered ONE; +fentaNYL 100 MCG/2 ML INJECTION As Ordered ONE
[2022-09-13 07:35] VITALS: TEMP 97
[2022-09-13 10:30] VITALS: BP 143/64; O2SAT 96
== END ==
LOC: M IRPRO 07:18
PROVIDERS: ATTEND Radiology Diagnostic Radiology
DX: Z45.2 Encounter for adjustment and management of vascular access device (principal); C50.911 Malignant neoplasm of unspecified site of right female breast; Z91.048 Other nonmedicinal substance allergy status; Z79.82 Long term (current) use of aspirin
CPT/HCPCS: 36590; 99152; J0690; J1200; J2250; J3010

== ENCOUNTER → 2022-09-16 | Outpatient (CLI) | payer OTHER, MEDICAID ==
[~2022-09-16] MED LIST changes: -LIDOCAINE 1% MDV 20ML VIAL As Ordered ONE; -MIDAZOLAM INJ 2MG/2ML VIAL As Ordered ONE; -NS 1,000 ML IV SCH; -ceFAZolin 2 GM/D5W 50 ML IV BAG As Ordered ONE; -ceFAZolin SOD 2 GM in IV 1 EA IV ONE; -diphenhydrAMINE 50MG/ML VIAL As Ordered ONE; -fentaNYL 100 MCG/2 ML INJECTION As Ordered ONE
== END ==
LOC: M ONCR 11:00
PROVIDERS: ATTEND General Practice
DX: C50.212 Malignant neoplasm of upper-inner quadrant of left female breast (principal); B02.9 Zoster without complications; N64.89 Other specified disorders of breast; J30.89 Other allergic rhinitis; Z71.2 Person consulting for explanation of examination or test findings; Z79.811 Long term (current) use of aromatase inhibitors; Z79.82 Long term (current) use of aspirin; Z79.84 Long term (current) use of oral hypoglycemic drugs; Z79.899 Other long term (current) drug therapy; Z91.048 Other nonmedicinal substance allergy status; Z92.21 Personal history of antineoplastic chemotherapy; Z92.3 Personal history of irradiation; Z98.890 Other specified postprocedural states

== ENCOUNTER → 2022-09-20 | Outpatient (CLI) | payer OTHER, MEDICAID | LOC: M WHC 13:28 | PROVIDERS: ATTEND Nurse Practitioner Women's Health | DX: C50.912 Malignant neoplasm of unspecified site of left female breast (principal) ==

== ENCOUNTER → 2022-09-22 | Outpatient (REF) | payer OTHER, MEDICAID | LOC: M LAB REF 16:23 | PROVIDERS: ATTEND Nurse Practitioner Adult Health | DX: F32.9 Major depressive disorder, single episode, unspecified (principal) ==

== ENCOUNTER → 2022-09-28 | Outpatient (POV) | payer OTHER, MEDICAID ==
[~2022-09-28] VITALS: Ht 160 cm; Wt 123.1 kg
[2022-09-28 10:10] VITALS: BP 121/71; O2SAT 97
== END ==
LOC: M IRPOV 09:56
PROVIDERS: ATTEND Radiology Diagnostic Radiology
DX: Z45.2 Encounter for adjustment and management of vascular access device (principal); Z91.048 Other nonmedicinal substance allergy status

== ENCOUNTER 2022-10-29 09:30 | Emergency (ER) | payer OTHER, MEDICAID ==
[~2022-10-29] VITALS: Ht 160 cm; Wt 122.4 kg
[2022-10-29] MEDS ORDERED: methylPREDNISolone 125MG 2ML VIAL IV ONE (09:45)
[2022-10-29] MEDS ORDERED: ALBUTEROL SULFATE 2.5MG/0.5ML INH NEB SOLN INH ONE (09:45)
[2022-10-29] MEDS ORDERED: IPRATROPIUM 0.5MG/ALBUTEROL 2.5MG INH SOL UD 3ML (DUONEB) NEB ONE (09:45)
[2022-10-29 10:15] LABS: BASO % 0.6 % (0.0-1.0); EOS # 0.2 10^3/uL (0.0-0.5); EOS % 3.1 % (0.0-3.0); HEMATOCRIT 43.7 % (36.0-47.0); HEMOGLOBIN 12.8 g/dl (12.0-15.5); LYMPH # 0.6 10^3/uL (1.5-5.0); LYMPH % 7.9 % (24.0-44.0); MEAN CORPUSCULAR HEMOGLOBIN 26.3 pg (27.0-33.0); MEAN CORPUSCULAR HGB CONC 29.3 g/dl (32.0-36.5); MEAN CORPUSCULAR VOLUME 89.7 fl (80.0-96.0); MONO # 0.5 10^3/uL (0.0-0.8); MONO % 7.2 % (2.0-8.0); NEUTROPHILS # 5.8 10^3/uL (1.5-8.5); NEUTROPHILS % 81.1 % (36.0-66.0); PLATELET COUNT, AUTOMATED 153 10^3/uL (150-450); RED BLOOD COUNT 4.87 10^6/uL (4.00-5.40); WHITE BLOOD COUNT 7.1 10^3/uL (4.0-10.0)
[2022-10-29 10:37] LABS: CK-MB VALUE MASS < 1.0 NG/ML (<3.6)
[2022-10-29 10:39] LABS: CPK CREATINE PHOSPHOKINASE 40 U/L (34-145)
[2022-10-29 10:40] LABS: ALBUMIN 3.4 G/DL (3.2-5.2); ALKALINE PHOSPHATASE 49 U/L (46-116); ALT/SGPT 20 U/L (7.0-40); AST/SGOT 9 U/L (<34); BILIRUBIN,DIRECT 0.1 MG/DL (<0.4); BILIRUBIN,TOTAL 0.4 MG/DL (0.3-1.2); BLOOD UREA NITROGEN 24 MG/DL (9-23); CALCIUM LEVEL 9.5 MG/DL (8.3-10.6); CARBON DIOXIDE LEVEL 31 MMOL/L (20-31); CHLORIDE LEVEL 107 MMOL/L (98-107); CREATININE FOR GFR 1.29 MG/DL (0.55-1.30); GLOMERULAR FILTRATION RATE 43.6 (>45); GLUCOSE, FASTING 86 MG/DL (74-106); POTASSIUM SERUM 4.3 MMOL/L (3.5-5.1); SODIUM LEVEL 144 MMOL/L (136-145); TOTAL PROTEIN 6.1 G/DL (5.7-8.2)
[2022-10-29 10:41] LABS: THYROXINE (T4) 6.5 UG/DL (4.5-10.9)
[2022-10-29 10:42] LABS: THYROID STIMULATING HORMONE 3.219 uIU/ML (0.55-4.78)
[2022-10-29 11:28] LABS: CK-MB VALUE MASS < 1.0 NG/ML (<3.6)
[2022-10-29 11:34] LABS: CPK CREATINE PHOSPHOKINASE 39 U/L (34-145); MB/CK RELATIVE INDEX 2.56 (< OR =4)
[2022-10-29] MEDS ORDERED: METOPROLOL SUCC (TopROL XL) 50MG **XL** TAB PO ONE (11:45)
[2022-10-29 11:55] VITALS: BP 197/82
[2022-10-29] MEDS ORDERED: PRED20TA PO (12:43)
[2022-10-29 13:45] VITALS: BP 140/80; TEMP 96.9; O2SAT 93
== END 2022-10-29 13:47 | disposition home or self-care (01) ==
LOC: M ED 09:30
DX: J45.901 Unspecified asthma with (acute) exacerbation (principal); I10 Essential (primary) hypertension; I44.4 Left anterior fascicular block; E11.9 Type 2 diabetes mellitus without complications; Z86.79 Personal history of other diseases of the circulatory system; Z86.711 Personal history of pulmonary embolism; Z79.52 Long term (current) use of systemic steroids; Z79.891 Long term (current) use of opiate analgesic; Z79.899 Other long term (current) drug therapy
CPT/HCPCS: 71045; 80048; 80076; 82550; 82553; 83605; 83880; 84436; 84443; 84484; 85025; 87040; 87486; 87581; 87633; 87798; 93005; 93041; 94640; 94760; 96374; 99285; J2930

== ENCOUNTER 2022-11-20 06:01 | Inpatient (IN) | payer OTHER, MEDICAID ==
[~2022-11-20] VITALS: Ht 160 cm; Wt 125.6 kg
[~2022-11-20 06:01] MED LIST changes: +PRED20TA PO
[2022-11-20] MEDS ORDERED: MORPHINE 2 MG/ML 1ML VIAL IV ONE (07:00)
[2022-11-20] MEDS ORDERED: ONDANSETRON 4MG 2ML VIAL IV ONE (07:00)
[2022-11-20 07:03] LABS: BASO % 0.3 % (0.0-1.0); EOS # 0.1 10^3/uL (0.0-0.5); EOS % 1.3 % (0.0-3.0); HEMATOCRIT 45.5 % (36.0-47.0); HEMOGLOBIN 13.6 g/dl (12.0-15.5); LYMPH # 0.6 10^3/uL (1.5-5.0); MEAN CORPUSCULAR HEMOGLOBIN 26.3 pg (27.0-33.0); MEAN CORPUSCULAR HGB CONC 29.9 g/dl (32.0-36.5); MONO # 0.5 10^3/uL (0.0-0.8); MONO % 6.5 % (2.0-8.0); NEUTROPHILS % 83.6 % (36.0-66.0); PLATELET COUNT, AUTOMATED 211 10^3/uL (150-450); RED BLOOD COUNT 5.17 10^6/uL (4.00-5.40); WHITE BLOOD COUNT 7.1 10^3/uL (4.0-10.0)
[2022-11-20] MEDS ORDERED: NS 500 ML IV ONE (07:20)
[2022-11-20 07:24] LABS: CK-MB VALUE MASS 2.7 NG/ML (<3.6)
[2022-11-20 07:25] LABS: ALBUMIN 3.1 G/DL (3.2-5.2); BILIRUBIN,DIRECT 0.2 MG/DL (<0.4); BILIRUBIN,TOTAL 0.6 MG/DL (0.3-1.2); CALCIUM LEVEL 9.9 MG/DL (8.3-10.6); CREATININE FOR GFR 1.56 MG/DL (0.55-1.30); GLOMERULAR FILTRATION RATE 34.9 (>39); MB/CK RELATIVE INDEX 10.38 (< OR =4); POTASSIUM SERUM 4.4 MMOL/L (3.5-5.1); TOTAL PROTEIN 6.2 G/DL (5.7-8.2)
[2022-11-20] MEDS ORDERED: ISOVUE-370 76% 100ML VIAL As Ordered ONE (07:36)
[2022-11-20 08:35] LABS: RSV AMPLIFICATION NEGATIVE (NEGATIVE)
[2022-11-20 09:09] LABS: MB/CK RELATIVE INDEX 2.85 (< OR =4)
[2022-11-20] MEDS ORDERED: MED REC IN PROGRESS XX SCH (09:30)
[2022-11-20] MEDS ORDERED: ONDANSETRON 4MG 2ML VIAL IV PRN (10:10)
[2022-11-20] MEDS: LR 1,000 ML IV SCH ×2 (10:46→18:02)
[2022-11-20] MEDS ORDERED: BUDE10.7 INH (12:19)
[2022-11-20] MEDS ORDERED: BUPR-69 PO (12:19)
[2022-11-20] MEDS ORDERED: PANT-23 PO (12:19)
[2022-11-20] MEDS ORDERED: ANAS1TAB2 PO (12:19)
[2022-11-20] MEDS ORDERED: VITA100093 PO (12:23)
[2022-11-20] MEDS ORDERED: HOME MED LIST COMPLETE! XX SCH (12:25)
[2022-11-20] MEDS: MORPHINE 2 MG/ML 1ML VIAL IV PRN ×2 (13:02→14:53)
[2022-11-20 17:45] VITALS: BP 126/58; TEMP 97.7; O2SAT 93
[2022-11-20] MEDS ORDERED: ALBUTEROL 90 MCG/ACT 8GM HFA INHALER INH PRN (18:00)
[2022-11-20] MEDS: INSULIN LISPRO (NovoLOG) PER UNIT SC SCH (18:00)
[2022-11-20] MEDS: SYMBICORT 160/4.5MCG INHALER 6GM INH SCH (19:47)
[2022-11-20] MEDS ORDERED: GLUCAGON INJ 1MG VIAL SC PRN (20:15)
[2022-11-20] MEDS ORDERED: DEXTROSE 50% 50ML SYRINGE IV PRN (20:15)
[2022-11-20] MEDS ORDERED: GLUCOSE 4GM CHEW TABLET PO PRN (20:15)
[2022-11-20] MEDS: HEPARIN SOD (PORCINE) 5000UNITS/ML 1ML VIAL/SYRINGE SC SCH (20:35)
[2022-11-20] MEDS: METOPROLOL TART 25 MG TABLET PO SCH (20:35)
[2022-11-20] MEDS: PANTOPRAZOLE 40MG VIAL IV SCH (20:35)
[2022-11-20] MEDS: buPROPion 100 MG TAB PO SCH (20:53)
[2022-11-20 22:00] VITALS: BP 140/64; TEMP 97.5; O2SAT 90
[2022-11-21] MEDS: LR 1,000 ML IV SCH ×2 (02:03→09:55)
[2022-11-21 06:00] VITALS: BP 137/65; TEMP 97.2; O2SAT 95
[2022-11-21] MEDS: INSULIN LISPRO (NovoLOG) PER UNIT SC SCH ×4 (06:00→17:54)
[2022-11-21] MEDS: MORPHINE 2 MG/ML 1ML VIAL IV PRN ×2 (06:24→13:48)
[2022-11-21 06:53] LABS: BASO % 0.8 % (0.0-1.0); EOS # 0.2 10^3/uL (0.0-0.5); EOS % 4.6 % (0.0-3.0); HEMATOCRIT 38.8 % (36.0-47.0); LYMPH # 0.7 10^3/uL (1.5-5.0); LYMPH % 18.4 % (24.0-44.0); MEAN CORPUSCULAR HEMOGLOBIN 25.9 pg (27.0-33.0); MEAN CORPUSCULAR HGB CONC 28.6 g/dl (32.0-36.5); MEAN CORPUSCULAR VOLUME 90.7 fl (80.0-96.0); MONO # 0.2 10^3/uL (0.0-0.8); MONO % 5.4 % (2.0-8.0); NEUTROPHILS # 2.6 10^3/uL (1.5-8.5); NEUTROPHILS % 70.5 % (36.0-66.0); PLATELET COUNT, AUTOMATED 163 10^3/uL (150-450); RED BLOOD COUNT 4.28 10^6/uL (4.00-5.40); WHITE BLOOD COUNT 3.7 10^3/uL (4.0-10.0)
[2022-11-21 07:05] LABS: HEMOGLOBIN 11.1 g/dl (12.0-15.5)
[2022-11-21] MEDS: SYMBICORT 160/4.5MCG INHALER 6GM INH SCH ×2 (07:13→19:45)
[2022-11-21 07:23] LABS: CALCIUM LEVEL 8.7 MG/DL (8.3-10.6); CREATININE FOR GFR 1.46 MG/DL (0.55-1.30); GLOMERULAR FILTRATION RATE 37.7 (>39); POTASSIUM SERUM 3.8 MMOL/L (3.5-5.1)
[2022-11-21] MEDS: METOPROLOL TART 25 MG TABLET PO SCH ×2 (09:00→20:55)
[2022-11-21] MEDS: buPROPion 100 MG TAB PO SCH ×2 (09:19→20:54)
[2022-11-21] MEDS: HEPARIN SOD (PORCINE) 5000UNITS/ML 1ML VIAL/SYRINGE SC SCH ×2 (09:19→20:54)
[2022-11-21] MEDS: D5W/0.9% SODIUM CHLORIDE 1,000 ML IV SCH ×2 (12:26→20:56)
[2022-11-21 14:00] VITALS: BP 145/55; TEMP 97.3; O2SAT 95
[2022-11-21] MEDS: PANTOPRAZOLE 40MG VIAL IV SCH (20:55)
[2022-11-21 22:00] VITALS: BP 151/70; TEMP 97.3; O2SAT 93
[2022-11-22] MEDS: INSULIN LISPRO (NovoLOG) PER UNIT SC SCH ×5 (00:21→23:41)
[2022-11-22] MEDS ORDERED: traZODone 50 MG TAB PO ONE (00:35)
[2022-11-22] MEDS: D5W/0.9% SODIUM CHLORIDE 1,000 ML IV SCH (04:35)
[2022-11-22 06:00] VITALS: BP 138/62; TEMP 97.3; O2SAT 98
[2022-11-22 06:17] LABS: BASO % 0.8 % (0.0-1.0); EOS # 0.2 10^3/uL (0.0-0.5); EOS % 5.1 % (0.0-3.0); HEMATOCRIT 39.5 % (36.0-47.0); HEMOGLOBIN 11.1 g/dl (12.0-15.5); LYMPH # 0.7 10^3/uL (1.5-5.0); LYMPH % 17.9 % (24.0-44.0); MEAN CORPUSCULAR HEMOGLOBIN 25.8 pg (27.0-33.0); MEAN CORPUSCULAR HGB CONC 28.1 g/dl (32.0-36.5); MEAN CORPUSCULAR VOLUME 91.6 fl (80.0-96.0); MONO # 0.3 10^3/uL (0.0-0.8); MONO % 8.3 % (2.0-8.0); NEUTROPHILS # 2.5 10^3/uL (1.5-8.5); NEUTROPHILS % 67.6 % (36.0-66.0); PLATELET COUNT, AUTOMATED 163 10^3/uL (150-450); RED BLOOD COUNT 4.31 10^6/uL (4.00-5.40); WHITE BLOOD COUNT 3.8 10^3/uL (4.0-10.0)
[2022-11-22 06:30] LABS: CALCIUM LEVEL 8.4 MG/DL (8.3-10.6); CREATININE FOR GFR 1.28 MG/DL (0.55-1.30); GLOMERULAR FILTRATION RATE 43.9 (>39); POTASSIUM SERUM 3.7 MMOL/L (3.5-5.1)
[2022-11-22] MEDS: SYMBICORT 160/4.5MCG INHALER 6GM INH SCH ×2 (07:33→20:13)
[2022-11-22 07:34] VITALS: O2SAT 96
[2022-11-22] MEDS: METOPROLOL TART 25 MG TABLET PO SCH ×2 (09:00→21:43)
[2022-11-22] MEDS: HEPARIN SOD (PORCINE) 5000UNITS/ML 1ML VIAL/SYRINGE SC SCH ×2 (10:23→21:43)
[2022-11-22] MEDS: buPROPion 100 MG TAB PO SCH ×2 (10:24→21:42)
[2022-11-22] MEDS ORDERED: BISACODYL 10MG SUPP PR ONE ×2 (10:30→14:00)
[2022-11-22] MEDS: KCL 40MEQ IN D5/0.45NS 1000ML 1,000 ML IV SCH ×2 (12:37→22:00)
[2022-11-22] MEDS: ACETAMINOPHEN TAB 650MG DOSE (2X325MG) PO PRN ×2 (14:51→23:14)
[2022-11-22 20:17] VITALS: O2SAT 96
[2022-11-22] MEDS: PANTOPRAZOLE 40MG VIAL IV SCH (21:42)
[2022-11-22 21:47] VITALS: BP 154/60; TEMP 97.3; O2SAT 100
[2022-11-23] MEDS: INSULIN LISPRO (NovoLOG) PER UNIT SC SCH ×3 (05:46→17:58)
[2022-11-23 05:48] LABS: BASO % 0.7 % (0.0-1.0); EOS # 0.2 10^3/uL (0.0-0.5); EOS % 5.7 % (0.0-3.0); HEMATOCRIT 38.2 % (36.0-47.0); HEMOGLOBIN 10.8 g/dl (12.0-15.5); LYMPH # 0.7 10^3/uL (1.5-5.0); LYMPH % 22.8 % (24.0-44.0); MEAN CORPUSCULAR HEMOGLOBIN 25.8 pg (27.0-33.0); MEAN CORPUSCULAR HGB CONC 28.3 g/dl (32.0-36.5); MEAN CORPUSCULAR VOLUME 91.4 fl (80.0-96.0); MONO # 0.3 10^3/uL (0.0-0.8); MONO % 8.4 % (2.0-8.0); NEUTROPHILS # 1.9 10^3/uL (1.5-8.5); NEUTROPHILS % 62.1 % (36.0-66.0); PLATELET COUNT, AUTOMATED 161 10^3/uL (150-450); RED BLOOD COUNT 4.18 10^6/uL (4.00-5.40)
[2022-11-23 06:00] VITALS: BP 147/60; TEMP 97.3; O2SAT 95
[2022-11-23 06:08] LABS: CALCIUM LEVEL 7.9 MG/DL (8.3-10.6); CREATININE FOR GFR 1.19 MG/DL (0.55-1.30); GLOMERULAR FILTRATION RATE 47.7 (>39); POTASSIUM SERUM 4.3 MMOL/L (3.5-5.1)
[2022-11-23] MEDS: KCL 40MEQ IN D5/0.45NS 1000ML 1,000 ML IV SCH ×3 (06:38→21:02)
[2022-11-23] MEDS: SYMBICORT 160/4.5MCG INHALER 6GM INH SCH ×2 (07:32→21:30)
[2022-11-23] MEDS: METOPROLOL TART 25 MG TABLET PO SCH ×2 (09:00→20:30)
[2022-11-23 09:02] VITALS: BP 150/68
[2022-11-23] MEDS: HEPARIN SOD (PORCINE) 5000UNITS/ML 1ML VIAL/SYRINGE SC SCH ×2 (09:04→20:29)
[2022-11-23] MEDS: buPROPion 100 MG TAB PO SCH ×2 (09:04→20:29)
[2022-11-23] MEDS ORDERED: E-Z-PAQUE 96% w/w SUSP 176GM BTL As Ordered ONE (10:20)
[2022-11-23] MEDS: ACETAMINOPHEN TAB 650MG DOSE (2X325MG) PO PRN (13:42)
[2022-11-23 14:00] VITALS: BP 147/57; TEMP 97.3; O2SAT 98
[2022-11-23 20:42] VITALS: BP 162/63; TEMP 97.5; O2SAT 98
[2022-11-23] MEDS: PANTOPRAZOLE 40MG VIAL IV SCH (21:02)
[2022-11-24 05:22] VITALS: BP 160/67; TEMP 97.5; O2SAT 95
[2022-11-24] MEDS: INSULIN LISPRO (NovoLOG) PER UNIT SC SCH ×3 (05:50→12:00)
[2022-11-24 06:19] VITALS: BP 164/100; TEMP 98.6; O2SAT 94
[2022-11-24 06:33] VITALS: BP 140/88
[2022-11-24 06:42] LABS: BASO % 0.6 % (0.0-1.0); EOS # 0.2 10^3/uL (0.0-0.5); EOS % 5.3 % (0.0-3.0); HEMATOCRIT 39.2 % (36.0-47.0); LYMPH # 0.5 10^3/uL (1.5-5.0); LYMPH % 15.5 % (24.0-44.0); MEAN CORPUSCULAR HEMOGLOBIN 26.1 pg (27.0-33.0); MEAN CORPUSCULAR HGB CONC 28.1 g/dl (32.0-36.5); MEAN CORPUSCULAR VOLUME 92.9 fl (80.0-96.0); MONO # 0.3 10^3/uL (0.0-0.8); MONO % 8.2 % (2.0-8.0); NEUTROPHILS # 2.4 10^3/uL (1.5-8.5); NEUTROPHILS % 70.1 % (36.0-66.0); PLATELET COUNT, AUTOMATED 174 10^3/uL (150-450); RED BLOOD COUNT 4.22 10^6/uL (4.00-5.40); WHITE BLOOD COUNT 3.4 10^3/uL (4.0-10.0)
[2022-11-24 07:08] LABS: BLOOD UREA NITROGEN < 5 MG/DL (9-23); CALCIUM LEVEL 8.1 MG/DL (8.3-10.6); CARBON DIOXIDE LEVEL 27 MMOL/L (20-31); CHLORIDE LEVEL 112 MMOL/L (98-107); CREATININE FOR GFR 1.09 MG/DL (0.55-1.30); GLOMERULAR FILTRATION RATE 52.8 (>39); GLUCOSE, FASTING 113 MG/DL (74-106); POTASSIUM SERUM 4.6 MMOL/L (3.5-5.1); SODIUM LEVEL 148 MMOL/L (136-145)
[2022-11-24] MEDS: SYMBICORT 160/4.5MCG INHALER 6GM INH SCH (07:50)
[2022-11-24] MEDS: KCL 40MEQ IN D5/0.45NS 1000ML 1,000 ML IV SCH (08:07)
[2022-11-24] MEDS: buPROPion 100 MG TAB PO SCH (08:08)
[2022-11-24] MEDS: HEPARIN SOD (PORCINE) 5000UNITS/ML 1ML VIAL/SYRINGE SC SCH (08:08)
[2022-11-24 08:09] VITALS: BP 142/64
[2022-11-24] MEDS: METOPROLOL TART 25 MG TABLET PO SCH (08:09)
== END 2022-11-24 15:45 | disposition home or self-care (01) | DRG 389 ==
LOC: EDBD 06:01 → M ED 06:01 → M ED INP 10:09 → M MS5PR 18:13
PROVIDERS: ADMIT Internal Medicine Nephrology; ATTEND Internal Medicine
DX: K56.600 Partial intestinal obstruction, unspecified as to cause (principal); I13.0 Hypertensive heart and chronic kidney disease with heart failure and stage 1 through stage 4 chronic kidney disease, or unspecified chronic kidney disease; I50.32 Chronic diastolic (congestive) heart failure; E87.0 Hyperosmolality and hypernatremia; Z68.42 Body mass index [BMI] 45.0-49.9, adult; E66.01 Morbid (severe) obesity due to excess calories; E11.22 Type 2 diabetes mellitus with diabetic chronic kidney disease; N18.30 Chronic kidney disease, stage 3 unspecified; J45.909 Unspecified asthma, uncomplicated; E78.5 Hyperlipidemia, unspecified; N20.0 Calculus of kidney; R19.7 Diarrhea, unspecified; R16.0 Hepatomegaly, not elsewhere classified; K43.9 Ventral hernia without obstruction or gangrene; G47.33 Obstructive sleep apnea (adult) (pediatric); Z88.8 Allergy status to other drugs, medicaments and biological substances; Z79.899 Other long term (current) drug therapy; Z79.82 Long term (current) use of aspirin; Z85.3 Personal history of malignant neoplasm of breast; F41.9 Anxiety disorder, unspecified; F32.A Depression, unspecified; Z92.21 Personal history of antineoplastic chemotherapy; Z92.3 Personal history of irradiation

== ENCOUNTER → 2023-02-10 | Outpatient (REF) | payer OTHER, MEDICAID ==
[~2023-02-10] MED LIST changes: +BUDE10.7 INH; +BUPR-69 PO; +PANT-23 PO; +VITA100093 PO
[2023-02-10 16:33] LABS: APPEARANCE, URINE CLOUDY (CLEAR); BACTERIA, URINE AUTO NEGATIVE (NEGATIVE); BILIRUBIN, URINE AUTO NEGATIVE (NEGATIVE); BLOOD, URINE BLOOD NEGATIVE (NEGATIVE); COLOR, URINE YELLOW (YELLOW); GLUCOSE, URINE (UA) AUTO NEGATIVE (NEGATIVE); KETONE, URINE AUTO NEGATIVE (NEGATIVE); LEUKOCYTE ESTERASE, URINE AUTO 3+ (NEGATIVE); MUCUS, URINE SMALL (NEGATIVE); NITRITE, URINE AUTO NEGATIVE (NEGATIVE); PROTEIN, URINE AUTO NEGATIVE (NEGATIVE); RBC, URINE AUTO 3 /HPF (0-3); SPECIFIC GRAVITY URINE AUTO 1.017 (1.002-1.035); SQUAMOUS EPITHELIAL CELL UR AU 1 /HPF (0-6); UROBILINOGEN, URINE AUTO 0.2 mg/dL (0.0-2.0); WBC, URINE AUTO TNTC /HPF (0-3)
== END ==
LOC: M SMT 15:27
PROVIDERS: ATTEND Nurse Practitioner Family
DX: N13.30 Unspecified hydronephrosis (principal); Z79.899 Other long term (current) drug therapy

== ENCOUNTER → 2023-03-17 | Outpatient (CLI) | payer OTHER, MEDICAID | LOC: M ONCR 09:27 | PROVIDERS: ATTEND General Practice | DX: Z08 Encounter for follow-up examination after completed treatment for malignant neoplasm (principal); Z85.3 Personal history of malignant neoplasm of breast; Z71.2 Person consulting for explanation of examination or test findings; Z79.51 Long term (current) use of inhaled steroids; Z79.811 Long term (current) use of aromatase inhibitors; Z79.82 Long term (current) use of aspirin; Z79.899 Other long term (current) drug therapy; Z92.21 Personal history of antineoplastic chemotherapy; Z92.3 Personal history of irradiation; Z88.8 Allergy status to other drugs, medicaments and biological substances; Z91.048 Other nonmedicinal substance allergy status; J30.89 Other allergic rhinitis ==

== ENCOUNTER 2023-03-29 15:16 | Inpatient (IN) | payer OTHER, MEDICAID ==
[~2023-03-29] VITALS: Ht 160 cm; Wt 130.5 kg
[2023-03-29 16:01] LABS: VENOUS HCO3 27.1 MMOL/L (23.0-27.0); VENOUS O2 SATURATION 39.4 % (60.0-80.0); VENOUS PARTIAL PRESSURE CO2 44.5 mmHg (38.0-50.0); VENOUS PARTIAL PRESSURE O2 22.2 mmHg (30.0-50.0); VENOUS PH 7.403 UNITS (7.330-7.430); VENOUS TOTAL CO2 28.5 MMOL/L (24.0-28.0)
[2023-03-29 16:22] LABS: BASO % 0.2 % (0.0-1.0); HEMATOCRIT 38.2 % (36.0-47.0); HEMOGLOBIN 11.6 g/dl (12.0-15.5); LYMPH # 0.6 10^3/uL (1.5-5.0); LYMPH % 4.5 % (24.0-44.0); MEAN CORPUSCULAR HEMOGLOBIN 26.9 pg (27.0-33.0); MEAN CORPUSCULAR HGB CONC 30.4 g/dl (32.0-36.5); MEAN CORPUSCULAR VOLUME 88.4 fl (80.0-96.0); MONO # 0.6 10^3/uL (0.0-0.8); MONO % 4.1 % (2.0-8.0); NEUTROPHILS # 12.2 10^3/uL (1.5-8.5); NEUTROPHILS % 89.8 % (36.0-66.0); PLATELET COUNT, AUTOMATED 177 10^3/uL (150-450); RED BLOOD COUNT 4.32 10^6/uL (4.00-5.40); WHITE BLOOD COUNT 13.6 10^3/uL (4.0-10.0)
[2023-03-29 16:29] LABS: THEOPHYLLINE LEVEL 11.3 UG/ML (10.0-20.0)
[2023-03-29 16:33] LABS: ALBUMIN 2.7 G/DL (3.2-5.2); ALKALINE PHOSPHATASE 47 U/L (46-116); ALT/SGPT 30 U/L (7.0-40); AST/SGOT 19 U/L (<34); BILIRUBIN,DIRECT 0.3 MG/DL (<0.4); BILIRUBIN,TOTAL 0.7 MG/DL (0.3-1.2); BLOOD UREA NITROGEN 21 MG/DL (9-23); CALCIUM LEVEL 8.8 MG/DL (8.3-10.6); CARBON DIOXIDE LEVEL 28 MMOL/L (20-31); CHLORIDE LEVEL 101 MMOL/L (98-107); CK-MB VALUE MASS < 1.0 NG/ML (<3.6); CPK CREATINE PHOSPHOKINASE 290 U/L (34-145); CREATININE FOR GFR 1.38 MG/DL (0.55-1.30); GLOMERULAR FILTRATION RATE 40.2 (>39); GLUCOSE, FASTING 131 MG/DL (74-106); MB/CK RELATIVE INDEX 0.34 (< OR =4); POTASSIUM SERUM 3.6 MMOL/L (3.5-5.1); SODIUM LEVEL 135 MMOL/L (136-145); TOTAL PROTEIN 5.8 G/DL (5.7-8.2)
[2023-03-29 16:34] LABS: THYROXINE (T4) 5.3 UG/DL (4.5-10.9)
[2023-03-29 16:35] LABS: THYROID STIMULATING HORMONE 1.871 uIU/ML (0.55-4.78)
[2023-03-29] MEDS ORDERED: ISOVUE-370 76% 100ML VIAL As Ordered ONE (16:42)
[2023-03-29] MEDS ORDERED: methylPREDNISolone 125MG 2ML VIAL IV ONE (17:25)
[2023-03-29] MEDS ORDERED: IPRATROPIUM 0.5MG/ALBUTEROL 2.5MG INH SOL UD 3ML (DUONEB) NEB ONE (17:25)
[2023-03-29 17:40] VITALS: O2SAT 97
[2023-03-29] MEDS ORDERED: cefTRIAXone SOD 1 GM in D5W MINI-BAG PLUS 50 ML IV ONE (17:55)
[2023-03-29] MEDS ORDERED: AZITHROMYCIN INJ 500 MG, VIAL MATE ADAPTER 1 EACH in NS 250 ML IV ONE (17:55)
[2023-03-29 18:11] LABS: CK-MB VALUE MASS < 1.0 NG/ML (<3.6)
[2023-03-29 18:12] LABS: CPK CREATINE PHOSPHOKINASE 269 U/L (34-145); MB/CK RELATIVE INDEX 0.37 (< OR =4)
[2023-03-29] MEDS ORDERED: MED REC IN PROGRESS XX SCH (18:25)
[2023-03-29] MEDS ORDERED: MOM 30ML SUSPENSION UDC PO PRN (19:45)
[2023-03-29] MEDS ORDERED: GLUCOSE 4GM CHEW TABLET PO PRN (19:45)
[2023-03-29] MEDS ORDERED: DEXTROSE 50% 50ML SYRINGE IV PRN (19:45)
[2023-03-29] MEDS ORDERED: GLUCAGON INJ 1MG VIAL SC PRN (19:45)
[2023-03-29] MEDS ORDERED: LR 1,000 ML IV SCH (19:50)
[2023-03-29] MEDS ORDERED: OXYB5TAB11 PO (19:51)
[2023-03-29] MEDS ORDERED: ANAS1TAB2 PO (19:52)
[2023-03-29] MEDS: SYMBICORT 160/4.5MCG INHALER 6GM INH SCH (20:00)
[2023-03-29] MEDS ORDERED: HOME MED LIST COMPLETE! XX SCH (20:00)
[2023-03-29] MEDS ORDERED: ALBUTEROL 90 MCG/ACT 8GM HFA INHALER INH PRN (20:10)
[2023-03-29 20:17] LABS: PROCALCITONIN 1.27 ng/ml
[2023-03-29] MEDS: DOCUSATE SODIUM 100MG CAPSULE PO SCH (21:00)
[2023-03-29 21:58] VITALS: BP 128/53; TEMP 99.3; O2SAT 91
[2023-03-29] MEDS: INSULIN LISPRO (NovoLOG) PER UNIT SC SCH (22:23)
[2023-03-29] MEDS: ROSUVASTATIN 10 MG TAB (CRESTOR) PO SCH (22:23)
[2023-03-29] MEDS: PANTOPRAZOLE 40MG TAB (PROTONIX) PO SCH (22:24)
[2023-03-29] MEDS: SUCRALFATE 1 GM TAB PO SCH (22:24)
[2023-03-29] MEDS: traZODone 50 MG TAB PO SCH (22:24)
[2023-03-29] MEDS: buPROPion 100 MG TAB PO SCH (22:50)
[2023-03-29] MEDS: ARIPiprazole 2 MG TAB PO SCH (22:50)
[2023-03-29] MEDS: THEOPHYLLINE (THEO-24) 100MG SR **CAPSULE PO SCH (22:51)
[2023-03-29 22:53] VITALS: O2SAT 88
[2023-03-29 23:50] VITALS: O2SAT 95
[2023-03-29] MEDS: UNRESOLVED PATIENT OWN MED ORDER XX SCH (23:52)
[2023-03-30 00:54] VITALS: BP 124/50; TEMP 97.7; O2SAT 92
[2023-03-30 04:00] VITALS: BP 122/53; TEMP 97.7; O2SAT 92
[2023-03-30] MEDS ORDERED: HEPARIN SOD (PORCINE) 5000UNITS/ML 1ML VIAL/SYRINGE SQ SCH (06:00)
[2023-03-30 06:13] LABS: HEMATOCRIT 36.4 % (36.0-47.0); LYMPH # 0.5 10^3/uL (1.5-5.0); LYMPH % 3.6 % (24.0-44.0); MEAN CORPUSCULAR HEMOGLOBIN 26.8 pg (27.0-33.0); MEAN CORPUSCULAR HGB CONC 30.2 g/dl (32.0-36.5); MEAN CORPUSCULAR VOLUME 88.6 fl (80.0-96.0); MONO # 0.3 10^3/uL (0.0-0.8); MONO % 2.1 % (2.0-8.0); NEUTROPHILS # 11.7 10^3/uL (1.5-8.5); NEUTROPHILS % 92.9 % (36.0-66.0); PLATELET COUNT, AUTOMATED 164 10^3/uL (150-450); RED BLOOD COUNT 4.11 10^6/uL (4.00-5.40); WHITE BLOOD COUNT 12.6 10^3/uL (4.0-10.0)
[2023-03-30 06:33] LABS: THEOPHYLLINE LEVEL 9.6 UG/ML (10.0-20.0)
[2023-03-30 06:37] LABS: CALCIUM LEVEL 8.4 MG/DL (8.3-10.6); CREATININE FOR GFR 1.29 MG/DL (0.55-1.30); GLOMERULAR FILTRATION RATE 43.5 (>39)
[2023-03-30] MEDS: SYMBICORT 160/4.5MCG INHALER 6GM INH SCH ×2 (07:59→19:50)
[2023-03-30] MEDS: THEOPHYLLINE (THEO-24) 100MG SR **CAPSULE PO SCH ×2 (08:45→20:19)
[2023-03-30] MEDS: ASCORBIC ACID 500 MG TAB PO SCH (08:45)
[2023-03-30] MEDS: MONTELUKAST 10 MG TAB PO SCH (08:45)
[2023-03-30] MEDS: SUCRALFATE 1 GM TAB PO SCH ×2 (08:45→20:19)
[2023-03-30] MEDS: VITAMIN D 1,000 INTERNATIONAL UNITS TABLET PO SCH (08:45)
[2023-03-30] MEDS: FLUoxetine 20MG CAP PO SCH (08:45)
[2023-03-30] MEDS: oxyBUTYnin 5 MG TAB PO SCH (08:46)
[2023-03-30] MEDS: buPROPion 100 MG TAB PO SCH ×2 (08:46→20:20)
[2023-03-30] MEDS: INSULIN LISPRO (NovoLOG) PER UNIT SC SCH ×4 (08:46→20:14)
[2023-03-30] MEDS: MULTIVITAMINS/MINERALS THERAP 1 TAB PO SCH (08:46)
[2023-03-30] MEDS: ASPIRIN 81MG ENTERIC TABLET PO SCH (08:46)
[2023-03-30] MEDS: DOCUSATE SODIUM 100MG CAPSULE PO SCH ×2 (08:46→20:19)
[2023-03-30] MEDS: ACETAMINOPHEN TAB 650MG DOSE (2X325MG) PO PRN ×2 (08:48→20:19)
[2023-03-30] MEDS: METOPROLOL SUCC (TopROL XL) 50MG **XL** TAB PO SCH (08:49)
[2023-03-30 09:00] VITALS: O2SAT 98
[2023-03-30] MEDS ORDERED: ENOXAPARIN 40MG/0.4ML SYRINGE (J1650 PER 10MG) SC SCH (09:00)
[2023-03-30] MEDS ORDERED: FUROSEMIDE 40 MG TAB PO SCH (09:00)
[2023-03-30] MEDS ORDERED: ANASTROZOLE 1 MG PO SCH (09:00)
[2023-03-30 10:00] VITALS: BP 115/57; TEMP 97.5; O2SAT 92
[2023-03-30 14:00] VITALS: BP 152/71; TEMP 97.5; O2SAT 94
[2023-03-30] MEDS: cefTRIAXone SOD 1 GM in D5W MINI-BAG PLUS 50 ML IV SCH (17:51)
[2023-03-30] MEDS: AZITHROMYCIN 250MG TABLET PO SCH (17:52)
[2023-03-30] MEDS: traZODone 50 MG TAB PO SCH (20:19)
[2023-03-30] MEDS: ARIPiprazole 2 MG TAB PO SCH (20:19)
[2023-03-30] MEDS: PANTOPRAZOLE 40MG TAB (PROTONIX) PO SCH (20:19)
[2023-03-30] MEDS: ROSUVASTATIN 10 MG TAB (CRESTOR) PO SCH (20:19)
[2023-03-30 21:50] VITALS: BP 121/48; TEMP 97.7; O2SAT 93
[2023-03-30] MEDS ORDERED: LEVEMIR (INSULIN DETEMIR) 1 UNITS/0.01ML SC SCH (22:05)
[2023-03-31] VITALS (7 sets, daily range): BP systolic 121–154; BP diastolic 50–67; TEMP 97.3–97.9; O2SAT 87–96
[2023-03-31 05:51] LABS: BASO % 0.1 % (0.0-1.0); HEMATOCRIT 33.8 % (36.0-47.0); HEMOGLOBIN 10.2 g/dl (12.0-15.5); LYMPH # 0.5 10^3/uL (1.5-5.0); LYMPH % 4.2 % (24.0-44.0); MEAN CORPUSCULAR HEMOGLOBIN 26.7 pg (27.0-33.0); MEAN CORPUSCULAR HGB CONC 30.2 g/dl (32.0-36.5); MEAN CORPUSCULAR VOLUME 88.5 fl (80.0-96.0); MONO # 0.4 10^3/uL (0.0-0.8); MONO % 3.5 % (2.0-8.0); NEUTROPHILS # 11.4 10^3/uL (1.5-8.5); NEUTROPHILS % 91.4 % (36.0-66.0); PLATELET COUNT, AUTOMATED 191 10^3/uL (150-450); RED BLOOD COUNT 3.82 10^6/uL (4.00-5.40); WHITE BLOOD COUNT 12.4 10^3/uL (4.0-10.0)
[2023-03-31 06:17] LABS: CALCIUM LEVEL 8.7 MG/DL (8.3-10.6); CREATININE FOR GFR 1.22 MG/DL (0.55-1.30); GLOMERULAR FILTRATION RATE 46.4 (>39); POTASSIUM SERUM 3.8 MMOL/L (3.5-5.1)
[2023-03-31] MEDS: UNRESOLVED PATIENT OWN MED ORDER XX SCH (07:13)
[2023-03-31 07:47] LABS: PROCALCITONIN 1.73 ng/ml
[2023-03-31] MEDS: SYMBICORT 160/4.5MCG INHALER 6GM INH SCH ×2 (07:50→20:01)
[2023-03-31] MEDS: ACETAMINOPHEN TAB 650MG DOSE (2X325MG) PO PRN (09:00)
[2023-03-31] MEDS: buPROPion 100 MG TAB PO SCH ×2 (09:01→21:12)
[2023-03-31] MEDS: DOCUSATE SODIUM 100MG CAPSULE PO SCH ×2 (09:01→21:12)
[2023-03-31] MEDS: THEOPHYLLINE (THEO-24) 100MG SR **CAPSULE PO SCH ×2 (09:01→21:11)
[2023-03-31] MEDS: SUCRALFATE 1 GM TAB PO SCH ×2 (09:01→21:12)
[2023-03-31] MEDS: FLUoxetine 20MG CAP PO SCH (09:01)
[2023-03-31] MEDS: MONTELUKAST 10 MG TAB PO SCH (09:01)
[2023-03-31] MEDS: ASCORBIC ACID 500 MG TAB PO SCH (09:01)
[2023-03-31] MEDS: ASPIRIN 81MG ENTERIC TABLET PO SCH (09:01)
[2023-03-31] MEDS: oxyBUTYnin 5 MG TAB PO SCH (09:01)
[2023-03-31] MEDS: MULTIVITAMINS/MINERALS THERAP 1 TAB PO SCH (09:01)
[2023-03-31] MEDS: VITAMIN D 1,000 INTERNATIONAL UNITS TABLET PO SCH (09:01)
[2023-03-31] MEDS: INSULIN LISPRO (NovoLOG) PER UNIT SC SCH ×4 (09:01→20:49)
[2023-03-31] MEDS: METOPROLOL SUCC (TopROL XL) 50MG **XL** TAB PO SCH (09:04)
[2023-03-31] MEDS: ENOXAPARIN 40MG/0.4ML SYRINGE (J1650 PER 10MG) SC SCH ×2 (09:28→21:12)
[2023-03-31 14:54] LABS: ERYTHROCYTE SEDIMENTATION RATE 119 mm/hr (0-30)
[2023-03-31 15:37] LABS: C REACTIVE PROTEIN QUANTITATIV 24.5 MG/DL (<1.0)
[2023-03-31] MEDS: AZITHROMYCIN 250MG TABLET PO SCH (17:00)
[2023-03-31] MEDS: cefTRIAXone SOD 1 GM in D5W MINI-BAG PLUS 50 ML IV SCH (17:00)
[2023-03-31 19:49] LABS: C REACTIVE PROTEIN QUANTITATIV 33.8 MG/DL (<1.0)
[2023-03-31] MEDS: ARIPiprazole 2 MG TAB PO SCH (21:12)
[2023-03-31] MEDS: PANTOPRAZOLE 40MG TAB (PROTONIX) PO SCH (21:12)
[2023-03-31] MEDS: ROSUVASTATIN 10 MG TAB (CRESTOR) PO SCH (21:12)
[2023-03-31] MEDS: traZODone 50 MG TAB PO SCH (21:12)
[2023-04-01] MEDS: UNRESOLVED PATIENT OWN MED ORDER XX SCH (00:01)
[2023-04-01] MEDS: ACETAMINOPHEN TAB 650MG DOSE (2X325MG) PO PRN ×2 (01:55→22:21)
[2023-04-01 02:00] VITALS: BP 137/66; TEMP 97.9; O2SAT 92
[2023-04-01 05:06] VITALS: BP 134/61; TEMP 98.2; O2SAT 93
[2023-04-01 06:18] LABS: BASO % 0.1 % (0.0-1.0); EOS % 0.1 % (0.0-3.0); HEMATOCRIT 33.1 % (36.0-47.0); HEMOGLOBIN 10.1 g/dl (12.0-15.5); LYMPH # 0.9 10^3/uL (1.5-5.0); LYMPH % 10.7 % (24.0-44.0); MEAN CORPUSCULAR HEMOGLOBIN 27.1 pg (27.0-33.0); MEAN CORPUSCULAR HGB CONC 30.5 g/dl (32.0-36.5); MEAN CORPUSCULAR VOLUME 88.7 fl (80.0-96.0); MONO # 0.5 10^3/uL (0.0-0.8); MONO % 6.3 % (2.0-8.0); NEUTROPHILS # 7.1 10^3/uL (1.5-8.5); PLATELET COUNT, AUTOMATED 215 10^3/uL (150-450); RED BLOOD COUNT 3.73 10^6/uL (4.00-5.40); WHITE BLOOD COUNT 8.6 10^3/uL (4.0-10.0)
[2023-04-01 06:36] LABS: ERYTHROCYTE SEDIMENTATION RATE 105 mm/hr (0-30)
[2023-04-01 06:44] LABS: C REACTIVE PROTEIN QUANTITATIV 10.9 MG/DL (<1.0)
[2023-04-01 06:46] LABS: CALCIUM LEVEL 8.5 MG/DL (8.3-10.6); CREATININE FOR GFR 1.36 MG/DL (0.55-1.30); GLOMERULAR FILTRATION RATE 40.9 (>39); POTASSIUM SERUM 3.8 MMOL/L (3.5-5.1)
[2023-04-01] MEDS: SYMBICORT 160/4.5MCG INHALER 6GM INH SCH ×2 (08:21→20:55)
[2023-04-01] MEDS: DOCUSATE SODIUM 100MG CAPSULE PO SCH ×2 (08:41→22:22)
[2023-04-01] MEDS: oxyBUTYnin 5 MG TAB PO SCH (08:41)
[2023-04-01] MEDS: INSULIN LISPRO (NovoLOG) PER UNIT SC SCH ×4 (08:41→22:07)
[2023-04-01] MEDS: MULTIVITAMINS/MINERALS THERAP 1 TAB PO SCH (08:41)
[2023-04-01] MEDS: FLUoxetine 20MG CAP PO SCH (08:41)
[2023-04-01] MEDS: ENOXAPARIN 40MG/0.4ML SYRINGE (J1650 PER 10MG) SC SCH ×2 (08:41→22:23)
[2023-04-01] MEDS: ASPIRIN 81MG ENTERIC TABLET PO SCH (08:41)
[2023-04-01] MEDS: ASCORBIC ACID 500 MG TAB PO SCH (08:41)
[2023-04-01] MEDS: buPROPion 100 MG TAB PO SCH ×2 (08:41→22:22)
[2023-04-01] MEDS: SUCRALFATE 1 GM TAB PO SCH ×2 (08:41→22:22)
[2023-04-01] MEDS: MONTELUKAST 10 MG TAB PO SCH (08:41)
[2023-04-01] MEDS: THEOPHYLLINE (THEO-24) 100MG SR **CAPSULE PO SCH ×2 (08:41→22:21)
[2023-04-01] MEDS: VITAMIN D 1,000 INTERNATIONAL UNITS TABLET PO SCH (08:41)
[2023-04-01] MEDS: METOPROLOL SUCC (TopROL XL) 50MG **XL** TAB PO SCH (08:45)
[2023-04-01 10:00] VITALS: BP 120/68; TEMP 97.5; O2SAT 94
[2023-04-01] MEDS: CEFDINIR 300 MG CAP (OMNICEF) PO SCH ×2 (13:14→22:22)
[2023-04-01 14:00] VITALS: BP 135/49; TEMP 97.5; O2SAT 92
[2023-04-01] MEDS ORDERED: LR 1,000 ML IV SCH (14:35)
[2023-04-01 18:00] VITALS: BP 156/68; TEMP 97.5; O2SAT 98
[2023-04-01 22:00] VITALS: BP 151/69; TEMP 97.9; O2SAT 95
[2023-04-01] MEDS ORDERED: PILL CUTTER 1 EACH XX ONE (22:15)
[2023-04-01] MEDS: PANTOPRAZOLE 40MG TAB (PROTONIX) PO SCH (22:22)
[2023-04-01] MEDS: ROSUVASTATIN 10 MG TAB (CRESTOR) PO SCH (22:22)
[2023-04-01] MEDS: traZODone 50 MG TAB PO SCH (22:23)
[2023-04-01] MEDS: ARIPiprazole 2 MG TAB PO SCH (22:23)
[2023-04-02] MEDS: UNRESOLVED PATIENT OWN MED ORDER XX SCH (00:01)
[2023-04-02 02:00] VITALS: BP 153/71; TEMP 97.7; O2SAT 92
[2023-04-02 06:00] VITALS: BP 151/71; TEMP 97.3; O2SAT 93
[2023-04-02 06:46] LABS: BASO % 0.2 % (0.0-1.0); EOS # 0.1 10^3/uL (0.0-0.5); EOS % 1.7 % (0.0-3.0); HEMATOCRIT 35.3 % (36.0-47.0); HEMOGLOBIN 10.6 g/dl (12.0-15.5); LYMPH # 0.9 10^3/uL (1.5-5.0); LYMPH % 14.6 % (24.0-44.0); MEAN CORPUSCULAR VOLUME 89.8 fl (80.0-96.0); MONO # 0.4 10^3/uL (0.0-0.8); MONO % 7.1 % (2.0-8.0); NEUTROPHILS # 4.6 10^3/uL (1.5-8.5); NEUTROPHILS % 75.4 % (36.0-66.0); PLATELET COUNT, AUTOMATED 233 10^3/uL (150-450); RED BLOOD COUNT 3.93 10^6/uL (4.00-5.40)
[2023-04-02 07:13] LABS: CALCIUM LEVEL 9.2 MG/DL (8.3-10.6); CREATININE FOR GFR 1.2 MG/DL (0.55-1.30); GLOMERULAR FILTRATION RATE 47.3 (>39); POTASSIUM SERUM 4.3 MMOL/L (3.5-5.1)
[2023-04-02] MEDS: INSULIN LISPRO (NovoLOG) PER UNIT SC SCH ×2 (07:30→12:00)
[2023-04-02] MEDS: SYMBICORT 160/4.5MCG INHALER 6GM INH SCH (07:58)
[2023-04-02 10:00] VITALS: BP 156/63; TEMP 97.5; O2SAT 96
[2023-04-02] MEDS: MULTIVITAMINS/MINERALS THERAP 1 TAB PO SCH (10:17)
[2023-04-02] MEDS: DOCUSATE SODIUM 100MG CAPSULE PO SCH (10:18)
[2023-04-02] MEDS: CEFDINIR 300 MG CAP (OMNICEF) PO SCH (10:18)
[2023-04-02] MEDS: MONTELUKAST 10 MG TAB PO SCH (10:18)
[2023-04-02] MEDS: ASPIRIN 81MG ENTERIC TABLET PO SCH (10:19)
[2023-04-02] MEDS: FLUoxetine 20MG CAP PO SCH (10:19)
[2023-04-02] MEDS: THEOPHYLLINE (THEO-24) 100MG SR **CAPSULE PO SCH (10:20)
[2023-04-02] MEDS: VITAMIN D 1,000 INTERNATIONAL UNITS TABLET PO SCH (10:20)
[2023-04-02] MEDS: ASCORBIC ACID 500 MG TAB PO SCH (10:20)
[2023-04-02] MEDS: buPROPion 100 MG TAB PO SCH (10:21)
[2023-04-02] MEDS: SUCRALFATE 1 GM TAB PO SCH (10:21)
[2023-04-02] MEDS: oxyBUTYnin 5 MG TAB PO SCH (10:21)
[2023-04-02] MEDS: ENOXAPARIN 40MG/0.4ML SYRINGE (J1650 PER 10MG) SC SCH (10:24)
[2023-04-02 10:25] VITALS: BP 156/63
[2023-04-02] MEDS: METOPROLOL SUCC (TopROL XL) 50MG **XL** TAB PO SCH (10:25)
[2023-04-02] MEDS ORDERED: CEFD300CAP PO (10:49)
== END 2023-04-02 15:55 | disposition home or self-care (01) | DRG 194 ==
LOC: M ED 15:16 → M ED INP 19:44 → ENRESERV 20:13 → M MSPAV 21:58
PROVIDERS: ADMIT Student in an Organized Health Care Education/Training Program; ATTEND Student in an Organized Health Care Education/Training Program
DX: J18.9 Pneumonia, unspecified organism (principal); N17.9 Acute kidney failure, unspecified; Z68.43 Body mass index [BMI] 50.0-59.9, adult; J44.9 Chronic obstructive pulmonary disease, unspecified; J45.909 Unspecified asthma, uncomplicated; E11.22 Type 2 diabetes mellitus with diabetic chronic kidney disease; E78.5 Hyperlipidemia, unspecified; K21.9 Gastro-esophageal reflux disease without esophagitis; E66.9 Obesity, unspecified; I11.0 Hypertensive heart disease with heart failure; F32.A Depression, unspecified; I50.9 Heart failure, unspecified; N18.30 Chronic kidney disease, stage 3 unspecified; Z85.3 Personal history of malignant neoplasm of breast; Z92.3 Personal history of irradiation; Z86.718 Personal history of other venous thrombosis and embolism; Z79.899 Other long term (current) drug therapy; Z79.82 Long term (current) use of aspirin; E55.9 Vitamin D deficiency, unspecified; Z88.8 Allergy status to other drugs, medicaments and biological substances; G47.00 Insomnia, unspecified

== ENCOUNTER → 2023-05-31 | Outpatient (CLI) | payer OTHER, MEDICAID ==
[~2023-05-31] MED LIST changes: +CEFD300CAP PO; +OXYB5TAB14 PO
== END ==
LOC: M RAD 09:58
PROVIDERS: ATTEND Specialist
DX: C34.90 Malignant neoplasm of unspecified part of unspecified bronchus or lung (principal)

== ENCOUNTER → 2023-07-22 | Outpatient (REF) | payer MEDICARE, OTHER, MEDICAID ==
[2023-07-22 13:22] LABS: APPEARANCE, URINE CLOUDY (CLEAR); BACTERIA, URINE AUTO 1+ (NEGATIVE); BILIRUBIN, URINE AUTO NEGATIVE (NEGATIVE); BLOOD, URINE BLOOD NEGATIVE (NEGATIVE); COLOR, URINE YELLOW (YELLOW); GLUCOSE, URINE (UA) AUTO NEGATIVE (NEGATIVE); KETONE, URINE AUTO NEGATIVE (NEGATIVE); LEUKOCYTE ESTERASE, URINE AUTO 3+ (NEGATIVE); MUCUS, URINE SMALL (NEGATIVE); NITRITE, URINE AUTO NEGATIVE (NEGATIVE); PROTEIN, URINE AUTO 1+ mg/dL (NEGATIVE); RBC, URINE AUTO 5 /HPF (0-3); SPECIFIC GRAVITY URINE AUTO 1.019 (1.002-1.035); SQUAMOUS EPITHELIAL CELL UR AU 1 /HPF (0-6); TRANSITIONAL EPITHELIAL AUTO 1 /HPF; UROBILINOGEN, URINE AUTO 0.2 mg/dL (0.0-2.0); WBC, URINE AUTO TNTC /HPF (0-3)
== END ==
LOC: M SFHCDERM 12:19
PROVIDERS: ATTEND Nurse Practitioner Family
DX: R30.0 Dysuria (principal)

== ENCOUNTER → 2023-10-12 | Outpatient (REF) | payer OTHER, MEDICAID ==
[~2023-10-12] MED LIST changes: +FLUO-365 PO; -FLUO20CA22 PO
[2023-10-12 17:35] LABS: APPEARANCE, URINE MANUAL HAZY (CLEAR); COLOR, URINE MANUAL YELLOW (YELLOW)
[2023-10-12 17:36] LABS: BILIRUBIN, URINE MANUAL NEGATIVE (NEGATIVE); BLOOD URINE MANUAL POSITIVE (NEGATIVE); GLUCOSE, URINE (UA) MANUAL NEGATIVE (NEGATIVE); KETONE, URINE MANUAL NEGATIVE (NEGATIVE); LEUKOCYTE ESTERASE, URINE MAN POSITIVE (NEGATIVE); NITRITE, URINE MANUAL POSITIVE (NEGATIVE); PH,URINE MAN 7.5 UNITS (5.0 - 7.0); PROTEIN, URINE MANUAL TRACE mg/dL (NEGATIVE); UROBILINOGEN, URINE MANUAL NORMAL (NORMAL)
[2023-10-12 17:47] LABS: SQUAMOUS EPITHELIAL CELL URINE NONE SEEN /hpf (SMALL AMT); TRIPLE PHOSPHATE CRYSTAL,URINE MOD AMOUNT /hpf; WBC, URINE 40-50 /hpf (0-3)
[2023-10-12 17:48] LABS: BACTERIA, URINE MOD AMOUNT; HYALINE CAST, URINE NONE SEEN /lpf (0-1); MUCUS, URINE SMALL AMOUNT (NEGATIVE)
== END ==
LOC: M LAB REF 16:16
PROVIDERS: ATTEND Nurse Practitioner Adult Health
DX: R30.0 Dysuria (principal)

== ENCOUNTER → 2023-10-18 | Outpatient (CLI) | payer OTHER, MEDICAID | LOC: M WHC 09:16 | PROVIDERS: ATTEND Nurse Practitioner Women's Health | DX: C50.812 Malignant neoplasm of overlapping sites of left female breast (principal) | CPT/HCPCS: 77066; G0279 ==

== ENCOUNTER 2023-10-22 11:30 | Inpatient (IN) | payer OTHER, MEDICAID ==
[~2023-10-22] VITALS: Ht 160 cm; Wt 140.3 kg
[2023-10-22 12:02] LABS: EOS # 0.1 10^3/uL (0.0-0.5); EOS % 3.3 % (0.0-3.0); HEMATOCRIT 40.7 % (36.0-47.0); HEMOGLOBIN 12.4 g/dl (12.0-15.5); LYMPH # 0.6 10^3/uL (1.5-5.0); LYMPH % 16.1 % (24.0-44.0); MEAN CORPUSCULAR HEMOGLOBIN 27.7 pg (27.0-33.0); MEAN CORPUSCULAR HGB CONC 30.5 g/dl (32.0-36.5); MEAN CORPUSCULAR VOLUME 91.1 fl (80.0-96.0); MONO # 0.3 10^3/uL (0.0-0.8); MONO % 6.8 % (2.0-8.0); NEUTROPHILS # 2.9 10^3/uL (1.5-8.5); NEUTROPHILS % 72.5 % (36.0-66.0); PLATELET COUNT, AUTOMATED 145 10^3/uL (150-450); RED BLOOD COUNT 4.47 10^6/uL (4.00-5.40)
[2023-10-22 12:28] LABS: CK-MB VALUE MASS < 1.0 NG/ML (<3.6)
[2023-10-22 12:30] LABS: CPK CREATINE PHOSPHOKINASE 43 U/L (34-145); MB/CK RELATIVE INDEX 2.32 (< OR =4)
[2023-10-22 12:31] LABS: ALKALINE PHOSPHATASE 36 U/L (46-116); ALT/SGPT 19 U/L (7.0-40); AST/SGOT 10 U/L (<34); BILIRUBIN,DIRECT < 0.1 MG/DL (<0.4); BILIRUBIN,TOTAL 0.3 MG/DL (0.3-1.2); BLOOD UREA NITROGEN 23 MG/DL (9-23); CALCIUM LEVEL 9.6 MG/DL (8.3-10.6); CARBON DIOXIDE LEVEL 34 MMOL/L (20-31); CHLORIDE LEVEL 111 MMOL/L (98-107); CREATININE FOR GFR 1.51 MG/DL (0.55-1.30); GLOMERULAR FILTRATION RATE 36.3 (>39); GLUCOSE, FASTING 122 MG/DL (74-106); POTASSIUM SERUM 4.4 MMOL/L (3.5-5.1); SODIUM LEVEL 146 MMOL/L (136-145); TOTAL PROTEIN 5.4 G/DL (5.7-8.2)
[2023-10-22 12:33] LABS: THYROID STIMULATING HORMONE 3.262 uIU/ML (0.55-4.78)
[2023-10-22] MEDS: diazePAM 10MG/2ML SYRINGE IV ONE (13:39)
[2023-10-22] MEDS: MECLIZINE 25 MG TABLET PO ONE (13:39)
[2023-10-22] MEDS ORDERED: ACET-907 PO (14:18)
[2023-10-22] MEDS ORDERED: MULTTAB14 PO (14:18)
[2023-10-22] MEDS ORDERED: LEVO1TAB39 PO (14:18)
[2023-10-22] MEDS ORDERED: HOME MED LIST COMPLETE! XX SCH (14:25)
[2023-10-22] MEDS ORDERED: MECL-209 PO (17:46)
[2023-10-22] MEDS: LIDOCAINE 2% 5ML JELLY UROJET TOP ONE (19:10)
[2023-10-22 19:35] LABS: MAGNESIUM LEVEL 2.1 MG/DL (1.8-2.4)
[2023-10-22 19:36] LABS: VENOUS BASE EXCESS 2.9 (-2.0-2.0); VENOUS HCO3 30.6 MMOL/L (23.0-27.0); VENOUS O2 SATURATION 71.4 % (60.0-80.0); VENOUS PARTIAL PRESSURE CO2 61.4 mmHg (38.0-50.0); VENOUS PARTIAL PRESSURE O2 38.4 mmHg (30.0-50.0); VENOUS PH 7.315 UNITS (7.330-7.430); VENOUS STANDARD HCO3 26.4 MMOL/L; VENOUS TOTAL CO2 32.5 MMOL/L (24.0-28.0)
[2023-10-22] MEDS ORDERED: ALBUTEROL 90 MCG/ACT 8GM HFA INHALER INH PRN (22:15)
[2023-10-22] MEDS ORDERED: ALBUTEROL SULFATE 2.5MG/0.5ML INH NEB SOLN INH PRN (22:15)
[2023-10-22] MEDS ORDERED: MAALOX 30 ML SUSP *UDC PO PRN (22:40)
[2023-10-22] MEDS ORDERED: GLUCAGON INJ 1MG VIAL SC PRN (22:40)
[2023-10-22] MEDS ORDERED: DEXTROSE 50% 50ML SYRINGE IV PRN (22:40)
[2023-10-22] MEDS ORDERED: GLUCOSE 4 GM CHEW PO PRN (22:40)
[2023-10-22] MEDS ORDERED: THEO300T33 (22:54)
[2023-10-22] MEDS: PANTOPRAZOLE 40MG TAB (PROTONIX) PO SCH (23:01)
[2023-10-22] MEDS: ARIPiprazole 2 MG TAB PO SCH (23:01)
[2023-10-22 23:12] LABS: BARBITURATES URINE NEGATIVE (NEGATIVE); CANNABINOIDS URINE NEGATIVE (NEGATIVE); COCAINE METABOLITE URINE NEGATIVE (NEGATIVE); METHADONE URINE NEGATIVE (NEGATIVE); OPIATES URINE NEGATIVE (NEGATIVE); PHENCYCLIDINE URINE NEGATIVE (NEGATIVE)
[2023-10-22 23:13] LABS: AMPHETAMINES LEVEL URINE NEGATIVE (NEGATIVE); BENZODIAZEPINES URINE NEGATIVE (NEGATIVE)
[2023-10-22 23:19] LABS: THEOPHYLLINE LEVEL 9.7 UG/ML (10.0-20.0)
[2023-10-22 23:21] LABS: ETHYL ALCOHOL (ETHANOL) < 0.003 % (0.000-0.010)
[2023-10-22 23:22] VITALS: BP 174/58; TEMP 98.1; O2SAT 97
[2023-10-22 23:23] LABS: SALICYLATE LEVEL < 3.0 MG/DL (<30)
[2023-10-22] MEDS: INSULIN LISPRO (NovoLOG) PER UNIT SC SCH (23:53)
[2023-10-22] MEDS: SYMBICORT 160/4.5MCG INHALER 6GM INH SCH (23:53)
[2023-10-23] MEDS: oxyBUTYnin 5 MG TAB PO SCH (00:01)
[2023-10-23] MEDS: traZODone 25MG PER 1/2 TABLET PO SCH ×2 (00:01→21:01)
[2023-10-23] MEDS: UNRESOLVED PATIENT OWN MED ORDER XX SCH (00:01)
[2023-10-23] MEDS: METOPROLOL TART 12.5 MG PER 1/2 TAB PO SCH (00:02)
[2023-10-23] MEDS: DOCUSATE SODIUM 100MG CAPSULE PO SCH (00:02)
[2023-10-23] MEDS: buPROPion 100 MG TAB PO SCH (00:02)
[2023-10-23] MEDS: ACETAMINOPHEN 325 MG TAB PO PRN (00:03)
[2023-10-23 01:19] LABS: INR 1.08; PARTIAL THROMBOPLASTIN TIME 22.2 SECONDS (24.8-34.2); PROTHROMBIN TIME 13.7 SECONDS (12.5-14.5)
[2023-10-23] MEDS: IPRATROPIUM 0.5MG/ALBUTEROL 2.5MG INH SOL UD 3ML (DUONEB) NEB SCH (02:00)
[2023-10-23 04:00] VITALS: BP 148/70; TEMP 98; O2SAT 92
[2023-10-23 05:07] VITALS: O2SAT 91
[2023-10-23] MEDS: INSULIN LISPRO (NovoLOG) PER UNIT SC SCH (07:30)
[2023-10-23 08:11] LABS: VENOUS BASE EXCESS 1.6 (-2.0-2.0); VENOUS HCO3 29.3 MMOL/L (23.0-27.0); VENOUS O2 SATURATION 92.2 % (60.0-80.0); VENOUS PARTIAL PRESSURE CO2 60.6 mmHg (38.0-50.0); VENOUS PARTIAL PRESSURE O2 69.4 mmHg (30.0-50.0); VENOUS PH 7.302 UNITS (7.330-7.430); VENOUS STANDARD HCO3 25.7 MMOL/L; VENOUS TOTAL CO2 31.1 MMOL/L (24.0-28.0)
[2023-10-23 08:16] LABS: HEMATOCRIT 41.1 % (36.0-47.0); HEMOGLOBIN 11.9 g/dl (12.0-15.5); MEAN CORPUSCULAR HEMOGLOBIN 27.3 pg (27.0-33.0); MEAN CORPUSCULAR VOLUME 94.3 fl (80.0-96.0); PLATELET COUNT, AUTOMATED 132 10^3/uL (150-450); RED BLOOD COUNT 4.36 10^6/uL (4.00-5.40); WHITE BLOOD COUNT 3.6 10^3/uL (4.0-10.0)
[2023-10-23 08:40] LABS: ALBUMIN 2.9 G/DL (3.2-5.2); BILIRUBIN,TOTAL 0.3 MG/DL (0.3-1.2); CALCIUM LEVEL 9.8 MG/DL (8.3-10.6); CREATININE FOR GFR 1.46 MG/DL (0.55-1.30); GLOMERULAR FILTRATION RATE 37.7 (>39); MAGNESIUM LEVEL 2.2 MG/DL (1.8-2.4); POTASSIUM SERUM 4.4 MMOL/L (3.5-5.1); TOTAL PROTEIN 5.2 G/DL (5.7-8.2)
[2023-10-23] MEDS: VITAMIN D 1,000 INTERNATIONAL UNITS TABLET PO SCH (08:50)
[2023-10-23] MEDS: FUROSEMIDE 40 MG TAB PO SCH (08:50)
[2023-10-23] MEDS: ASCORBIC ACID 500 MG TAB PO SCH (08:50)
[2023-10-23] MEDS: MONTELUKAST 10 MG TAB PO SCH (08:50)
[2023-10-23] MEDS: THEOPHYLLINE (THEO-24) 100MG SR **CAPSULE PO SCH (08:50)
[2023-10-23] MEDS: ROSUVASTATIN 10 MG TAB (CRESTOR) PO SCH (08:50)
[2023-10-23] MEDS: ENOXAPARIN 40MG/0.4ML SYRINGE (J1650 PER 10MG) SC SCH (08:51)
[2023-10-23] MEDS: ASPIRIN 81MG ENTERIC TABLET PO SCH (08:51)
[2023-10-23] MEDS: FLUoxetine 20MG CAP PO SCH (08:51)
[2023-10-23] MEDS ORDERED: ANASTROZOLE 1MG TABLET (PATIENT'S OWN MED) PO SCH ×2 (09:00)
[2023-10-23 09:59] LABS: ABG BASE EXCESS 0.9 (-2.0-2.0); ABG HCO3 26.7 MMOL/L (22.0-26.0); ABG O2 SATURATION 97.4 % (95.0-99.0); ABG PARTIAL PRESSURE CO2 47.5 mmHg (35.0-45.0); ABG PARTIAL PRESSURE O2 97.6 mmHg (75.0-100.0); ABG STANDARD HCO3 25.3 MMOL/L. (22.0-26.0); ABG TOTAL CO2 28.2 MMOL/L (23.0-31.0); ABG pH (ARTERIAL) 7.368 UNITS (7.350-7.450)
[2023-10-23] MEDS: ONDANSETRON 4MG 2ML VIAL IV PRN (11:30)
[2023-10-23] MEDS: MOM 30ML SUSPENSION UDC PO PRN (11:30)
[2023-10-23 12:00] VITALS: BP 130/62; TEMP 97.3; O2SAT 97
[2023-10-23] MEDS: traZODone 50 MG TAB PO SCH (20:48)
[2023-10-23 21:00] VITALS: BP 149/74; TEMP 98.1; O2SAT 96
[2023-10-24 03:30] VITALS: BP 136/57; TEMP 97.9; O2SAT 91
[2023-10-24 06:49] LABS: BASO % 0.5 % (0.0-1.0); EOS # 0.1 10^3/uL (0.0-0.5); EOS % 1.7 % (0.0-3.0); HEMATOCRIT 38.7 % (36.0-47.0); HEMOGLOBIN 11.8 g/dl (12.0-15.5); LYMPH % 17.5 % (24.0-44.0); MEAN CORPUSCULAR HEMOGLOBIN 27.1 pg (27.0-33.0); MEAN CORPUSCULAR HGB CONC 30.5 g/dl (32.0-36.5); MONO # 0.5 10^3/uL (0.0-0.8); NEUTROPHILS # 4.2 10^3/uL (1.5-8.5); PLATELET COUNT, AUTOMATED 148 10^3/uL (150-450); RED BLOOD COUNT 4.35 10^6/uL (4.00-5.40); WHITE BLOOD COUNT 5.8 10^3/uL (4.0-10.0)
[2023-10-24 07:23] LABS: CREATININE FOR GFR 1.4 MG/DL (0.55-1.30); GLOMERULAR FILTRATION RATE 39.6 (>39); MAGNESIUM LEVEL 2.3 MG/DL (1.8-2.4); POTASSIUM SERUM 4.1 MMOL/L (3.5-5.1)
[2023-10-24 12:00] VITALS: BP 142/61; TEMP 97.5; O2SAT 99
[2023-10-24 20:00] VITALS: BP 146/66; TEMP 97.3; O2SAT 97
[2023-10-25 04:00] VITALS: BP 154/59; TEMP 98.3; O2SAT 94
[2023-10-25 05:53] LABS: BASO % 0.4 % (0.0-1.0); EOS # 0.2 10^3/uL (0.0-0.5); EOS % 3.2 % (0.0-3.0); HEMATOCRIT 37.6 % (36.0-47.0); HEMOGLOBIN 11.5 g/dl (12.0-15.5); LYMPH % 21.6 % (24.0-44.0); MEAN CORPUSCULAR HEMOGLOBIN 28.1 pg (27.0-33.0); MEAN CORPUSCULAR HGB CONC 30.6 g/dl (32.0-36.5); MEAN CORPUSCULAR VOLUME 91.9 fl (80.0-96.0); MONO # 0.4 10^3/uL (0.0-0.8); MONO % 8.4 % (2.0-8.0); NEUTROPHILS # 3.1 10^3/uL (1.5-8.5); PLATELET COUNT, AUTOMATED 141 10^3/uL (150-450); RED BLOOD COUNT 4.09 10^6/uL (4.00-5.40); WHITE BLOOD COUNT 4.6 10^3/uL (4.0-10.0)
[2023-10-25 06:15] LABS: CREATININE FOR GFR 1.31 MG/DL (0.55-1.30); GLOMERULAR FILTRATION RATE 42.7 (>39); MAGNESIUM LEVEL 2.2 MG/DL (1.8-2.4); POTASSIUM SERUM 3.8 MMOL/L (3.5-5.1)
[2023-10-25 08:40] VITALS: BP 118/62
[2023-10-25] MEDS: UNRESOLVED PATIENT OWN MED ORDER XX SCH (08:47)
[2023-10-25] MEDS ORDERED: MECLIZINE 25 MG TABLET PO PRN (08:55)
[2023-10-25] MEDS ORDERED: AMLO1TAB25 PO (08:57)
[2023-10-25] MEDS ORDERED: MECL-209 PO (09:13)
[2023-10-25] MEDS: MECLIZINE 25 MG TABLET PO ONE (10:12)
[2023-10-25 12:00] VITALS: BP 152/60; TEMP 97.7; O2SAT 97
== END 2023-10-25 14:20 | disposition home health service (06) | DRG 149 ==
LOC: M ED 11:30 → EDBD 11:30 → M ED INP 20:52 → M MSPAV 23:24
PROVIDERS: ADMIT Preventive Medicine Undersea and Hyperbaric Medicine; ATTEND General Practice
DX: R42 Dizziness and giddiness (principal); E87.29 Other acidosis; Z68.43 Body mass index [BMI] 50.0-59.9, adult; I13.0 Hypertensive heart and chronic kidney disease with heart failure and stage 1 through stage 4 chronic kidney disease, or unspecified chronic kidney disease; I44.0 Atrioventricular block, first degree; F32.A Depression, unspecified; E11.22 Type 2 diabetes mellitus with diabetic chronic kidney disease; I50.9 Heart failure, unspecified; E66.01 Morbid (severe) obesity due to excess calories; J45.909 Unspecified asthma, uncomplicated; E78.5 Hyperlipidemia, unspecified; N18.30 Chronic kidney disease, stage 3 unspecified; K21.9 Gastro-esophageal reflux disease without esophagitis; C50.912 Malignant neoplasm of unspecified site of left female breast; G47.33 Obstructive sleep apnea (adult) (pediatric); Z79.899 Other long term (current) drug therapy; Z79.82 Long term (current) use of aspirin; Z88.8 Allergy status to other drugs, medicaments and biological substances

== ENCOUNTER → 2023-11-11 | Outpatient (CLI) | payer OTHER, MEDICAID ==
[~2023-11-11] MED LIST changes: +ACET-907 PO; +AMLO1TAB25 PO; +LEVO1TAB39 PO; +MECL-209 PO; +MULTTAB14 PO; +THEO300T33
== END ==
LOC: M RAD 14:28
PROVIDERS: ATTEND Nurse Practitioner Family
DX: N39.41 Urge incontinence (principal)

== ENCOUNTER → 2023-11-16 | Outpatient (REF) | payer MEDICARE, MEDICAID ==
[2023-11-16 18:40] LABS: APPEARANCE, URINE HAZY (CLEAR); BACTERIA, URINE AUTO 2+ (NEGATIVE); BILIRUBIN, URINE AUTO NEGATIVE (NEGATIVE); BLOOD, URINE BLOOD 1+ (NEGATIVE); COLOR, URINE YELLOW (YELLOW); GLUCOSE, URINE (UA) AUTO 1+ mg/dL (NEGATIVE); KETONE, URINE AUTO NEGATIVE (NEGATIVE); LEUKOCYTE ESTERASE, URINE AUTO 3+ (NEGATIVE); NITRITE, URINE AUTO NEGATIVE (NEGATIVE); PROTEIN, URINE AUTO NEGATIVE (NEGATIVE); RBC, URINE AUTO 2 /HPF (0-3); SPECIFIC GRAVITY URINE AUTO 1.008 (1.002-1.035); SQUAMOUS EPITHELIAL CELL UR AU 1 /HPF (0-6); UROBILINOGEN, URINE AUTO 0.2 mg/dL (0.0-2.0); WBC, URINE AUTO 84 /HPF (0-3)
== END ==
LOC: M SMT 16:50
PROVIDERS: ATTEND Physician Assistant
DX: R30.0 Dysuria (principal)

== ENCOUNTER → 2023-11-17 | Outpatient (CLI) | payer OTHER, MEDICAID | LOC: M PLAIMG 09:06 | PROVIDERS: ATTEND Physician Assistant | DX: N23 Unspecified renal colic (principal); N26.1 Atrophy of kidney (terminal); R91.8 Other nonspecific abnormal finding of lung field; K57.30 Diverticulosis of large intestine without perforation or abscess without bleeding; K44.9 Diaphragmatic hernia without obstruction or gangrene; K43.9 Ventral hernia without obstruction or gangrene ==

== ENCOUNTER 2024-03-02 12:04 | Emergency (ER) | payer OTHER, MEDICAID ==
[~2024-03-02] VITALS: Ht 162.6 cm; Wt 130.9 kg
[~2024-03-02 12:04] MED LIST changes: -CYCL5TAB PO; +CYCL5TAB4 PO; +GABA-1172 PO; -GABA-282 PO; -ROSU20TA61 PO; +ROSU20TA86 PO
[2024-03-02 12:36] VITALS: BP 215/95
[2024-03-02] MEDS: FUROSEMIDE 40 MG TAB PO ONE (12:36)
[2024-03-02 12:39] LABS: BASO % 0.5 % (0.0-1.0); EOS # 0.2 10^3/uL (0.0-0.5); EOS % 2.8 % (0.0-3.0); HEMATOCRIT 43.1 % (36.0-47.0); HEMOGLOBIN 13.2 g/dl (12.0-15.5); LYMPH # 0.5 10^3/uL (1.5-5.0); LYMPH % 8.8 % (24.0-44.0); MEAN CORPUSCULAR HEMOGLOBIN 26.6 pg (27.0-33.0); MEAN CORPUSCULAR HGB CONC 30.6 g/dl (32.0-36.5); MEAN CORPUSCULAR VOLUME 86.7 fl (80.0-96.0); MONO # 0.4 10^3/uL (0.0-0.8); MONO % 6.5 % (2.0-8.0); NEUTROPHILS # 4.9 10^3/uL (1.5-8.5); NEUTROPHILS % 80.9 % (36.0-66.0); PLATELET COUNT, AUTOMATED 199 10^3/uL (150-450); RED BLOOD COUNT 4.97 10^6/uL (4.00-5.40)
[2024-03-02 13:03] LABS: C REACTIVE PROTEIN QUANTITATIV 3.2 MG/DL (<1.0)
[2024-03-02 13:05] LABS: ALBUMIN 3.2 G/DL (3.2-5.2); BILIRUBIN,DIRECT 0.1 MG/DL (<0.4); BILIRUBIN,TOTAL 0.4 MG/DL (0.3-1.2); CALCIUM LEVEL 9.5 MG/DL (8.3-10.6); CREATININE FOR GFR 1.29 MG/DL (0.55-1.30); GLOMERULAR FILTRATION RATE 43.4 (>39); POTASSIUM SERUM 3.6 MMOL/L (3.5-5.1); TOTAL PROTEIN 6.4 G/DL (5.7-8.2)
[2024-03-02 13:06] LABS: ERYTHROCYTE SEDIMENTATION RATE 69 mm/hr (0-30)
[2024-03-02 13:12] LABS: PROCALCITONIN 0.06 ng/ml
[2024-03-02] MEDS ORDERED: AMPICILLIN SOD/SULBACTAM SOD 3 GM in DEXTROSE 5% (D5W) ADV/MINI-BAG 50 ML IV ONE (13:20)
[2024-03-02] MEDS: AMPICILLIN SOD/SULBACTAM SOD 3 GM in SODIUM CHLORIDE 0.9% 100ML ADD 100 ML IV ONE (13:56)
[2024-03-02] MEDS ORDERED: AMOX875T2 PO (14:10)
[2024-03-02 15:01] VITALS: BP 155/73
[2024-03-02 15:04] VITALS: TEMP 97.7; O2SAT 98
== END 2024-03-02 15:26 | disposition home or self-care (01) ==
LOC: EDBD 12:04 → M ED 12:04
DX: L03.113 Cellulitis of right upper limb (principal); W55.03XA Scratched by cat, initial encounter; E11.9 Type 2 diabetes mellitus without complications; I10 Essential (primary) hypertension; J45.909 Unspecified asthma, uncomplicated; K21.9 Gastro-esophageal reflux disease without esophagitis; F41.9 Anxiety disorder, unspecified; F32.9 Major depressive disorder, single episode, unspecified; Z86.718 Personal history of other venous thrombosis and embolism; Z86.79 Personal history of other diseases of the circulatory system; Z91.048 Other nonmedicinal substance allergy status; Z88.8 Allergy status to other drugs, medicaments and biological substances; Z79.52 Long term (current) use of systemic steroids; Z79.2 Long term (current) use of antibiotics; Z79.82 Long term (current) use of aspirin; Z79.899 Other long term (current) drug therapy; Y99.9 Unspecified external cause status
CPT/HCPCS: 80048; 80076; 83605; 84145; 85025; 85652; 86140; 87040; 87070; 87077; 87186; 87205; 93041; 94760; 96365; 96366; 99285; J0295

== ENCOUNTER → 2024-03-20 | Outpatient (CLI) | payer OTHER, MEDICAID ==
[~2024-03-20] MED LIST changes: +AMOX875T2 PO; +NYST1POW3 TOP
== END ==
LOC: M ONCR 09:38
PROVIDERS: ATTEND General Practice
DX: C50.212 Malignant neoplasm of upper-inner quadrant of left female breast (principal); B37.89 Other sites of candidiasis; Z92.21 Personal history of antineoplastic chemotherapy; Z98.890 Other specified postprocedural states; Z92.3 Personal history of irradiation; Z79.811 Long term (current) use of aromatase inhibitors; J30.89 Other allergic rhinitis; Z91.048 Other nonmedicinal substance allergy status; Z88.8 Allergy status to other drugs, medicaments and biological substances; Z79.82 Long term (current) use of aspirin; Z79.84 Long term (current) use of oral hypoglycemic drugs; Z79.899 Other long term (current) drug therapy

== ENCOUNTER → 2024-05-31 | Outpatient (REF) | payer OTHER, MEDICAID, MEDICARE ==
[2024-05-31 13:45] LABS: APPEARANCE, URINE CLOUDY (CLEAR); BACTERIA, URINE AUTO 2+ (NEGATIVE); BILIRUBIN, URINE AUTO NEGATIVE (NEGATIVE); BLOOD, URINE BLOOD NEGATIVE (NEGATIVE); COLOR, URINE YELLOW (YELLOW); GLUCOSE, URINE (UA) AUTO 3+ mg/dL (NEGATIVE); KETONE, URINE AUTO NEGATIVE (NEGATIVE); LEUKOCYTE ESTERASE, URINE AUTO 3+ (NEGATIVE); MUCUS, URINE SMALL (NEGATIVE); NITRITE, URINE AUTO POSITIVE (NEGATIVE); PROTEIN, URINE AUTO 1+ mg/dL (NEGATIVE); RBC, URINE AUTO 1 /HPF (0-3); SPECIFIC GRAVITY URINE AUTO 1.021 (1.002-1.035); SQUAMOUS EPITHELIAL CELL UR AU 2 /HPF (0-6); UROBILINOGEN, URINE AUTO 0.2 mg/dL (0.0-2.0); WBC, URINE AUTO 183 /HPF (0-3)
== END ==
LOC: M SMT 12:24
PROVIDERS: ATTEND Physician Assistant
DX: N39.41 Urge incontinence (principal)

== ENCOUNTER → 2024-08-07 | Outpatient (CLI) | payer OTHER, MEDICAID ==
[~2024-08-07] MED LIST changes: -AMBI5TAB PO; +ATOR40TA75; +BUPR-364 PO; +BUPR-670 PO; -BUPR1TAB52 PO; +CLOP75TA2; +JARD1TAB; +LOSA25TA13; +OMEG10002 PO; +ZOLP-532 PO
== END ==
LOC: M PLAIMG 09:02
PROVIDERS: ATTEND Physician Assistant
DX: R20.0 Anesthesia of skin (principal)

== ENCOUNTER → 2024-08-13 | Outpatient (REF) | payer OTHER, MEDICAID | LOC: M LAB REF 17:24 | PROVIDERS: ATTEND Nurse Practitioner Adult Health | DX: N18.32 Chronic kidney disease, stage 3b (principal); J45.909 Unspecified asthma, uncomplicated ==

== ENCOUNTER → 2024-10-19 | Outpatient (CLI) | payer OTHER, MEDICAID | LOC: M WHC 10:33 | PROVIDERS: ATTEND Dietitian, Registered | DX: Z12.31 Encounter for screening mammogram for malignant neoplasm of breast (principal); R92.313 Mammographic fatty tissue density, bilateral breasts; Z79.83 Long term (current) use of bisphosphonates ==

== ENCOUNTER → 2024-11-14 | Outpatient (REF) | payer OTHER, MEDICAID ==
[~2024-11-14] MED LIST changes: +ACET-1515 PO; -ACET650T15 PO
== END ==
LOC: M LAB REF 14:10
PROVIDERS: ATTEND Nurse Practitioner Adult Health
DX: N18.32 Chronic kidney disease, stage 3b (principal); J45.909 Unspecified asthma, uncomplicated

== ENCOUNTER → 2024-12-17 | Outpatient (CLI) | payer OTHER, MEDICAID | LOC: M RAD 12:44 | PROVIDERS: ATTEND Physician Assistant | DX: N20.0 Calculus of kidney (principal) ==

== ENCOUNTER → 2025-01-04 | Outpatient (REF) | payer OTHER, MEDICAID, MEDICARE ==
[~2025-01-04] MED LIST changes: +CHOL125C5 PO; +OXYB15TA14
[2025-01-04 17:33] LABS: APPEARANCE, URINE CLOUDY (CLEAR); BACTERIA, URINE AUTO 2+ (NEGATIVE); BILIRUBIN, URINE AUTO NEGATIVE (NEGATIVE); BLOOD, URINE BLOOD NEGATIVE (NEGATIVE); GLUCOSE, URINE (UA) AUTO 3+ mg/dL (NEGATIVE); KETONE, URINE AUTO NEGATIVE (NEGATIVE); LEUKOCYTE ESTERASE, URINE AUTO 3+ (NEGATIVE); NITRITE, URINE AUTO NEGATIVE (NEGATIVE); PROTEIN, URINE AUTO 1+ mg/dL (NEGATIVE); RBC, URINE AUTO 0 /HPF (0-3); SPECIFIC GRAVITY URINE AUTO 1.016 (1.002-1.035); SQUAMOUS EPITHELIAL CELL UR AU 3 /HPF (0-6); UROBILINOGEN, URINE AUTO 0.2 mg/dL (0.0-2.0); WBC, URINE AUTO TNTC /HPF (0-3)
== END ==
LOC: EEVIPCON 16:55 → M SMT 16:55
PROVIDERS: ATTEND Physician Assistant
DX: N39.41 Urge incontinence (principal)

== ENCOUNTER 2025-01-13 12:43 | Emergency (ER) | payer MEDICAID, MEDICARE, OTHER ==
[~2025-01-13] VITALS: Ht 160 cm; Wt 122.6 kg
[2025-01-13] MEDS ORDERED: ISOVUE-370 76% 100 ML VIAL As Ordered ONE (13:01)
[2025-01-13 13:15] LABS: BASO # 0.0 10^3/uL (0.0-0.2); BASO % 0.6 % (0.0-1.0); EOS # 0.0 10^3/uL (0.0-0.5); EOS % 0.3 % (0.0-3.0); LYMPH # 0.6 10^3/uL (1.5-5.0); LYMPH % 9.1 % (24.0-44.0); MONO # 0.3 10^3/uL (0.0-0.8); MONO % 3.9 % (2.0-8.0); NEUTROPHILS # 6.0 10^3/uL (1.5-8.5); NEUTROPHILS % 85.8 % (36.0-66.0); PLATELET COUNT, AUTOMATED 194 10^3/uL (150-450)
[2025-01-13 13:27] LABS: INR 0.98
[2025-01-13 13:49] LABS: MAGNESIUM LEVEL 1.9 MG/DL (1.8-2.4)
[2025-01-13 13:53] LABS: FREE T4 1.04 NG/DL (0.89-1.76)
[2025-01-13] MEDS: KETOROLAC 30 MG/ML 1 ML VIAL IV ONE (14:02)
[2025-01-13] MEDS: MECLIZINE 25 MG TABLET PO ONE (14:02)
[2025-01-13 14:32] LABS: APPEARANCE, URINE CLEAR (CLEAR); BACTERIA, URINE AUTO NEGATIVE (NEGATIVE); BILIRUBIN, URINE AUTO NEGATIVE (NEGATIVE); BLOOD, URINE BLOOD NEGATIVE (NEGATIVE); GLUCOSE, URINE (UA) AUTO 3+ mg/dL (NEGATIVE); KETONE, URINE AUTO NEGATIVE (NEGATIVE); LEUKOCYTE ESTERASE, URINE AUTO TRACE (NEGATIVE); NITRITE, URINE AUTO NEGATIVE (NEGATIVE); PROTEIN, URINE AUTO NEGATIVE (NEGATIVE); RBC, URINE AUTO 0 /HPF (0-3); SPECIFIC GRAVITY URINE AUTO 1.027 (1.002-1.035); SQUAMOUS EPITHELIAL CELL UR AU 0 /HPF (0-6); UROBILINOGEN, URINE AUTO 0.2 mg/dL (0.0-2.0); WBC, URINE AUTO 3 /HPF (0-3)
[2025-01-13] MEDS ORDERED: MECL-209 PO (15:50)
[2025-01-13 15:59] VITALS: BP 149/69; TEMP 97.3; O2SAT 100
== END 2025-01-13 16:04 | disposition home or self-care (01) ==
LOC: M ED 12:43
DX: H81.4 Vertigo of central origin (principal); M47.812 Spondylosis without myelopathy or radiculopathy, cervical region; I65.03 Occlusion and stenosis of bilateral vertebral arteries; I65.23 Occlusion and stenosis of bilateral carotid arteries; M50.30 Other cervical disc degeneration, unspecified cervical region; M25.78 Osteophyte, vertebrae; I70.0 Atherosclerosis of aorta; E11.9 Type 2 diabetes mellitus without complications; I10 Essential (primary) hypertension; J45.909 Unspecified asthma, uncomplicated; K21.9 Gastro-esophageal reflux disease without esophagitis; F41.9 Anxiety disorder, unspecified; F32.9 Major depressive disorder, single episode, unspecified; Z86.79 Personal history of other diseases of the circulatory system; Z86.718 Personal history of other venous thrombosis and embolism; Z90.49 Acquired absence of other specified parts of digestive tract; Z88.8 Allergy status to other drugs, medicaments and biological substances; Z91.048 Other nonmedicinal substance allergy status; Z79.1 Long term (current) use of non-steroidal anti-inflammatories (NSAID); Z79.52 Long term (current) use of systemic steroids; Z79.899 Other long term (current) drug therapy; Z79.02 Long term (current) use of antithrombotics/antiplatelets
CPT/HCPCS: 70450; 70496; 70498; 70551; 71045; 80047; 81001; 83735; 84439; 84443; 85025; 85610; 85730; 93041; 94760; 96374; 96375; 99285; J1885; J3360; Q9967

== ENCOUNTER → 2025-01-21 | Outpatient (REF) | payer OTHER, MEDICAID | LOC: M LAB REF 13:41 | PROVIDERS: ATTEND Nurse Practitioner Adult Health | DX: N39.0 Urinary tract infection, site not specified (principal) ==

== ENCOUNTER → 2025-03-20 | Outpatient (CLI) | payer OTHER, MEDICAID | LOC: M ONCR 10:00 | PROVIDERS: ATTEND General Practice | DX: Z08 Encounter for follow-up examination after completed treatment for malignant neoplasm (principal); Z85.3 Personal history of malignant neoplasm of breast; Z92.21 Personal history of antineoplastic chemotherapy; Z92.3 Personal history of irradiation; Z98.890 Other specified postprocedural states; Z88.8 Allergy status to other drugs, medicaments and biological substances; Z91.048 Other nonmedicinal substance allergy status; J30.89 Other allergic rhinitis; Z79.82 Long term (current) use of aspirin; Z79.84 Long term (current) use of oral hypoglycemic drugs; Z79.899 Other long term (current) drug therapy ==

== ENCOUNTER → 2025-04-02 | Outpatient (REF) | payer OTHER, MEDICAID | LOC: M LAB REF 11:40 | PROVIDERS: ATTEND Nurse Practitioner Adult Health | DX: N39.0 Urinary tract infection, site not specified (principal); R30.0 Dysuria ==